=== PATIENT | female | born 1940 | race Caucasian/White ===

== ENCOUNTER 2022-07-01 10:46 | Outpatient (RCR) | payer MEDICARE, BC, SELFPAY | END 2022-12-28 23:59 | disposition home or self-care (01) | LOC: CCIC 10:46 | PROVIDERS: PCP Internal Medicine; Visit Provider Nurse Practitioner Family | DX: C50.912 Malignant neoplasm of unspecified site of left female breast (principal); Z17.0 Estrogen receptor positive status [ER+]; Z79.810 Long term (current) use of selective estrogen receptor modulators (SERMs) | CPT/HCPCS: 99212; 99213; 99214 ==

== ENCOUNTER 2022-07-02 08:40 | Outpatient (CLI) | payer MEDICARE, BC, SELFPAY ==
--- OUTSIDE RECORDS SUMMARY | 2022-07-02 08:44 | XMS_ITS | Encounter Summary ---
:1940 Author Organization [facility] Address [address] [place] [address] Care Team Providers Name Role Phone Elsewhere, Pcp Primary Care Provider Unavailable Reason for Visit Appointment Request (Routine) - Closed Specialty Diagnoses / Procedures Referred By Contact Refer red To Contact Preventive Medicine Referral ID Status Reason Start Date Expiration Date Visits Requ ested Visits Authorized [id number] Closed 07/09/2019 07/08/2020 1 Encounter Details Date Type Department Care Team Description 07/09/2019 Immunization Section of Preventive, Need Vaccine Transportation and Immunizat ion Influenza Occupational Medicine in [place], [place] [address] [place] [phone] Social History Tobacco Use Types Packs/Day Years Used Date Smoking Tobacco: Never Assessed Sex Assigned at Date Recorded Not on file documented as of this encounter Plan of Treatment Not on filedocumented as of this encounter Visit Diagnoses Diagnosis Need Vaccine Immunization Influenza documented in this encounter Care Teams Supervisor [employer] Workers Relationship Specialty Start Date End Date Elsewhere, Pcp PCP - General Family Medicine 10/09/18 documented as of this encounter
--- OUTSIDE RECORDS SUMMARY | 2022-07-02 08:44 | XMS_ITS | Encounter Summary ---
:1940 Author Organization [facility] Address [address] [place] [address] Care Team Providers Name Role Phone Elsewhere, Pcp Primary Care Provider Unavailable Reason for Visit Reason Comments Skin Check Appointment Request (Routine) - Closed Specialty Diagnoses / Procedures Referred By Contact Refer red To Contact Dermatology Referral ID Status Reason Start Date Expiration Date Visits Requ ested Visits Authorized [id number] Closed 10/09/2018 10/09/2019 1 Encounter Details Date Type Department Care Team Description 11/14/2018 Office Visit Department of Bethany Talamantes, Josee Acti heydi (Primary Dx); Dermatology in [place] C.N.[place], Sun Damaged Skin; [place], [place] M.S.N. Keratosis Seborrheic; [address] [place]ening [place] [address] [place], [place] [phone] Social History Tobacco Use Types Packs/Day Years Used Date Smoking Tobacco: Never Assessed Sex Assigned at Date Recorded Not on file documented as of this encounter H&P Notes Bethany Talamantes APRN C.N.P., M.S.N. - 11/14/2018 11:15 AM CST SUBJECTIVE CHIEF COMPLAINT / REASON FOR VISIT Skin cancer screening examination HISTORY OF PRESENT ILLNESS DISCLAIMER: Patient was made aware that I am trained as a Family Medicine Specialist and have a special interest in dermatology. However, I am not a tool mechanic. Anything beyond the scope of my abilities or comfort level will be referred to a Watch Inspector of their choosing. Lorraine is a very pleasant 78 y.o.-year-old female who presents for a full skin examination. She has ahistory of extensive sun exposure but denies any personal or family history of skin cancer. She has several spots that she would like evaluated today. Per nursing notes: Reason for visit: FSE More details of current skin concern: Nevus on abdomen Any other skin concerns: No Has the patient previously been a dermatology patient? No Is patient referred by another provider or self referred? Self Personal history of skin cancer? (include details) No Significant history of sun exposure? Yes Two or more blistering sunburns before age 17? Yes History of tanning bed use? No Personal history of other skin problems? No Family history of skin cancer? No Family history of other significant skin problems? No REVIEW OF SYSTEMS Constitutional, integumentary, and allergic/immunologic review of systems is otherwise negative except as otherwise remarked above or below. MEDICATIONS Current Outpatient Prescriptions Medication Sig Dispense Refill ??? ascorbic acid, vitamin C, (ascorbic acid with joseluis hips) 500 mg tablet Take 500 mg by mouth daily. ??? calcium carbonate-vitamin D3 1,250 mg (500 mg calcium)-200 unit per tablet Take 1 tablet by mouth daily with breakfast. ??? vitamins A,C,Y-snae-pjsoku (ICAPS AREDS) 14,320 Units-226 mg-200 Units per capsule Take 2 capsules by mouth daily. ??? exemestane (AROMASIN) 25 mg tablet TAKE ONE TABLET DAILY 90 tablet 2 ??? hydroCHLOROthiazide (HYDRODIURIL) 25 mg tablet 2 ??? levothyroxine (SYNTHROID, LEVOTHROID) 50 mcg tablet 2 No current facility-administered medications for this visit. ALLERGIES Allergies Allergen Reactions ??? Atorvastatin Hives ??? Ezetimibe Hives ??? Hydroxyzine Hallucinations ??? Sulfa (Sulfonamide Antibiotics) Hives ??? Tramadol Hives PAST MEDICAL/SURGICAL HISTORY Negative for skin cancer OBJECTIVE PHYSICAL EXAM GENERAL: Alert and orientated to person, place, and time. Well-nourished and groomed, in no acute distress. SKIN: A full skin examination was performed of the scalp, head, neck, face, hair, chest, abdomen, back, undergarments area, and 4 extremities including palms, soles, digits, and nails. Skin inspected and palpated where appropriate. Eyes and lips including vermilion lips, also examined. There are multiple seborrheic keratosis of the chest, abdomen, back, and extremities of benign appearance with moderately sun damaged skin. On the left preauricular cheek there is a 3-4 mm red scaly papule consistent with actinic keratosis. IMPRESSION/REPORT/PLAN #1 Keratosis Actinic We discussed risks, benefits, and alternatives of treatment and patient consented to destruction with cryotherapy. This premalignant lesion was destroyed with liquid nitrogen cryotherapy today. Post care instructions provided and patient advised to follow up this lesion fails to improve or worsens. #2 Sun Damaged Skin Due to chronic sun damage in order to reduce risk of skin cancer and flare of photo-sensitive dermatoses, we recommend use of broad-spectrum UVA/UVB 30 SPF or higher sunscreen 2 times daily to the skinand reapply when going outdoors for more than 30 minutes. #3 Keratosis Seborrheic The benign nature of the skin lesion(s) was discussed with the patient. No treatment is required. I recommend continued observation. Should symptoms or changes develop related to this condition, I would recommend a return visit for reassessment. #4 Screening Examination Skin Cancer A skin cancer screening was performed of the areas described above. The patient has a history of sundamaged skin. Therefore, recommended routine skin self- examinations with the aid of another trusted individual for assistance to evaluate for new, changing, symptomatic, or otherwise worrisome lesions of the skin as these can be signs of skin cancer. ABCDEs of melanoma discussed. Photoprotection was advised and strategies identified. Otherwise, return to Dermatology in 12-24 months for a full head-to-toe skin cancer screening. PATIENT EDUCATION Ready to learn, no apparent learning barriers were identified; learning preferences include listening. Explained diagnosis and treatment plan; patient expressed understanding of the content. GER FOOD SAFETY documented in this encounter Plan of Treatment Not on filedocumented as of this encounter Visit Diagnoses Diagnosis Keratosis Actinic - Primary Sun Damaged Skin Keratosis Seborrheic Screening Examination Skin Cancer documented in this encounter Care Teams Oracle R12 Developer Relationship Specialty Start Date End Date Elsewhere, Pcp PCP - General Family Medicine 10/09/18 documented as of this encounter
--- OUTSIDE RECORDS SUMMARY | 2022-07-02 08:44 | XMS_ITS | Encounter Summary ---
:1940 Author Organization [facility] Address [address] [place] [address] Care Team Providers Name Role Phone Elsewhere, Pcp Primary Care Provider Unavailable Reason for Referral Outpatient (Routine) - Closed Specialty Diagnoses / Referred By Referred To Cont act Procedures Contact Gastroenterology and Dorian Mensah [facility] Hepatology Tommy, B.Ch., Ph.D. [address] [place] [phone] Referral ID Status Reason Start Date Expiration Date Visits Requ ested Visits Authorized [id number] Closed 11/10/2020 11/10/2021 1 1 utpatient (Routine) - Closed Specialty Diagnoses / Procedures Referred By Contact Refer red To Contact Diagnoses Urgency Fecal Change In Bowel Habit Dorian Mensah M.B., [facility] Procedures Colonoscopy B.Ch., Ph.D. [address] [place] [phone] Referral ID Status Reason Start Date Expiration Date Visits Requ ested Visits Authorized [id number] Closed 11/10/2020 11/10/2021 1 1 utpatient (Routine) - Closed Specialty Diagnoses / Procedures Referred By Contact Refer red To Contact Diagnoses Urgency Fecal Change In Bowel Habit Dorian Mensah M.B., [facility] Procedures Anorectal Manometry B.Ch., Ph.D. [address] [place] [phone] Referral ID Status Reason Start Date Expiration Date Visits Requ ested Visits Authorized [id number] Closed 11/10/2020 11/10/2021 1 1 RANCE COUNSEL Reason for Visit Reason Comments Abdominal Pain [facility] Outpatient (Routine) - Closed Specialty Diagnoses / Referred By Contact Referred To Contact Procedures Gastroenterology and Diagnoses Abdominal Pain Frieda Alfaro [facility] Hepatology Abbie Plunkett [address] [place] [address] Referral ID Status Reason Start Date Expiration Date Visits Requ ested Visits Authorized [id number] Closed 09/16/2020 09/16/2021 1 1 Encounter Details Date Type Department Care Team Description 11/10/2020 Comprehensive Visit Division of Dary Alfaro M.D. [address] [place] [address] Urgency Fecal (Primary Dx); Gastroenterology in Stevie Black M.D., M.S. Abdominal Pain; [place], [place] Change In Bowel Habit [address] [place] [address] Social History Tobacco Use Types Packs/Day Years Used Date Smoking Tobacco: Never Smokeless Tobacco: Never Sex Assigned at Date Recorded Not on file documented as of this encounter Last Filed Vital Signs Vital Sign Reading Time Taken Comments Blood Pressure 154/71 11/10/2020 12:59 PM INSURANCE COUNSEL Pulse 74 11/10/2020 12:59 PM INSURANCE COUNSEL Temperature - - Respiratory Rate - - Oxygen Saturation - - Inhaled Oxygen Concentration - - Weight 74.4 kg (164 lb 0.4 oz) 11/10/2020 12:59 PM INSURANCE COUNSEL Height 165.6 cm (5' 5.2) 11/10/2020 12:59 PM INSURANCE COUNSEL Body Mass Index 27.13 11/10/2020 12:59 PM INSURANCE COUNSEL documented in this encounter Consult Notes Stveie Black M.D., M.S. - 11/10/2020 1:10 PM CST Images from the original note were not included. Referring Physician: Frieda Alfaro M.D. Primary Care Physician: ELSEWHERE, PCP Subjective: Chief Complaint/Reason for Consult: abdominal pain HPI: Mr. Caldwell is a 80-year-old female with history hypertension, hyperthyroidism, breast cancer who is being referred to GI Clinic for evaluation of 6-8 months of abdominal pain and diarrhea. Her symptoms all started sometime in Fall 2019 where she had sudden change in her stool pattern fromqd/qod (stool chart 3-4) with no associated abdominal pain. Starting in 06/2020, her BM changed up to three times daily with associated post defecation abdominal cramping (mid gastric to low abdominal R side that migrates to the deep pelvic region) with stool quality from 6-7. The caliber is approximately pencil width. She endorses urgency but denies rectal pain, tenesmus, melena, hematochezia (with exception of maybepink discolored discharge, sporadically on toilet paper), unintended weight loss, nausea, vomiting, heartburn, epigastric abdominal pain fevers, the rectal mucus discharge. There is no straining associations with achievement BM. With concerns for constipation, she has tried q.i.d. senna with no alleviation of symptoms, increasing amount of gas burden. She sought help withher PCP with imaging findings diverticulosis, significant stool burden seen with initiation of half c up full of MiraLax once daily. She reports there is no alleviation of her symptoms, but made her ???diarrhea?? worse, and more liquid in consistency. She tolerates a regular diet, has never been on any dietary restrictions in the past. No personal history of celiac disease (never been tested), IBD, liver disorders. No family history of IBD. There is no new medication that was started at the time of her onset of symptoms, with exception of starting Aleve 220 mg b.i.d. for her right shoulder pain, as she is currently waiting right shoulder replacement due to COVID 19 pandemic scheduling restrictions. Patient was seen at outside hospital for acute onset of cramping abdominal pain with associated diarrhea, anorexia in 07/2020 She has had outside workup as notable as following: Endoscopy History: Colonoscopy: 04/2012: WNL 07/2017: 2 tubular adenoma removed (path: unknown): repeat in 5 years 08/28/2020: CT abd/pelvis: Sigmoid diverticulosis, no evidence of acute diverticulitis. Excessive stool burden, negative obstruction of the small bowel. 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 Past Surgical History: Procedure Laterality Date ??? APPENDECTOMY ??? SECTION ??? MASTECTOMY Bilateral ??? THYROIDECTOMY - SUBTOTAL ??? TOTAL KNEE ARTHROPLASTY Bilateral Allergies Allergen Reactions ??? Atorvastatin Hives ??? Ezetimibe Hives ??? Hydroxyzine Hallucinations ??? Sulfa (Sulfonamide Antibiotics) Hives ??? Tramadol Hives Prior to Admission medications Medication Sig Start Date End Date Taking? Authorizing Provider ascorbic acid, vitamin C, (ascorbic acid with joseluis hips) 500 mg tablet Take 500 mg by mouth daily. Yes Provider, Historical calcium carbonate-vitamin D3 1,250 mg (500 mg calcium)-200 unit per tablet Take 1 tablet by mouth daily with breakfast. Yes Provider, Historical hydroCHLOROthiazide (HYDRODIURIL) 25 mg tablet 10/02/18 Yes Provider, Historical levothyroxine (SYNTHROID, LEVOTHROID) 50 mcg tablet 08/21/18 Yes Provider, Historical lisinopriL (PRINIVIL,ZESTRIL) 10 mg tablet Take 10 mg by mouth daily. Yes Provider, Historical naproxen sodium (ALEVE/ANAPROX) 220 mg tablet Take 220 mg by mouth 2 (two) times a day with meals. Yes Provider, Historical vitamins A,C,O-attv-ugtdey (ICAPS AREDS) 14,320 Units-226 mg-200 Units per capsule Take 2 capsules by mouth daily. Yes Provider, Historical exemestane (AROMASIN) 25 mg tablet T1T DAILY Patient not taking: Reported on 11/10/2020 12/19/19 Ariana Sanchez M.D. No family history on file. Family History of: Details Colon Cancer [x] No [] Yes Inflammatory Bowel Disease [x] No [] Yes Liver Disease [x] No [] Yes Social History Socioeconomic History ??? Marital status: Spouse name: None ??? Number of children: None ??? Years of education: None ??? Highest education level: None Occupational History ??? None Social Needs ??? Financial resource strain: None ??? Food insecurity Worry: None Inability: None ??? Transportation needs Medical: None Non-medical: None Tobacco Use ??? Smoking status: Never Smoker ??? Smokeless tobacco: Never Used Substance and Sexual Activity ??? Alcohol use: None ??? Drug use: None ??? Sexual activity: None Lifestyle ??? Physical activity Days per week: None Minutes per session: None ??? Stress: None Relationships ??? Social connections Talks on phone: None Gets together: None Attends yazidism service: None Active member of club or organization: None Attends meetings of clubs or organizations: None Relationship status: None ??? Intimate partner violence Fear of current or ex partner: None Emotionally abused: None Physically abused: None Forced sexual activity: None Other Topics Concern ??? None Social History Narrative ??? None Blood Transfusions:No NSAID use: Frequent: aleve 220 BID since 08/2020 Tattoos: No Review of Systems Pertinent items are noted in HPI. Objective: Vital Signs: Blood Pressure: (154)/(71) 154/71 Pulse Rate: [74] 74 Physical Exam Constitutional General: She is not in acute distress. Appearance: She is normal weight. She is not toxic-appearing. HENT Head: Normocephalic. Nose: Nose normal. Mouth/Throat: Mouth: Mucous membranes are dry. Pharynx: No oropharyngeal exudate or posterior oropharyngeal erythema. Eyes Extraocular Movements: Extraocular movements intact. Conjunctiva/sclera: Conjunctivae normal. Pupils: Pupils are equal, round, and reactive to light. Cardiovascular Rate and Rhythm: Normal rate and regular rhythm. Pulses: Normal pulses. Pulmonary Effort: Pulmonary effort is normal. Abdominal General: Abdomen is flat. Bowel sounds are normal. There is no distension. Palpations: There is no mass. Tenderness: There is abdominal tenderness. There is no guarding or rebound. Hernia: No hernia is present. Comments: Tenderness along LLQ and RLQ on palpation. Active bowel sounds. Palpable lumps along LLQ concerning for stool Genitourinary Neurological Mental Status: She is alert. I have obtained additional historical information from a family member or outside physician. Important points: per HPI Assessment/Plan: # Abdominal pain # Diarrhea # Change in bowel habitus Mr. Caldwell is a 80-year-old female with history hypertension, hyperthyroidism, breast cancer who is being referred to GI Clinic for evaluation of 6-8 months of abdominal pain and diarrhea. Her clinicalpresentation and exam is concerning for overflow diarrhea in the setting of evacuation disorder (I.e., pelvic floor dysfunction). There is no alarm/red flag symptoms such as personal/family hx of CRC, IBD, unintended weight loss or any surgical history concerning for any structural cause of her symptoms. However, it is notable that patient has had quite the sudden changes in bowel habitus, thus warrants a colonoscopy to interrogate for any occult mass or structural abnormality leading to her symptoms. The plan would be to obtain basic labs (CBC, celiac, etc) + anorectal manometry + colonoscopy and see Dr. Mensah back in clinic to discuss these results. Electronically signed by: Stevie Black M.D., M.S. 11/10/2020 1:52 PM INSURANCE COUNSEL Patient Education: Ready to learn, no apparent learning barriers were identified; learning preferences include listening. Explained diagnosis and treatment plan; patient expressed understanding of the content The patient's case was discussed and staffed with Dr. Mensah who agrees with the documented findings, assessment, and plan. Stevie Black M.D. PGY-2 Internal Medicine Resident Pager [phone] RANCE COUNSEL Dorian Mensah M.B., B.Ch., Ph.D. - 11/10/2020 1:10 PM CST Date of Consultation: 11/10/2020 Referring Provider: Frieda Alfaro M.D. Primary Care Physician: Primary Care Providers: Pcp, Elsewhere (General) No address on file Chief Complaint/Reason for Consult: Urgency Fecal [R15.2] SUBJECTIVE Lorraine Caldwell is a 80 y.o[address] female attending [facility] for evaluation of change in bowel habit. From passing 1 Hettinger stool scale type 3-4 bowel movement every day or every other day, with the use of Senokot regularly, she is now passing 3-4 Hettinger stool scale type 6-7 bowel movements associated with significant urgency and postprandial crampy abdominal pain. She has had no accidents but this is more because she is staying at home due to the pandemic. She has no weight loss, no nausea, no vomiting, no substantial fullness. Last colonoscopy was in 2015 demonstrated some tubular adenomas for evidence of cancer. Her personal history is pertinent for bilateral breast cancer both removed with surgery but no radiation or chemotherapy, tubal ligation. She has not had a cholecystectomy. ASSESSMENT / PLAN I have reviewed the history, examination and management plan with Dr Black the. I am in agreement with the substantive information provided in Eun Black's medical note. Any exceptions from this are documented in this note. #1 Abdominal Pain #2 Urgency Fecal #3 Change In Bowel Habit In talking to her in more detail she has a lifelong history of intermittent constipation, especiallyin times of stress. Last of her friend from pancreatic cancer. Will proceed anorectal manometry. We will perform some laboratory investigation. We will proceed to colonoscopy. I will see her back with the results of these investigations. RANCE COUNSEL documented in this encounter Plan of Treatment Scheduled Referrals Name Type Priority Associated Order Schedule Diagnoses Gastroenterology and Outpatient Routine Expecte d: Hepatology office visit Referral 10/21 (clinic) (Approximate), Expires: 11/10/2023 documented as of this encounter Results Anorectal Manometry (11/14/2020 5:25 PM INSURANCE COUNSEL) Narrative This result has an attachment that is no t available. Dorian Sanders, Kingsley., Ph.D. GI PROCEDURE ORDER BIBI Performing Organization Address City/State/[facility] Code Phon e Number MMODAL Ferritin (11/10/2020 3:14 PM INSURANCE COUNSEL) P athologist Signature Ferritin, S 91 11 - 307 11/10/2020 DTL mcg/L 4:36 PM INSURANCE COUNSEL Specimen Anatomical Collection Method Collection Time Receive d Time (Source) Location / / Volume Laterality Blood (Blood, 11/10/2020 3:14 PM 11/10/19 3:37 Venous) INSURANCE COUNSEL PM INSURANCE COUNSEL Dorian Sanders B.Ch., Ph.D. LAB BLOOD ADD-ON Performing Organization Address City/State/[facility] Phon e Number [facility] - [address] Iron and Total Iron-Binding Capacity (11/10/2020 3:14 PM INSURANCE COUNSEL) athologist [facility] Iron 85 35 - 145 11/10/2020 DTL mcg/dL 4:07 PM INSURANCE COUNSEL Total Iron 268 250 - 400 11/10/2020 DTL Binding Capacity mcg/dL 4:07 PM INSURANCE COUNSEL Percent 32 14 - 50 % 11/10/2020 DTL Saturation 4:07 PM INSURANCE COUNSEL Specimen Anatomical Collection Method Collection Time Receive d Time (Source) Location / / Volume Laterality Blood (Blood, 11/10/2020 3:14 PM 11/10/19 3:37 Venous) INSURANCE COUNSEL PM INSURANCE COUNSEL Dorian Sanders, B.Ch., Ph.D. LAB BLOOD ADD-ON Performing Organization Address [place]/[facility] Phon e Number [facility] - [address] (ABNORMAL) Comprehensive Metabolic Panel (11/10/2020 3:14 PM INSURANCE COUNSEL) athologist [facility] Potassium, S 4.3 3.6 - 5.2 11/10/2020 DTL mmol/L 4:05 PM INSURANCE COUNSEL Sodium, S 137 135 - 145 11/10/2020 DTL mmol/L 4:05 PM INSURANCE COUNSEL Chloride, S 98 98 - 107 11/10/2020 DTL mmol/L 4:05 PM INSURANCE COUNSEL Bicarbonate, S 30 (H) 22 - 29 11/10/2020 DTL mmol/L 4:05 PM INSURANCE COUNSEL Anion Gap 9 7 - 15 11/10/2020 DTL 4:05 PM INSURANCE COUNSEL BUN (Blood Urea 20 6 - 21 11/10/2020 DTL Nitrogen), S mg/dL 4:05 PM INSURANCE COUNSEL Creatinine 0.97 0.59 - 11/10/2020 DTL 1.04 mg/dL 4:05 PM INSURANCE COUNSEL eGFR-Non 56 (L) >=60 11/10/2020 DTL Black/ mL/min/BSA 4:05 PM INSURANCE COUNSEL Greek Comment: ----ADDITIONAL INFORMATION---- Estimated GFR calculated using the 2009 CKD_EPI creatinine equation. eGFR-Black/ 64 >=60 mL/min/BSA 2020 4:05 PM INSURANCE COUNSEL DTL Comment: ----ADDITIONAL INFORMATION---- Estimated GFR calculated using the 2009 CKD_EPI creatinine equation. Calcium, Total, S 9.4 8.8 - 10.2 mg/dL 11/10/2020 4:05 PM INSURANCE COUNSEL DTL Glucose, S 86 70 - 140 mg/dL 11/10/2020 4:05 PM INSURANCE COUNSEL D TL Protein, Total, S 6.4 6.3 - 7.9 g/dL 11/10/2020 4:05 P M INSURANCE COUNSEL DTL Albumin, S 4.3 3.5 - 5.0 g/dL 11/10/2020 4:05 PM INSURANCE COUNSEL D TL Aspartate Aminotransferase (AST), 21 8 - 43 U/L 11/10 4:05 PM INSURANCE COUNSEL DTL S Alkaline Phosphatase, S 78 35 - 104 U/L 11/10/2020 4: 05 PM INSURANCE COUNSEL DTL Alanine Aminotransferase (ALT), S 21 7 - 45 U/L 11/10 4:05 PM INSURANCE COUNSEL DTL Bilirubin, Total, S 0.3 <=1.2 mg/dL 11/10/2020 4:05 PM INSURANCE COUNSEL DTL Specimen Anatomical Collection Method Collection Time Receive d Time (Source) Location / / Volume Laterality Blood (Blood, 11/10/2020 3:14 PM 11/10/19 3:37 Venous) INSURANCE COUNSEL PM INSURANCE COUNSEL Dorian Sanders B.Ch., Ph.D. LAB BLOOD ADD-ON Performing Organization Address City/State/ZIP Code Phon e Number [facility] - [address] [place], [place] [address] [facility] [place] [address] [facility] [address] (ABNORMAL) CBC without Differential (11/10/2020 3:14 PM INSURANCE COUNSEL) [facility] Method Time Signature Hemoglobin 15.0 11.6 - 11/10/2020 DTL 15.0 g/dL 3:44 PM INSURANCE COUNSEL Hematocrit 45.7 (H) 35.5 - 11/10/2020 DTL 44.9 % 3:44 PM INSURANCE COUNSEL Erythrocytes 4.82 3.92 - 11/10/2020 DTL 5.13 3:44 PM INSURANCE COUNSEL x10(12)/L MCV 94.8 78.2 - 11/10/2020 DTL 97.9 fL 3:44 PM INSURANCE COUNSEL RBC Distrib Width 13.5 12.2 - 11/10/2020 DTL 16.1 % 3:44 PM INSURANCE COUNSEL Platelet Count 199 157 - 371 11/10/2020 DTL x10(9)/L 3:44 PM INSURANCE COUNSEL Leukocytes 4.9 3.4 - 9.6 11/10/2020 DTL x10(9)/L 3:44 PM INSURANCE COUNSEL Specimen Anatomical Collection Method Collection Time Receive d Time (Source) Location / / Volume Laterality Blood (Blood, 11/10/2020 3:14 PM 11/10/19 3:37 Venous) INSURANCE COUNSEL PM INSURANCE COUNSEL Dorian Sanders, B.Ch., Ph.D. LAB BLOOD ADD-ON Performing Organization Address City/State/ZIP Code Phon e Number [facility] - 200 [place], [place] [address] [facility] [place] [address] [facility] 200 [facility] Celiac Disease Serology [place] (11/10/2020 3:14 PM INSURANCE COUNSEL) Component Value Ref Test Analysis Performed Pathologis t Range Method Time At Signature Immunoglobulin A 131 61 - 356 11/11/2020 [facility] (IgA), S mg/dL 7:06 PM INSURANCE COUNSEL Celiac Disease Negative serology. Celiac di sease unlikely. However, approximately 10% of 11/12/2020 [facility] Interpretation patients with celiac disease are seronegative. Also, patients who are already 11:39 AM adhering to a gluten-free diet may be seronegative. If zelda iac disease is INSURANCE COUNSEL highly clinically suspected, consider HLA-DQ typing. Specimen Anatomical Collection Method Collection Time Receive d Time (Source) Location / / Volume Laterality Blood (Blood, 11/10/2020 3:14 PM 11/11/19 6:21 Venous) INSURANCE COUNSEL AM INSURANCE COUNSEL Narrative [facility] [address] SUPPORT REGINALDO R - 11/12/2020 11:39 AM INSURANCE COUNSEL Specimen Information: Specimen ID: [id number] Specimen Type: Blood Specimen Collection Start Date: 11/10/19 ??3:14 PM Specimen Received Date: 11/11/2020 ??6:2 1 AM Specimen ID: [id number] Specimen Type: Blood Specimen Collection Start Date: 11/10/19 ??3:14 PM Specimen Received Date: 11/11/2020 ??7:1 0 AM Dorian Sanders B.ChTong, Ph.D. LAB BLOOD ADD-ON Performing Organization Address City/State/ZIP Code Phon e Number [facility] [address] KRISHNA [place] [address] [facility] [place] [address] Laboratory Medicine and Pathology [address] KRISHNA documented in this encounter Visit Diagnoses Diagnosis Urgency Fecal - Primary Abdominal Pain Change In Bowel Habit Abdominal Pain Urgency Fecal Change In Bowel Habit documented in this encounter Care Teams Cascara Bark Cutter Relationship Specialty Start Date End Date Elsewhere, Pcp PCP - General Family Medicine 10/09/18 documented as of this encounter
--- OUTSIDE RECORDS SUMMARY | 2022-07-02 08:44 | XMS_ITS | Encounter Summary ---
:1940 Author Organization [facility] Address [address] [place] [address] Care Team Providers Name Role Phone Elsewhere, Pcp Primary Care Provider Unavailable Reason for Visit Reason Comments GI Motility Patient Education Encounter Details Date Type Department Care Team Description 11/17/2020 Clinical Division of [facility] Mot[facility]; Communication Gastroenterology in [facility] Patient Education [place], [place] Tommy, B.Ch., [address] [facility] [place] [address] Social History Tobacco Use Types Packs/Day Years Used Date Smoking Tobacco: Never Smokeless Tobacco: Never Alcohol Use Standard Drinks/Week Comments Yes 7 (1 standard drink = 0.6 oz pure alcoho l) Sex Assigned at Date Recorded Not on file documented as of this encounter Plan of Treatment Not on filedocumented as of this encounter Visit Diagnoses Not on filedocumented in this encounter Care Teams Spring Clipper Relationship Specialty Start Date End Date Elsewhere, Pcp PCP - General Family Medicine 10/09/18 documented as of this encounter
--- OUTSIDE RECORDS SUMMARY | 2022-07-02 08:44 | XMS_ITS | Encounter Summary ---
:1940 Author Organization [facility] Address [address] [place] [address] Care Team Providers Name Role Phone Unavailable Primary Care Provider Unavailable Reason for Visit Reason Comments Med Refill Encounter Details Date Type Department Care Team Description 10/02/2018 Refill Department of Oncology in [facility] Ariana swift M.D. Med Refill [place], [place] [address] [place] [address] [place], [place] [phone] Social History Tobacco Use Types Packs/Day Years Used Date Smoking Tobacco: Never Assessed Sex Assigned at Date Recorded Not on file documented as of this encounter Plan of Treatment Not on filedocumented as of this encounter Visit Diagnoses Not on filedocumented in this encounter
--- OUTSIDE RECORDS SUMMARY | 2022-07-02 08:44 | XMS_ITS | Encounter Summary ---
:1940 Author Organization [facility] Address [address] [place] [address] Care Team Providers Name Role Phone Elsewhere, Pcp Primary Care Provider Unavailable Encounter Details Date Type Department Care Team Description 01/19/2007 Historical Ophthalmology RST [place] [address] Social History Tobacco Use Types Packs/Day Years Used Date Smoking Tobacco: Never Assessed Sex Assigned at Date Recorded Not on file documented as of this encounter Progress Notes Ian Roy M.D. - 01/19/2007 8:12 AM CDT Eye General CHIEF COMPLAINT ? 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 No diplopia. She had pain in august and September but no eye pain now. Red and dry eyes. Genteal will help with the dry eyes. Thyroid: hyper in past, had surgical thyroidectomy at least 15 yrs ago in [facility]. On synthroid now Eyes: last year thought she had allergies, then in 07-25 had some discomfort OU. Was on cortisone drops during Sep which helped. Now does not have FBS, mild photophobia, no tearing, no pain/pressure, no diplopia. biggest concern is am I developing graves?. Goal today is definitive Dx. Overall courseis ??? 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 Get TSI #2 chronic blepharitis this might be responsible for her symptoms. Discussed. Warm compresses prn #3 right trochleitis reproduces her pain to press on this. this is her eye pain. Advil for now, could inject if bothers. 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
--- OUTSIDE RECORDS SUMMARY | 2022-07-02 08:44 | XMS_ITS | Encounter Summary ---
:1940 Author Organization [facility] Address [address] [place] [address] Care Team Providers Name Role Phone Elsewhere, Pcp Primary Care Provider Unavailable Encounter Details Date Type Department Care Team Description 11/10/2020 Hospital Encounter Department of Dorian Mensah Pain; Laboratory Medicine O, M.B., B.Ch., Elida cy Fecal; and Pathology, Ph.D. [facility] in [place], [place] [address] [place] [address] Social History Tobacco Use Types Packs/Day Years Used Date Smoking Tobacco: Never Smokeless Tobacco: Never Sex Assigned at Date Recorded Not on file documented as of this encounter Medications at Time of Discharge Medication Sig Dispensed Refills Start Date End Date calcium carbonate-vitamin D3 Take 1 tablet by 0 1,250 mg (500 mg mouth daily with calcium)-200 unit per tablet breakfast. exemestane (AROMASIN) 25 mg T1T DAILY 90 tablet 0 12/19/19 20 tablet hydroCHLOROthiazide 2 10/02/2018 (HYDRODIURIL) 25 mg tablet levothyroxine (SYNTHROID, 2 08/21/2018 LEVOTHROID) 50 mcg tablet lisinopriL Take 10 mg by 0 (PRINIVIL,ZESTRIL) 10 mg mouth daily. tablet vitamins A,C,K-bjfs-jnvtde Take 2 capsules 0 (ICAPS AREDS) 14,320 by mouth daily. Units-226 mg-200 Units per capsule ascorbic acid, vitamin C, Take 500 mg by 0 03/01/2022 (VITAMIN C) 500 mg tablet mouth daily. naproxen sodium Take 220 mg by 0 03/01 (ALEVE/ANAPROX) 220 mg mouth 2 (two) tablet times a day with meals. [id number] Drink 1st portion 1 box(es) 0 11/10/20201 tta-IaLp-LNp-asb-C of prep at 6 PM (MOVIPREP) 100-7.5-2.691 the evening gram per packet before. 2nd portion must be started 3 hours before and finished 2 hours prior to report time documented as of this encounter Plan of Treatment Not on filedocumented as of this encounter Procedures Procedure Name Priority Date/Time Associated Comments Diagnosis CELIAC DISEASE SEROLOGY Routine 11/10/2020 3:14 Abdomina l Pain Results for this CASCADE, S PM ADMISSIONS ASSISTANT Urgency Fecal procedure are in Change In Bowel the results Habit section. IRON AND TOT Routine 11/10/2020 3:14 Abdominal Pain Results for this IRON-BINDING CAPACITY, PM ADMISSIONS ASSISTANT Urgency F ecal procedure are in S/P Change In Bowel the results Habit section. TISSUE TRANSGLUTAMINASE Routine 11/10/2020 3:14 R esults for this (TTG) AB, IGA, S PM ADMISSIONS ASSISTANT procedure a re in the results section. CBC WITHOUT Routine 11/10/2020 3:14 Abdominal Pain Results for this DIFFERENTIAL, B PM ADMISSIONS ASSISTANT Urgency Fecal procedure are in Change In Bowel the results Habit section. FERRITIN, S Routine 11/10/2020 3:14 Abdominal Pain Results for this PM ADMISSIONS ASSISTANT Urgency Fecal procedure are in Change In Bowel the results Habit section. COMPREHENSIVE METABOLIC Routine 11/10/2020 3:14 Abdomina l Pain Results for this PANEL, S/P PM ADMISSIONS ASSISTANT Urgency Fecal procedure are in Change In Bowel the results Habit section. documented in this encounter Results tTG (Tissue Transglutaminase), Antibody, IgA (11/10/2020 3:14 PM ADMISSIONS ASSISTANT) Patholo gist Method Time Signature Tissue <1.2 <4.0 11/12/2020 [facility] Transglutaminase Ab, (Negative 10:48 AM ADMISSIONS ASSISTANT IgA, S ) U/mL Specimen Anatomical Collection Method Collection Time Receive d Time (Source) Location / / Volume Laterality Blood 11/10/2020 3:14 PM 7:55 ADMISSIONS ASSISTANT PM ADMISSIONS ASSISTANT Dorian Sanders, B.Ch., Ph.D. LAB BLOOD ADD-ON Performing Organization Address City/State/ZIP Code Phon e Number [facility] [address] [place], [place] [address] SUPPORT CENTER [facility] [place] [address] Laboratory Medicine and Pathology [address] [place] Ferritin (11/10/2020 3:14 PM ADMISSIONS ASSISTANT) athologist Signature Ferritin, S 91 11 - 307 11/10/2020 DTL mcg/L 4:36 PM ADMISSIONS ASSISTANT Specimen Anatomical Collection Method Collection Time Receive d Time (Source) Location / / Volume Laterality Blood (Blood, 11/10/2020 3:14 PM 11/10/19 3:37 Venous) ADMISSIONS ASSISTANT PM ADMISSIONS ASSISTANT Dorian Sanders, B.Ch., Ph.D. LAB BLOOD ADD-ON Performing Organization Address [facility] Phon e Number [facility] - [address] Iron and Total Iron-Binding Capacity (11/10/2020 3:14 PM ADMISSIONS ASSISTANT) athologist [facility] Iron 85 35 - 145 11/10/2020 DTL mcg/dL 4:07 PM ADMISSIONS ASSISTANT Total Iron 268 250 - 400 11/10/2020 DTL Binding Capacity mcg/dL 4:07 PM ADMISSIONS ASSISTANT Percent 32 14 - 50 % 11/10/2020 DTL Saturation 4:07 PM ADMISSIONS ASSISTANT Specimen Anatomical Collection Method Collection Time Receive d Time (Source) Location / / Volume Laterality Blood (Blood, 11/10/2020 3:14 PM 11/10/19 3:37 Venous) ADMISSIONS ASSISTANT PM ADMISSIONS ASSISTANT Dorian Sanders, B.Ch., Ph.D. LAB BLOOD ADD-ON Performing Organization Address City/[facility] Phon e Number [facility] - [address] [place], [place] [id number] [place] [address] (ABNORMAL) Comprehensive Metabolic Panel (11/10/2020 3:14 PM ADMISSIONS ASSISTANT) athologist [facility] Potassium, S 4.3 3.6 - 5.2 11/10/2020 DTL mmol/L 4:05 PM ADMISSIONS ASSISTANT Sodium, S 137 135 - 145 11/10/2020 DTL mmol/L 4:05 PM ADMISSIONS ASSISTANT Chloride, S 98 98 - 107 11/10/2020 DTL mmol/L 4:05 PM ADMISSIONS ASSISTANT Bicarbonate, S 30 (H) 22 - 29 11/10/2020 DTL mmol/L 4:05 PM ADMISSIONS ASSISTANT Anion Gap 9 7 - 15 11/10/2020 DTL 4:05 PM ADMISSIONS ASSISTANT BUN (Blood Urea 20 6 - 21 11/10/2020 DTL Nitrogen), S mg/dL 4:05 PM ADMISSIONS ASSISTANT Creatinine 0.97 0.59 - 11/10/2020 DTL 1.04 mg/dL 4:05 PM ADMISSIONS ASSISTANT eGFR-Non 56 (L) >=60 11/10/2020 DTL Black/ mL/min/BSA 4:05 PM ADMISSIONS ASSISTANT Mal[place]ian Comment: ----ADDITIONAL INFORMATION---- Estimated GFR calculated using the 2009 CKD_EPI creatinine equation. eGFR-Black/ 64 >=60 mL/min/BSA 2020 4:05 PM ADMISSIONS ASSISTANT DTL Comment: ----ADDITIONAL INFORMATION---- Estimated GFR calculated using the 2009 CKD_EPI creatinine equation. Calcium, Total, S 9.4 8.8 - 10.2 mg/dL 11/10/2020 4:05 PM ADMISSIONS ASSISTANT DTL Glucose, S 86 70 - 140 mg/dL 11/10/2020 4:05 PM ADMISSIONS ASSISTANT D TL Protein, Total, S 6.4 6.3 - 7.9 g/dL 11/10/2020 4:05 P M ADMISSIONS ASSISTANT DTL Albumin, S 4.3 3.5 - 5.0 g/dL 11/10/2020 4:05 PM ADMISSIONS ASSISTANT D TL Aspartate Aminotransferase (AST), 21 8 - 43 U/L 11/10 4:05 PM ADMISSIONS ASSISTANT DTL S Alkaline Phosphatase, S 78 35 - 104 U/L 11/10/2020 4: 05 PM ADMISSIONS ASSISTANT DTL Alanine Aminotransferase (ALT), S 21 7 - 45 U/L 11/10 4:05 PM ADMISSIONS ASSISTANT DTL Bilirubin, Total, S 0.3 <=1.2 mg/dL 11/10/2020 4:05 PM ADMISSIONS ASSISTANT DTL Specimen Anatomical Collection Method Collection Time Receive d Time (Source) Location / / Volume Laterality Blood (Blood, 11/10/2020 3:14 PM 11/10/19 3:37 Venous) ADMISSIONS ASSISTANT PM ADMISSIONS ASSISTANT Dorian O Rodrick M.B., B.Ch., Ph.D. LAB BLOOD ADD-ON Performing Organization Address [facility] Phon e Number [facility] - [address] (ABNORMAL) CBC without Differential (11/10/2020 3:14 PM ADMISSIONS ASSISTANT) Patholo gist Method Time Signature Hemoglobin 15.0 11.6 - 11/10/2020 DTL 15.0 g/dL 3:44 PM ADMISSIONS ASSISTANT Hematocrit 45.7 (H) 35.5 - 11/10/2020 DTL 44.9 % 3:44 PM ADMISSIONS ASSISTANT Erythrocytes 4.82 3.92 - 11/10/2020 DTL 5.13 3:44 PM ADMISSIONS ASSISTANT x10(12)/L MCV 94.8 78.2 - 11/10/2020 DTL 97.9 fL 3:44 PM ADMISSIONS ASSISTANT RBC Distrib Width 13.5 12.2 - 11/10/2020 DTL 16.1 % 3:44 PM ADMISSIONS ASSISTANT Platelet Count 199 157 - 371 11/10/2020 DTL x10(9)/L 3:44 PM ADMISSIONS ASSISTANT Leukocytes 4.9 3.4 - 9.6 11/10/2020 DTL x10(9)/L 3:44 PM ADMISSIONS ASSISTANT Specimen Anatomical Collection Method Collection Time Receive d Time (Source) Location / / Volume Laterality Blood (Blood, 11/10/2020 3:14 PM 11/10/19 3:37 Venous) ADMISSIONS ASSISTANT PM ADMISSIONS ASSISTANT Dorian Sanders B.Ch., Ph.D. LAB BLOOD ADD-ON Performing Organization Address City/[facility] Phon e Number [facility] - 200 [place], [place] [address] [facility] [address] Celiac Disease Serology [place] (11/10/2020 3:14 PM ADMISSIONS ASSISTANT) Component Value Ref Test Analysis Performed Pathologis t Range Method Time At Signature Immunoglobulin A 131 61 - 356 11/11/2020 [facility]SC (IgA), S mg/dL 7:06 PM ADMISSIONS ASSISTANT Celiac Disease Negative serology. Celiac di sease unlikely. However, approximately 10% of 11/12/2020 [facility] Interpretation patients with celiac disease are seronegative. Also, patients who are already 11:39 AM adhering to a gluten-free diet may be seronegative. If zelda iac disease is ADMISSIONS ASSISTANT highly clinically suspected, consider HLA-DQ typing. Specimen Anatomical Collection Method Collection Time Receive d Time (Source) Location / / Volume Laterality Blood (Blood, 11/10/2020 3:14 PM 11/11/19 6:21 Venous) ADMISSIONS ASSISTANT AM ADMISSIONS ASSISTANT Narrative [facility] SUPPORT REGINALDO R - 11/12/2020 11:39 AM ADMISSIONS ASSISTANT Specimen Information: Specimen ID: [id number] Specimen Type: Blood Specimen Collection Start Date: 11/10/19 ??3:14 PM Specimen Received Date: 11/11/2020 ??6:2 1 AM Specimen ID: [id number] Specimen Type: Blood Specimen Collection Start Date: 11/10/19 ??3:14 PM Specimen Received Date: 11/11/2020 ??7:1 0 AM Dorian Sanders, B.Ch., Ph.D. LAB BLOOD ADD-ON Performing Organization Address City/State/ZIP Code Phon e Number [facility] [address] [place] [address] SUPPORT CENTER [facility] [place] [address] Laboratory Medicine and Pathology [address] [place] documented in this encounter Visit Diagnoses Diagnosis Abdominal Pain Urgency Fecal Change In Bowel Habit documented in this encounter Care Teams Field Sales Agent Relationship Specialty Start Date End Date Elsewhere, Pcp PCP - General Family Medicine 10/09/18 documented as of this encounter
--- OUTSIDE RECORDS SUMMARY | 2022-07-02 08:44 | XMS_ITS | Encounter Summary ---
:1940 Author Organization [facility] Address [address] [place] [address] Care Team Providers Name Role Phone Elsewhere, Pcp Primary Care Provider Unavailable Reason for Visit Reason Comments GI Motility Local PT order Encounter Details Date Type Department Care Team Description 11/19/2020 Clinical Division of Rodrick GI Motility; Karla power Communication Gastroenterology in [place], [place] Tommy, B.Ch., [address] [facility] [address] Social History Tobacco Use Types Packs/Day Years [...] on filedocumented in this encounter Care Teams Facility Coordinator Relationship Specialty Start Date End Date Elsewhere, Pcp PCP - General Family Medicine 10/09/18 documented as of this encounter
--- OUTSIDE RECORDS SUMMARY | 2022-07-02 08:44 | XMS_ITS | Clinical Summary ---
:1940 Author Organization [facility] Address [address] [place] [address] Care Team Providers Name Role Phone Elsewhere, Pcp Primary Care Provider Unavailable Source Comments Patient records contain information from all sites at [facility]. For routine questions regarding patient records, call [phone] during business hours, M-F 8:00 AM - 5:00 PM Central Time. Record requests for emergency care only can be directed to [phone] at any time.[facility] Allergies Active Allergy Reactions Severity Noted Date Comments Atorvastatin Hives 01/19/2007 Ezetimibe Hives 01/19/2007 Hydroxyzine Hallucinations 03/14/2018 Sulfa (Sulfonamide Antibiotics) Hives 7 Tramadol Hives 01/19/2007 Medications Medication Sig Dispensed Refills Start Date End Date Status hydroCHLOROthiazide 2 10/02/2018 Active (HYDRODIURIL) 25 mg tablet levothyroxine (SYNTHROID, 2 08/21/2018 Active LEVOTHROID) 50 mcg tablet vitamins A,C,W-pwsj-pwvlvc Take 2 0 Active (ICAPS AREDS) 14,320 capsules by Units-226 mg-200 Units per mouth daily. capsule calcium carbonate-vitamin Take 1 tablet 0 Active D3 1,250 mg (500 mg by mouth daily calcium)-200 unit per with tablet breakfast. exemestane (AROMASIN) 25 T1T DAILY 90 tablet 0 12/19/2019 Active mg tablet lisinopriL Take 10 mg by 0 Activ e (PRINIVIL,ZESTRIL) 10 mg mouth daily. tablet Immunizations Name Administration Dates Next Due influenza high dose (65 years or older) (PF) 07/09/2019 Social History Tobacco Use Types Packs/Day Years Used Date Smoking Tobacco: Never Smokeless Tobacco: Never Alcohol Use Standard Drinks/Week Comments Yes 7 (1 standard drink = 0.6 oz pure alcoho l) Sex Assigned at Date Recorded Not on file Last Filed Vital Signs Vital Sign Reading Time Taken Comments Blood Pressure 129/55 11/13/2020 3:15 PM [employer]ITAL [employer] INTERN Pulse 60 11/13/2020 3:15 PM [employer] Temperature 36.3 ??C (97.3 ??F) 11/13/2020 3:09 PM D[employer]ITAL [employer]IA INTERN Respiratory Rate 9 11/13/2020 3:15 PM [employer] INTERN Oxygen Saturation 99% 11/13/2020 3:15 PM [employer] INTERN Inhaled Oxygen Concentration - - Weight 74.4 kg (164 lb 0.4 oz) 11/13/2020 12:22 PM D[employer] INTERN Height 165.6 cm (5' 5.2) 11/13/2020 12:22 PM DIGITAL MEDIA INTERN Body Mass Index 27.13 11/13/2020 12:22 PM DIGITAL MEDIA INTERN Plan of Treatment Health Maintenance Due Date Last Done Comments CT Colonography 1940 Cologuard 1940 Thyroid Stimulating Hormone (TSH) 1940 test for thyroid function Depression Screening (Annual 09/19/2021 PHQ-2) Fall Risk Screen (Annual) 09/19/2021 Creatinine Level 11/10/2021 11/10/2020 Potassium Level 11/10/2021 11/10/2020 Sodium Level 11/10/2021 11/10/2020 COVID-19 Vaccine (5 - Booster for 02/23/2022 12/29/2021, , Pfizer series) 11/18/2020, Additional history exists Influenza Vaccine (#1) 2022 06/16/2021, 06/13/2020, 07/09/2019, Additional history exists Colonoscopy 11/13/2025 11/13/2020, 11/13/2020, 11/13/2020 Colorectal Cancer Surveillance 11/13/2025 DTaP,Tdap,and Td Vaccines (3 - Td 12/09/2030 12/09/2020, , or Tdap) 08/07/2003 Pneumococcal vaccine (65+ years) Completed 04/24/2018, , 01/13/2007 Zoster Vaccines Completed 07/26/2018, 04/24/2018, 02/06/2010 Medical Devices Implanted Type Area Abstracter Device Shelf Model / Identifier Expiration Serial / Date Lot Knee Implant Knee Implant Bilateral : Knee Insurance Payer Benefit Plan Subscriber ID Effective Phone Address Typ e / Group Dates MEDICARE MEDICARE A [id number] 2006-Pres [address] [place] [address] [employer] [place] [id number] 2016-Pres [phone] PO PAVAN X Cost Share BLUE SHIELD BLUE COST ent [phone] [place] [address] Advance Directives For more information, please contact: [phone] Documents on File Type Date Recorded Patient Manager Nursing Home Explanati on Advance Directives 11/29/2006 12:00 AM Legacy doc ument. See document viewer. Care Teams Bricklayer'S Assistant Relationship Specialty Start Date End Date Elsewhere, Pcp PCP - General Family Medicine 10/09/18
--- OUTSIDE RECORDS SUMMARY | 2022-07-02 08:44 | XMS_ITS | Encounter Summary ---
:1940 Author Organization [facility] Address [address] [place] [address] Care Team Providers Name Role Phone Elsewhere, Pcp Primary Care Provider Unavailable Reason for Referral Outpatient (Routine) - Closed Specialty Diagnoses / Procedures Referred By Referred To Contact Contact Physical Medicine and Diagnoses Dysfunction Constipation Outlet Dorian Mensah, [facility] Rehabilitation Procedures PMR Pelvic floor & bowel/bladder programs Tommy, B.Ch., Ph.D. [address] [place] [address] Referral ID Status Reason Start Date Expiration Date Visits Requ ested Visits Authorized [id number] Closed 11/17/2020 11/17/2021 1 1 [employer]ATION LAW[employer]ER Reason for Visit Outpatient (Routine) - Closed Specialty Diagnoses / Referred By Referred To Cont act Procedures [facility] Tommy, B.Ch., Ph.D. [address] [place] [address] Referral ID Status Reason Start Date Expiration Date Visits Requ ested Visits Authorized [id number] Closed 11/10/2020 11/10/2021 1 1 Encounter Details Date Type Department Care Team Description 11/17/2020 Virtual Visit Division of Cristopher Mensah Gastroenterology in [place] Consti p[place], [place] B.Ch., Ph.D. (Primary Dx) [address] [place] [phone] Social History Tobacco Use Types Packs/Day Years Used Date Smoking Tobacco: Never Smokeless Tobacco: Never Alcohol Use Standard Drinks/Week Comments Yes 7 (1 standard drink = 0.6 oz pure alcoho l) Sex Assigned at Date Recorded Not on file documented as of this encounter Progress Notes Dorian Mensah M.B., B.Ch., Ph.D. - 11/17/2020 10:00 AM CST Date of Consultation: 11/17/2020 This was a virtual visit performed by Dr. Dorian Mensah at [facility] in [place] to Lorraine Caldwell in her home by real-time audio. Referring Provider: Tommy Esposito,* Primary Care Physician: Primary Care Providers: Pcp, Elsewhere (General) No address on file Chief Complaint/Reason for Consult: Dysfunction Constipation Outlet [K59.02] SUBJECTIVE Lorraien Caldwell is a 80 y.o. female attending [facility] for evaluation of change in bowel habit. From passing 1 [place] stool scale type 3-4 bowel movement every day or every other day, with the use of Senokot regularly, she is now passing 3-4 [place] stool scale type 6-7 bowel movements associated with significant urgency and postprandial crampy abdominal pain. She has had no accidents but this is more because she is staying at home due to the pandemic. She has no weight loss, no nausea, no vomiting, no substantial fullness. Last colonoscopy was in 2016 demonstrated some tubular adenomas for evidence of cancer. Her personal history is pertinent for bilateral breast cancer both removed with surgery but no radiation or chemotherapy, tubal ligation. She has not had a cholecystectomy. ASSESSMENT / PLAN #1 Constipation Outlet Type Anorectal manometry demonstrates manometric findings suggestive of an evacuation disorder and balloon expulsion test is prolonged. 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 Perhaps the precipitant was the recent passing of her close friend. I recommended pelvic floor physical therapy. She will attempt to source this locally and I have senther some information regarding this. I will organized for her to be sent information on pelvic floordysfunction and the 2 week pelvic floor rehabilitation program at [facility]. . #2 Colorectal Cancer Screening Colonoscopy, performed with good quality bowel preparation, demonstrated diverticular disease but noneoplastic lesions. A shared decision making model should be used to consider repeat colonoscopy forsurveillance purposes in 5 years. This should be undertaken with her primary care physician at the ap propriate time. #3 Follow Up I have not organized for return visit at the current time. If she returns for the 2 week pelvic floor rehabilitation program in consultation with me will be scheduled. This was a 10 minutes consultation of which 10 minutes was spent in counseling the patient. [employer]ATION LAWYER documented in this encounter Plan of Treatment Not on filedocumented as of this encounter Visit Diagnoses Diagnosis Dysfunction Constipation Outlet - Primar y documented in this encounter Care Teams Software Developer Manager Relationship Specialty Start Date End Date Elsewhere, Pcp PCP - General Family Medicine 10/09/18 documented as of this encounter
--- OUTSIDE RECORDS SUMMARY | 2022-07-02 08:44 | XMS_ITS | Encounter Summary ---
:1940 Author Organization [facility] Address [address] [place] [address] Care Team Providers Name Role Phone Elsewhere, Pcp Primary Care Provider Unavailable Reason for Visit Reason Comments Med Refill Encounter Details Date Type Department Care Team Description 12/19/2019 Refill Department of Oncology in [facility] [place] Ariana swift M.D. Med Refill [place], [place] [address] [place] [address] [place], [place] [phone] Social History Tobacco Use Types Packs/Day Years Used Date Smoking Tobacco: Never Assessed Sex Assigned at Date Recorded Not on file documented as of this encounter Plan of Treatment Not on filedocumented as of this encounter Visit Diagnoses Not on filedocumented in this encounter Care Teams Hold Worker Relationship Specialty Start Date End Date Elsewhere, Pcp PCP - General Family Medicine 10/09/18 documented as of this encounter
--- OUTSIDE RECORDS SUMMARY | 2022-07-02 08:44 | XMS_ITS | Encounter Summary ---
:1940 Author Organization [facility] Address [address] [place] [address] Care Team Providers Name Role Phone Elsewhere, Pcp Primary Care Provider Unavailable Reason for Visit Reason Comments Med Refill Encounter Details Date Type Department Care Team Description 02/18/2020 Refill Department of Oncology in [facility] Ariana swift M.D. Med Refill [place], [place] [address] [place] [address] [place], [place] [phone] Social History Tobacco Use Types Packs/Day Years Used Date Smoking Tobacco: Never Assessed Sex Assigned at Date Recorded Not on file documented as of this encounter Plan of Treatment Not on filedocumented as of this encounter Visit Diagnoses Not on filedocumented in this encounter Care Teams Holder Pile Driving Relationship Specialty Start Date End Date Elsewhere, Pcp PCP - General Family Medicine 10/09/18 documented as of this encounter
--- OUTSIDE RECORDS SUMMARY | 2022-07-02 08:44 | XMS_ITS | Encounter Summary ---
:1940 Author Organization [facility] Address [address] [place] [address] Care Team Providers Name Role Phone Elsewhere, Pcp Primary Care Provider Unavailable Encounter Details Date Type Department Care Team Description 05/05/2021 Orders Only [facility] Sa nathalie Alejandre M.D. [address] [place], [place] [phone] (Wo rk) Social History Tobacco Use Types Packs/Day Years [...] on filedocumented in this encounter Care Teams Fabrication And Assembly Supervisor Relationship Specialty Start Date End Date Elsewhere, Pcp PCP - General Family Medicine 10/09/18 documented as of this encounter
--- OUTSIDE RECORDS SUMMARY | 2022-07-02 08:44 | XMS_ITS | Encounter Summary ---
:1940 Author Organization [facility] Address [address] [place] [address] Care Team Providers Name Role Phone Elsewhere, Pcp Primary Care Provider Unavailable Reason for Referral Outpatient (Routine) - Closed Specialty Diagnoses / Procedures Referred By Contact Refer red To Contact Diagnoses Urgency Fecal Change In Bowel Habit Dorian Mensah M.B., [facility] Procedures Anorectal Manometry B.Ch., Ph.D. [address] [place] [address] Referral ID Status Reason Start Date Expiration Date Visits Requ ested Visits Authorized [id number] Closed 11/10/2020 11/10/2021 1 1 ATIONAL CONSULTANT Reason for Visit Outpatient (Routine) - Closed Specialty Diagnoses / Procedures Referred By Contact Refer red To Contact Diagnoses Urgency Fecal Change In Bowel Habit Dorian Mensah M.B., [facility] Procedures Anorectal Manometry B.Ch., Ph.D. [address] [place] [address] Referral ID Status Reason Start Date Expiration Date Visits Requ ested Visits Authorized [id number] Closed 11/10/2020 11/10/2021 1 1 Encounter Details Date Type Department Care Team Description 11/13/2020 Hospital Encounter Division of Rodrick, Urgency F ecal; Gastroenterology in Dorian Camargo Change I n Bowel Habit [place], [place] Tommy, B.Ch., [address] [place] [address] [place] [phone] Social History Tobacco Use Types Packs/Day [...] (PRINIVIL,ZESTRIL) 10 mg mouth daily. tablet vitamins A,C,R-wiqy-umobxn Take 2 capsules 0 (ICAPS AREDS) 14,320 by mouth daily. Units-226 mg-200 Units per capsule ascorbic acid, vitamin C, Take 500 mg by 0 03/01/2022 (VITAMIN C) 500 mg tablet mouth daily. naproxen sodium Take 220 mg by 0 03/01 (ALEVE/ANAPROX) 220 mg mouth 2 (two) tablet times a day with meals. documented as of this encounter Plan of Treatment Not on filedocumented as of this encounter Procedures Procedure Name Priority Date/Time Associated Diagnosis Comme nts ANORECTAL MANOMETRY Routine 11/14/2020 5:25 PM EDUCATIONAL CONSULTANT Urgen cy Fecal Change In Bowel Habit documented in this encounter Results Anorectal Manometry (11/14/2020 5:25 PM EDUCATIONAL CONSULTANT) Narrative This result has an attachment that is no t available. Dorian Sanders B.Ch., Ph.D. GI PROCEDURE ORDER BIBI Performing Organization Address City/State/ZIP Code Phon e Number MMODAL documented in this encounter Visit Diagnoses Diagnosis Urgency Fecal Change In Bowel Habit documented in this encounter Care Teams Senior Production Planner Relationship Specialty Start Date End Date Elsewhere, Pcp PCP - General Family Medicine 10/09/18 documented as of this encounter
--- OUTSIDE RECORDS SUMMARY | 2022-07-02 08:44 | XMS_ITS | Encounter Summary ---
:1940 Author Organization [facility] Address [address] [place] [address] Care Team Providers Name Role Phone Elsewhere, Pcp Primary Care Provider Unavailable Encounter Details Date Type Department Care Team Description 11/13/2020 Ancillary Procedure Department of Gastroenterology Social History Tobacco Use Types Packs/Day Years Used Date Smoking Tobacco: Never Smokeless Tobacco: Never Alcohol Use Standard Drinks/Week Comments Yes 7 (1 standard drink = 0.6 oz pure alcoho l) Sex Assigned at Date Recorded Not on file documented as of this encounter Plan of Treatment Not on filedocumented as of this encounter Procedures Procedure Name Priority Date/Time Associated Comments Diagnosis GASTROENTEROLOGY IMAGE Routine 11/13/2020 2:15 Re sults for this EXAM PM CHRISTMAS TREE FARM WORKER procedure are i n the results section. documented in this encounter Results Colon, Entire colon Colonoscopy-Gastroenterology Image Exam (11/13/2020 2:15 PM CHRISTMAS TREE FARM WORKER) Specimen (Source) Anatomical Collection Method Collection Time Re ceived Time Location / / Volume Laterality 11/13/2020 2:12 PM CHRISTMAS TREE FARM WORKER Narrative [facility] - 11/13/2020 3:16 PM CHRISTMAS TREE FARM WORKER This order has been created and auto-finalized to support the import of images acquired without order. The clini tono documentation to support these images can be found on the encounter jacob t produced images. Provider Not In System IMG NON RAD IMAGING PROCEDUR ES Performing Organization Address City/State/ZIP Code Phon e Number [facility] NA documented in this encounter Visit Diagnoses Not on filedocumented in this encounter Care Teams Auto Overhauler Relationship Specialty Start Date End Date Elsewhere, Pcp PCP - General Family Medicine 10/09/18 documented as of this encounter
--- OUTSIDE RECORDS SUMMARY | 2022-07-02 08:44 | XMS_ITS | Encounter Summary ---
:1940 Author Organization [facility] Address [address] [place] [address] Care Team Providers Name Role Phone Elsewhere, Pcp Primary Care Provider Unavailable Reason for Referral Outpatient (Routine) - Closed Specialty Diagnoses / Procedures Referred By Contact Refer red To Contact Diagnoses Urgency Fecal Change In Bowel Habit Dorian Mensah M.B., [facility] Procedures Colonoscopy B.Ch., Ph.D. [address] [place] [address] Referral ID Status Reason Start Date Expiration Date Visits Requ ested Visits Authorized [id number] Closed 11/10/2020 11/10/2021 1 1 RNET APPLICATION DEVELOPER Reason for Visit Outpatient (Routine) - Closed Specialty Diagnoses / Procedures Referred By Contact Refer red To Contact Diagnoses Urgency Fecal Change In Bowel Habit Dorian Mensah M.B., [facility] Procedures Colonoscopy B.Ch., Ph.D. [address] [place] [address] Referral ID Status Reason Start Date Expiration Date Visits Requ ested Visits Authorized [id number] Closed 11/10/2020 11/10/2021 1 1 Encounter Details Date Type Department Care Team Description 11/13/2020 Hospital Encounter Division of Alvarez Mensah F ecal; Gastroenterology in Dorian Camargo Change I n Bowel Habit [place], [place] Tommy, B.Ch., [address] [place] [address] [place] [phone] Social History Tobacco Use Types Packs/Day Years Used Date Smoking Tobacco: Never Smokeless Tobacco: Never Alcohol Use Standard Drinks/Week Comments Yes 7 (1 standard drink = 0.6 oz pure alcoho l) Sex Assigned at Date Recorded Not on file documented as of this encounter Last Filed Vital Signs Vital Sign Reading Time Taken Comments Blood Pressure 129/55 11/13/2020 3:15 PM INTERNET APPLICATION DEVELOPER Pulse 60 11/13/2020 3:15 PM INTERNET APPLICATION DEVELOPER Temperature 36.3 ??C (97.3 ??F) 11/13/2020 3:09 PM INTERNET APPLICATION DEVELOPER Respiratory Rate 9 11/13/2020 3:15 PM INTERNET APPLICATION DEVELOPER Oxygen Saturation 99% 11/13/2020 3:15 PM INTERNET APPLICATION DEVELOPER Inhaled Oxygen Concentration - - Weight 74.4 kg (164 lb 0.4 oz) 11/13/2020 12:22 PM INTERNET APPLICATION DEVELOPER Height 165.6 cm (5' 5.2) 11/13/2020 12:22 PM INTERNET APPLICATION DEVELOPER Body Mass Index 27.13 11/13/2020 12:22 PM INTERNET APPLICATION DEVELOPER documented in this encounter Medications at Time of Discharge [...] (PRINIVIL,ZESTRIL) 10 mg mouth daily. tablet vitamins A,C,M-caaf-vewqif Take 2 capsules 0 (ICAPS AREDS) 14,320 by mouth daily. Units-226 mg-200 Units per capsule ascorbic acid, vitamin C, Take 500 mg by 0 03/01/2022 (VITAMIN C) 500 mg tablet mouth daily. naproxen sodium Take 220 mg by 0 03/01 (ALEVE/ANAPROX) 220 mg mouth 2 (two) tablet times a day with meals. documented as of this encounter H&P Notes Neda Garcia M.D. - 11/13/2020 2:00 PM CST ASSESSMENT / PLAN Patient Name: Lorraine Caldwell Colonoscopy Procedure Department : DIVISION OF GASTROENTEROLOGY IN [place], [place] SUBJECTIVE Past Medical History: Diagnosis Date ??? Breast Cancer (Primary) NOS danie. ??? Hypertension NOS ??? Polyp Colon ??? Polyp Colon Adenomatous Family History Past Surgical History: Procedure Laterality Date ??? APPENDECTOMY ??? SECTION ??? MASTECTOMY Bilateral ??? MASTECTOMY danie. ??? THYROIDECTOMY - SUBTOTAL ??? TOTAL KNEE ARTHROPLASTY Bilateral OB History No obstetric history on file. Social History Socioeconomic History ??? Marital status: [...] Substance and Sexual Activity ??? Alcohol use: Yes Alcohol/week: 7.0 standard drinks Types: 7 Glasses of wine per week ??? Drug use: Never ??? Sexual activity: None Lifestyle ??? Physical activity Days per week: None Minutes per session: None ??? Stress: None Relationships ??? Social connections Talks on phone: None Gets together: None Attends amish service: None Active member of club or organization: None Attends meetings of clubs or organizations: None Relationship status: None ??? Intimate partner violence Fear of current or ex partner: None Emotionally abused: None Physically abused: None Forced sexual activity: None Other Topics Concern ??? None Social History Narrative ??? None Ambulatory Infusion Pump/Implanted Assembly Line Worker- Peripheral IV Catheter 11/13/20 20 G Left Arm (Active) Site Assessment Clean;Dry;Intact 11/13/20 1415 Lumen Status Fluids infusing 11/13/20 1415 Line Care Line pulled back 11/13/20 1415 Dressing Type Transparent 11/13/20 1415 Dressing Status Clean;Dry;Intact 11/13/20 1415 Peripheral IV Catheter 11/13/20 20 G Left Arm (Active) 11/13/20 1328 Arm Placed by External Staff?: IV Change Due: Size (Gauge): 20 G Length (Inches): Orientation: Left Site Prep: Alcohol Technique: Anatomical landmarks Placed by: cami manuel Insertion attempts: 1 Removal Reason (REQUIRED): Removal Status: Site Assessment Clean;Dry;Intact 11/13/20 1415 Lumen Status Fluids infusing 11/13/20 1415 Line Care Line pulled back 11/13/20 1415 Dressing Type Transparent 11/13/20 1415 Dressing Status Clean;Dry;Intact 11/13/20 1415 Nothing was implanted during the procedure OBJECTIVE Weight: 74.4 kg Pain Score: 0 - No pain Consents Obtained: written The benefits, risks and alternatives of sedation or anesthesia, as well as the names, roles, and responsibilities of the healthcare team members, were discussed with the patient and/or decision maker: yes Procedure / Reason for visit: surveillance The following portions of the patient's history were reviewed and updated as appropriate: allergies,current medications, family history, medical history, surgical history, social history and problem list. yes Review of systems: pertinent ROS negative Mallampati: II - soft palate, uvula, fauces visible Heart: normal Lung: normal General / Constitutional: normal ASA physical exam: class 2 - patient with mild systemic disease Sedation plan: moderate sedation Patient seen, evaluated and approved for sedation/procedure Baseline Behavior: Psychosocial (WDL): Within Defined Limits Abdominal Exam: Abdomen Inspection: Soft, Nondistended Dental Information: Teeth: Intact RNET APPLICATION DEVELOPER documented in this encounter Plan of Treatment Not on filedocumented as of this encounter Procedures Procedure Name Priority Date/Time Associated Diagnosis Comme nts COLONOSCOPY Routine 11/13/2020 2:12 PM Urgency Fecal Results for this INTERNET APPLICATION DEVELOPER Change In Bowel Habit proced ure are in the results section . COLONOSCOPY Routine 11/13/2020 2:12 PM Urgency Fecal INTERNET APPLICATION DEVELOPER Change In Bowel Habit documented in this encounter Results Colonoscopy (11/13/2020 2:12 PM INTERNET APPLICATION DEVELOPER) Specimen (Source) Anatomical Collection Method Collection Time Re ceived Time Location / / Volume Laterality 11/13/2020 2:12 PM INTERNET APPLICATION DEVELOPER Impressions [employer] - 11/13/2020 3:05 PM INTERNET APPLICATION DEVELOPER Post-op Diagnoses: ? - Diverticulosis in the entire ex amined colon. ? - Internal hemorrhoids. ? - No specimens collected. Narrative [employer] - 11/13/2020 3:05 PM INTERNET APPLICATION DEVELOPER Gonda 9 GI GI Patient Name: Lorraine Caldwell Date of : 1940 Age: 80 Gender: Female Procedure Date: 11/13/2020 Procedure: ? Colonosc opy Providers: ? Neda Garcia MD, Gustavo Sahu MD (Fellow) Referring Provider: ?Dorian Chaudhary rd, M.B.,B.Ch., Ph.D. Pre-op Diagnoses: ?High risk c olon cancer surveillance: Personal ? his tory of colonic polyps Recommendation: ? - Repeat colonoscopy in 5 years f or surveillance if previous polyps were ? adenomatous, otherwise shared dec ision making given her current age. Findings: ? The perianal and digital rectal e xaminations were normal. ? Multiple small and large-mouthed diverticula were found in the entire ? colon. ? Internal hemorrhoids were found d uring retroflexion. Procedural Details: ? The patient was seen, evaluated, history reviewed, airway and heart-lung ? exams were performed by licensed provider and were satisfactory for ? planned level of sedation care. ? The risks, benefits and alternati ves for the procedure and sedation were ? discussed and informed consent wa s obtained. A procedural pause was ? conducted in the presence of assi sting personnel to verify the correct ? patient identity and procedure to be performed. Throughout the ? procedure, the patient's blood pr essure, pulse, and oxygen saturations ? were monitored continuously. The Pediatric Colonoscope was introduced ? under direct vision through the a nus and advanced to the cecum, ? identified by appendiceal orifice and ileocecal valve. The colonoscopy ? was performed without difficulty. The patient tolerated the procedure ? well. The quality of the bowel pr eparation was evaluated using the BBPS ? ([place] Bowel Preparation Scale) with scores of: Right Colon = 3, ? Transverse Colon = 3 and Left Col on = 3 (entire mucosa seen well with no ? residual staining, small fragment s of stool or opaque liquid). The total ? BBPS score equals 9. Estimated Blood Loss: ?Estimated blo od loss: none. Complications: ? No immedia te complications. Sedation: ? Moderate (conscious) sedation was administered by the endoscopy nurse ? and supervised by the endoscopist . The patient's oxygen saturation, ? heart rate, blood pressure and re sponse to care were monitored. Total ? physician intraservice time was 3 3 minutes. Attending Participation: I was present a nd participated during the entire ? pro cedure, including non-tinoco portions. Neda Garcia MD 11/13/2020 3:05:18 PM This report has been signed electronical ly. Number of Addenda: 0 Dorian Sanders B.ChTong, Ph.D. GI PROCEDURE ORDER BIBI Performing Organization Address City/State/ZIP Code [facility] e Number [employer] NA documented in this encounter Visit Diagnoses Diagnosis Urgency Fecal Change In Bowel Habit documented in this encounter Administered Medications Inactive Administered Medications - up to 3 most recent administrations Medication Order MAR Action Action Date Dose Rate Site fentaNYL injection (SUBLIMAZE) Given 11/13/2020 2:30 PM INTERNET APPLICATION DEVELOPER 50 mcg intravenous, Code/trauma/sedation medication, Starting on Mary Ann 11/13/20 at 1430 fentaNYL injection (SUBLIMAZE) Given 11/13/2020 2:32 PM INTERNET APPLICATION DEVELOPER 25 mcg intravenous, Code/trauma/sedation medication, Starting on Mary Ann 11/13/20 at 1432 fentaNYL injection (SUBLIMAZE) Given 11/13/2020 2:49 PM INTERNET APPLICATION DEVELOPER 25 mcg intravenous, Code/trauma/sedation medication, Starting on Mary Ann 11/13/20 at 1449 lactated ringers New Bag 11/13/2020 2:30 PM INTERNET APPLICATION DEVELOPER 100 mL/hr 100 mL/hr intravenous, Code/trauma/sedation continuous med, Starting on Mary Ann 11/13/20 at 1430 midazolam (PF) injection (VERSED) Given 11/13/2020 2:30 PM INTERNET APPLICATION DEVELOPER 2 mg Code/trauma/sedation medication, Starting on Mary Ann 11/13/20 at 1430 midazolam (PF) injection (VERSED) Given 11/13/2020 2:32 PM INTERNET APPLICATION DEVELOPER 1 mg Code/trauma/sedation medication, Starting on Mary Ann 11/13/20 at 1432 midazolam (PF) injection (VERSED) Given 11/13/2020 2:49 PM INTERNET APPLICATION DEVELOPER 1 mg Code/trauma/sedation medication, Starting on Mary Ann 11/13/20 at 1449 documented in this encounter Care Teams Account Leader Relationship Specialty Start Date End Date Elsewhere, Pcp PCP - General Family Medicine 10/09/18 documented as of this encounter
--- OUTSIDE RECORDS SUMMARY | 2022-07-02 08:44 | XMS_ITS | Encounter Summary ---
:1940 Author Organization [facility] Address [address] [place] [address] Care Team Providers Name Role Phone Elsewhere, Pcp Primary Care Provider Unavailable Reason for Visit Reason Comments Lesion On face Appointment Request (Routine) - Closed Specialty Diagnoses / Procedures Referred By Contact Refer red To Contact Dermatology Referral ID Status Reason Start Date Expiration Date Visits Requ ested Visits Authorized [id number] Closed 01/20/2022 01/20/2023 1 1 Encounter Details Date Type Department Care Team Description 03/01/2022 Office Visit Department of [facility] Bethany Talamantes Keratos is Actinic (Primary Dx); Medicine, [place] APRN, C.N.PTong, [facility], [facility] [place] [address] [place] [phone] Social History Tobacco Use Types Packs/Day Years Used Date Smoking Tobacco: Never Smokeless Tobacco: Never Alcohol Use Standard Drinks/Week Comments Yes 7 (1 standard drink = 0.6 oz pure alcoho l) Sex Assigned at Date Recorded Not on file documented as of this encounter Progress Notes Bethany Talamantes APRN, C.N.P., M.S.N. - 03/01/2022 11:30 AM CDT SUBJECTIVE CHIEF COMPLAINT / REASON FOR VISIT Lesion (On face). HISTORY OF PRESENT ILLNESS Lorraine Caldwell is a 81 y.o. female who presents for evaluation of scaly lesions on her face. She reports that 1 of the lesions on her left cheek has been growing and becomes itchy and irritated. Per nursing notes: Chief Complaint (Reason for visit): lesions on face How long has lesion(s) been present, any symptoms (pain, bleeding, or itching)? : saw Bethany in 2019 she postponed on getting some AKs treated now back for follow up. Was patient referred, self referred, or a returning derm patient? : Self Any other skin concerns today? : No REVIEW OF SYSTEMS Constitutional, integumentary, and allergic/immunologic review of systems is negative except as otherwise remarked above or below. OBJECTIVE PHYSICAL EXAM General: Well-appearing female in no acute distress. Well groomed and dressed and answers appropriately to questions. Skin: I have examined the face, on the left lateral cheek there are 2 hyperkeratotic, stuck on appearing, light brown papules with mild inflammation consistent with seborrheic keratosis. On the left cheek, nose, and right cheek there are a total of 4 red scaly 3-4 mm papules consistent with actinic ker atoses. ASSESSMENT / PLAN #1 Keratosis Actinic x4 We discussed the pre malignant nature of lesions and after discussing risks, benefits, and alternatives of treatment patient consented to destruction with cryotherapy. These pre-malignant lesions were destroyed with liquid nitrogen cryotherapy today. Post care instructions provided to patient, and patient advised to follow-up if these areas fail to improve or worsen. #2 Keratosis Seborrheic Inflamed The benign nature of this lesion(s) was discussed with the patient. Given the inflamed nature of this lesion(s), its treatment is medically indicated. We treated a total of 2 lesion(s) with one 20-second freeze-thaw cycle of liquid nitrogen cryotherapy. The patient tolerated the procedure well. Aftercare instructions were provided in written and verbal form to the patient. Should any of these lesionsrecur, the patient should return for further evaluation. PATIENT EDUCATION Ready to learn, no apparent learning barriers were identified; learning preferences include listening. Explained diagnosis and treatment plan; patient expressed understanding of the content. This note represents shared documentation between the assisting nurse and the encounter provider. The content has been reviewed and edited as needed by the provider. documented in this encounter Plan of Treatment Not on filedocumented as of this encounter Visit Diagnoses Diagnosis Keratosis Actinic - Primary Keratosis Seborrheic Inflamed documented in this encounter Care Teams Doctor Of Audiology Relationship Specialty Start Date End Date Elsewhere, Pcp PCP - General Family Medicine 10/09/18 documented as of this encounter
--- OUTSIDE RECORDS SUMMARY | 2022-07-02 08:44 | XMS_ITS | Encounter Summary ---
:1940 Author Organization [facility] Address [address] [place] [address] Care Team Providers Name Role Phone Elsewhere, Pcp Primary Care Provider Unavailable Reason for Referral Outpatient (Routine) - Closed Specialty Diagnoses / Referred By Contact Referred To Contact Procedures Gastroenterology and Diagnoses Abdominal Pain Frieda Alfaro [facility] Hepatology Abbie Plunkett [address] [place] [address] Referral ID Status Reason Start Date Expiration Date Visits Requ ested Visits Authorized [id number] Closed 09/16/2020 09/16/2021 1 1 E MARK ATTORNEY Encounter Details Date Type Department Care Team Description 09/16/2020 [facility] Frieda Alfaro Abdominal Pain [facility] CLINICS Abbie Plunkett (Primary Dx) [address] [facility] [address] [place] [address] Social History Tobacco Use Types Packs/Day Years Used Date Smoking Tobacco: Never Assessed Sex Assigned at Date Recorded Not on file documented as of this encounter Plan of Treatment Scheduled Referrals Name Type Priority Associated Order Schedule Diagnoses Gastroenterology & Outpatient Routine Abdominal Pain Expecte d: Hepatology Referral Referral 09/16/20 20 (Approximate), Expires: 09/16/2023 documented as of this encounter Visit Diagnoses Diagnosis Abdominal Pain - Primary documented in this encounter Care Teams Architectural Associate Relationship Specialty Start Date End Date Elsewhere, Pcp PCP - General Family Medicine 10/09/18 documented as of this encounter
--- OUTSIDE RECORDS SUMMARY | 2022-07-02 08:45 | XMS_ITS | Encounter Summary ---
:1940 Author Organization [facility] Address [address] [place] [address] Care Team Providers Name Role Phone Frieda Alfaro Primary Care Provider Encounter Details Date Type Department Care Team Description 12/03/2021 Travel Social History Tobacco Use Types Packs/Day Years Used Date Smoking Tobacco: Never Assessed Sex Assigned at Date Recorded Not on file COVID-19 Exposure Response Date Recorded In the last month, have you been in contact with No / Unsure 12/03/2021 9:56 AM CDT someone who was confirmed or suspected to have Coronavirus / COVID-19? documented as of this encounter Plan of Treatment Not on filedocumented as of this encounter Visit Diagnoses Not on filedocumented in this encounter Care Teams Hat Body Sorter Relationship Specialty Start Date End Date Frieda Alfaro PCP - General Internal Medicine 11/19/20 [facility] [address] [place] [address] documented as of this encounter
--- OUTSIDE RECORDS SUMMARY | 2022-07-02 08:45 | XMS_ITS | Encounter Summary ---
:1940 Author Organization [facility] Address [address] [place] [address] Care Team Providers Name Role Phone Frieda Alfaro Primary Care Provider Encounter Details Date Type Department Care Team Description 11/25/2021 Travel Social History Tobacco Use Types Packs/Day Years Used Date Smoking Tobacco: Never Assessed Sex Assigned at Date Recorded Not on file COVID-19 Exposure Response Date Recorded In the last month, have you been in contact with No / Unsure 11/25/2021 10:23 AM MUSIC DEPARTMENT CHAIR someone who was confirmed or suspected to have Coronavirus / COVID-19? documented as of this encounter Plan of Treatment Not on filedocumented as of this encounter Visit Diagnoses Not on filedocumented in this encounter Care Teams Porcelain Enameling Supervisor Relationship Specialty Start Date End Date Frieda Alfaro PCP - General Internal Medicine 11/19/20 [facility] [address] [place] [address] documented as of this encounter
--- OUTSIDE RECORDS SUMMARY | 2022-07-02 08:45 | XMS_ITS | Clinical Summary ---
:1940 Author Organization [employer] [facility] [employer] [facility] [place] [address] Care Team Providers Name Role Phone Frieda Alfaro MD Primary Care Provider Allergies Active Allergy Reactions Severity Noted Date Comments Atorvastatin Rash 05/09/2007 Sulfa (Sulfonamide Antibiotics) 7 Tramadol 12/22/2007 Ezetimibe Rash 05/09/2007 Medications Medication Sig Dispensed Refills Start Date End Date Status POLICOSANOL 10 MG TAB 20mg daily 0 12/22/2007 Active FISH OIL 1,200 MG-144 0 12/22/2007 Active MG-216 MG CAP GREEN TEA CAP 600mg 0 12/22/2007 Activ e IBUPROFEN 600 MG TAB prn 0 12/22/2007 Active HYDROCHLOROTHIAZIDE 25 MG take one 90 0 11/14/2008 Active TAB tablet daily LEVOTHYROXINE 75 MCG TAB take one 90 0 11/14/2008 Active tablet by mouth daily Active Problems Problem Noted Date 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 2007 Pure hypercholesterolemia 12/22/2007 Atherosclerosis of renal artery 12/22/2007 Osteoarthrosis, unspecified whether generalized or loc alized, unspecified 12/22/2007 site Diverticulosis of colon (without mention of hemorrhage ) 12/22/2007 Herpes zoster without mention of complication 12/22/19 08 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 Malignant neoplasm of breast (female), unspecified sit e 04/12/2007 Immunizations Name Administration Dates Next Due AMB Influenza, IIV3 (Age >=3 years)(Flu Clinic Only) 008 Td (Age >=7 Years) 08/07/2003 Social History Tobacco Use Types Packs/Day Years Used Date Never Smoker Alcohol Use Standard Drinks/Week Comments Yes 4.2 (1 standard drink = 0.6 oz pure alco hol) Sex Assigned at Date Recorded Not on file Obstetrics History Last Filed Vital Signs Vital Sign Reading Time Taken Comments Blood Pressure 146/82 04/05/2013 11:26 AM CDT Pulse 68 04/05/2013 11:26 AM CDT Temperature - - Respiratory Rate 16 04/12/2007 10:05 AM CDT Oxygen Saturation - - Inhaled Oxygen Concentration - - Weight 87.5 kg (193 lb) 12/22/2007 8:11 AM CDT Height 165.1 cm (5' 5) 12/22/2007 8:11 AM CDT Body Mass Index 32.12 12/22/2007 8:11 AM CDT Plan of Treatment Health Maintenance Due Date Last Done Comments COVID-19 vaccine series (#1) 1940 Tdap 1952 Depression screening for age 12+ 1953 BMI (ht and wt on same day) for age 18+ 1959 Zoster (shingles) series for age 50+ (1 of 2) 1991 DEXA/DXA scan for age 65+ 2006 Pneumococcal series for age 65+ (1 - PCV) 2006 Tetanus booster 08/07/2013 08/07/2003 Influenza for age 65+ 05/20/2022 07/25/2008 Results Not on filefrom Last 3 Months Insurance Payer Benefit Plan / Subscriber ID Effective Dates Phone Addre ss Type Group MEDICARE PART B MEDICARE PART B [id number] 2006-Present ATTN: CLAIMS - HB USE ONLY HB ONLY [address] [place] [address] [place] [place] [id number] 2012-Present [address] [address] [place] [id number] Care Teams Pool Manager Relationship Specialty Start Date End Date Frieda Alfaro MD PCP - General Internal Medicine 04/03/13[address] [place] [address]
--- OUTSIDE RECORDS SUMMARY | 2022-07-02 08:45 | XMS_ITS | Clinical Summary ---
:1940 Author Organization [facility] Address [address] [place] [address] Care Team Providers Name Role Phone Frieda Alfaro Primary Care Provider Resolved Problems Problem Noted Date Resolved Date Dyssynergic defecation 11/25/2021 01/26/2022 Muscle weakness (generalized) 11/25/2021 01/26/2022 Slow transit constipation 11/25/2021 01/26/2022 Myalgia of pelvic floor 11/25/2021 01/26/2022 Social History Tobacco Use Types Packs/Day Years Used Date Smoking Tobacco: Never Assessed Sex Assigned at Date Recorded Not on file Plan of Treatment Health Maintenance Due Date Last Done Comments ADVANCE CARE PLANNING 1940 ANNUAL REVIEW OF HM ORDERS 1940 DEXA 1940 HEPATITIS B IMMUNIZATION (1 1940 of 3 - 3-dose series) FALL RISK ASSESSMENT 2006 MEDICARE ANNUAL WELLNESS 2006 VISIT COVID-19 Vaccine (4 - 08/01/2021 06/06/2021, 11/18/2020, Booster for Pfizer series) 10/28/2020 PHQ-2 (once per calendar 09/19/2021 year) INFLUENZA VACCINE (#1) 2022 06/16/2021, 06/13/2020, 07/09/2019, Additional history exists DTAP/TDAP/TD IMMUNIZATION 12/09/2030 12/09/2020, 12/16/2010 , (3 - Td or Tdap) 08/07/2003 Pneumococcal Vaccine: 65+ Completed 04/24/2018, 03/31/2015 , Years 01/13/2007 ZOSTER IMMUNIZATION Completed 07/26/2018, 04/24/2018, 02/06/2010 IPV IMMUNIZATION Aged Out No longer eligi ble based on patient 's age to complete this topic MENINGITIS IMMUNIZATION Aged Out No longe r eligible based on patient 's age to complete this topic Insurance Payer Benefit Plan / Subscriber ID Effective Dates Phone Addre ss Type Group MEDICARE MEDICARE [id number] 2021-Presen [phone] ATTN CLA IMS Medicare t 40 [address] [place] [address] BCBS BCBS [place] [id number] 2021-Presen [phone] [address] [address] PPO [address]UE [address] [place] [address] Care Teams Occupational Health And Safety Manager Relationship Specialty Start Date End Date Frieda Alfaro PCP - General Internal Medicine 11/19/20 [facility] [address] [place] [address]
--- OUTSIDE RECORDS SUMMARY | 2022-07-02 08:45 | XMS_ITS | Encounter Summary ---
:1940 Author Organization [facility] Address [facility] [place] [address] Care Team Providers Name Role Phone Frieda Alfaro Primary Care Provider Encounter Details Date Type Department Care Team Description 12/03[facility] Rehabilitation Services PT Muscle weakness (generalized); [place] [address] [address] Slow transit constipation; [address] [facility]. [place] [address] [phone] Social History Tobacco Use Types Packs/Day Years Used Date Smoking Tobacco: Never Assessed Sex Assigned at Date Recorded Not on file COVID-19 Exposure Response Date Recorded In the last month, have you been in contact with No / Unsure 12/03/2021 9:56 AM CDT someone who was confirmed or suspected to have Coronavirus / COVID-19? documented as of this encounter Progress Notes Ivette John, PT - 12/03/2021 10:00 AM CDT Subjective: HPI Physical Exam Objective: System Physical Exam General ROS Assessment/Plan: DISCHARGE REPORT Progress reporting period is from 11/25/2021 to 12/03/2021. SUBJECTIVE Subjective: Patient reports improved shape of stool and has not needed to strain to defecate in the past several days. She has been eating more fiber and drinking fluids. Some days with a lot of gas and has difficulty holding it back. Current Pain level: 0/10 Initial Pain level: 0/10 Changes in function: Yes, see goal flow sheet for change in function Adverse reactions: None; , Patient has failed to return to therapy so current objective findings are unknown. OBJECTIVE Objective: Significant improvement in tightness and tenderness in bilateral levator ani muscles. Added internal rectal release of puborectalis, with minial tightness noted ASSESSMENT/PLAN STG/LTGs have been met or progress has been made towards goals: Yes (See Goal flow sheet completed today.) Assessment of Progress: The patient's condition is improving. The patient's condition has potential to improve. Self Management Plans: Patient is independent in a home treatment program. Patient is independent in self management of symptoms. Lorraine continues to require the following intervention to meet STG and LTG's: PT intervention is no longer required to meet STG/LTG. Recommendations: This patient is ready to be discharged from therapy and continue their home treatment program. Please refer to the daily flowsheet for treatment today, total treatment time and time spent performing 1:1 timed codes. documented in this encounter Miscellaneous Notes Addendum Note - Ivette John PT - 12/03/2021 10:00 AM CDT Addended by: IVETTE JOHN on: 01/26/2022 12:11 PM Modules accepted: Orders documented in this encounter Plan of Treatment Not on filedocumented as of this encounter Procedures Procedure Name Priority Date/Time Associated Diagnosis Comme nts [place] THERAPEUTIC Routine 12/04/2021 9:54 AM Dyssynergic d efecation ACTIVITIES, EA 15 MIN CDT Muscle weakness (generalized) Slow transit constipation Myalgia of pelvic floor NH MANUAL THERAPY, EA Routine 12/04/2021 9:54 AM Dyssyne rgic defecation 15 MIN CDT Muscle weakness (generalized) Slow transit constipation Myalgia of pelvic floor documented in this encounter Visit Diagnoses Diagnosis Dyssynergic defecation Muscle weakness (generalized) Slow transit constipation Myalgia of pelvic floor documented in this encounter Care Teams Shelter Advocate Relationship Specialty Start Date End Date Frieda Alfaro PCP - General Internal Medicine 11/19/[address] [address] (work) documented as of this encounter
--- OUTSIDE RECORDS SUMMARY | 2022-07-02 08:45 | XMS_ITS | Encounter Summary ---
:1940 Author Organization [facility] Address [address] [place] [address] Care Team Providers Name Role Phone Frieda Alfaro Primary Care Provider Encounter Details Date Type Department Care Team Description 11/17/2021 Transcribe Orders GENERIC EXTERNAL DATA Frieda Alfaro DEPARTMENT [facility] [address] [place] [address] (Wo rk) Social History Tobacco Use Types Packs/Day Years Used Date Smoking Tobacco: Never Assessed Sex Assigned at Date Recorded Not on file documented as of this encounter Plan of Treatment Not on filedocumented as of this encounter Visit Diagnoses Not on filedocumented in this encounter Care Teams Public Address Systems Mechanic Relationship Specialty Start Date End Date Frieda Alfaro PCP - General Internal Medicine 11/19/20 [facility] [address] [place] [address] documented as of this encounter
--- OUTSIDE RECORDS SUMMARY | 2022-07-02 08:45 | XMS_ITS | Encounter Summary ---
:1940 Author Organization [place] Address [facility] [place] [address] Care Team Providers Name Role Phone Frieda Alfaro Primary Care Provider Encounter Details Date Type Department Care Team Description 11/25/2021 Therapy Visit M [facility] Ivette John Dyss ynergic defecation; Rehabilitation Services PT Muscle weakness (generalized); [place] [address] [address] Slow transit constipation; [address] [facility]. [place] [address] [phone] Social History Tobacco Use Types Packs/Day Years Used Date Smoking Tobacco: Never Assessed Sex Assigned at Date Recorded Not on file COVID-19 Exposure Response Date Recorded In the last month, have you been in contact with No / Unsure 11/25/2021 10:23 AM JUNIOR SYSTEMS ANALYST someone who was confirmed or suspected to have Coronavirus / COVID-19? documented as of this encounter Progress Notes Ivette John, PT - 11/25/2021 10:40 AM CST Physical Therapy Initial Evaluation Subjective: Patient Health History Lorraine Caldwell being seen for Pelvic floor dysfunction. Date of Onset: 2 years ago. Problem occurred: unknown Pain is reported as 0/10 on pain scale. Pertinent medical history includes: cancer, high blood pressure and implanted device. Red flags: Changes in bowel and bladder habits. Other medical allergies details: Lipitor, Zetia, Sulfa. Surgeries include: Cancer surgery and orthopedic surgery. Other surgery history details: 2 mastectomies, one shoulder and 2 knee replacements. Current medications: High blood pressure medication and thyroid medication. Other medications details: hydrochlorothizine, lexinopril, calcium with D, synthroid, aromicin. 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 Therapist Generated HPI Evaluation Problem details: Patient has chief complaint of dyssynergic defecation which started insidiously about 2 years ago. She has long history of constipation, but started to have soft, narrow bowel movements 4x/day and increased rectal pressure at that time. She had a significant amount of stress, with 's illness and subsequent last fall. She also complains of bloating and abdominal pressure in right lower quadrant.She tries to eat a diet high in fiber which has helped firm and shape stools.No bladder issues. Recent colonoscopy at [facility] was normal. Defography showed dyssynergic defecation. Medical history: appendectomy, 4 pregnancies (2 living children:one , one vaginal), mastectomy at age 48; second mastectomy at age 77; bilateral TKA's; right TSA. Type of problem: Pelvic dysfunction (dyssynergic defecation). This is a chronic condition. Condition occurred with: Insidious onset. Symptoms are exacerbated by stress Barriers include: None as reported by patient. Objective: System Pelvic Dysfunction Evaluation: Bladder/Pelvic Problems: Strain to defecate, constipation Diagnostic Tests: Colonoscopy: Normal Defacography: Dyssynergic defecation Abdominal Wall: Trigger Points: Transverse abdominals, internal obliques and external obliques Scar Mobility: Moderate restrictions lower abdomen, R>L Pelvic Clock Exam: Ischiocavernosis pain: - Bulbocavernosis pain: - Transverse Perineal: - Levator ANI: - Perineal Body: - Reflex Testing: normal External Assessment: Skin Condition: Atrophic Bearing Down/Coughing: Normal Tissue Symmetry: Normal Muscle Contraction/Perineal Mobility: Elevation and urogential triangle descent Internal Assessment: Internal assessment pelvic: 4/5 pelvic floor strength; moderate tightness in puborectalis muscle; Moderate tightness bilateral levator ani mm,L>R but nontender. Sensory Exam: Normal Contraction/Grade: Good squeeze, good hold with lift, repeatable (4) SEMG Biofeedback: NA General ROS Assessment/Plan: Patient is a 81 year old female with pelvic complaints. Patient has the following significant findings with corresponding treatment plan. Diagnosis 1: Pelvic floor dysfunction Decreased ROM/flexibility - manual therapy, therapeutic exercise and home program Decreased strength - therapeutic exercise, therapeutic activities and home program Impaired muscle performance - biofeedback and neuro re-education Decreased function - therapeutic activities and home program Therapy Evaluation Codes: 1) History comprised of: Personal factors that impact the plan of care: None. Comorbidity factors that impact the plan of care are: None. Medications impacting care: None. 2) Examination of Body Systems comprised of: Body structures and functions that impact the plan of care: Pelvis. Activity limitations that impact the plan of care are: dyssynergic defecation. 3) Clinical presentation characteristics are: Stable/Uncomplicated. 4) Decision-Making Low complexity using standardized patient assessment instrument and/or measureable assessment of functional outcome. Cumulative Therapy Evaluation is: Low complexity. Previous and current functional limitations: (See Goal Flow Sheet for this information) Short term and ripshear operator goals: (See Goal Flow Sheet for this information) Communication ability: Patient appears to be able to clearly communicate and understand verbal and written communication and follow directions correctly. Treatment Explanation - The following has been discussed with the patient: RX ordered/plan of care Anticipated outcomes Possible risks and side effects This patient would benefit from PT intervention to resume normal activities. Rehab potential is excellent. Frequency: 1 X week, once daily Duration: for 12 weeks Discharge Plan: Achieve all LTG. Independent in home treatment program. Reach maximal therapeutic benefit. Please refer to the daily flowsheet for treatment today, total treatment time and time spent performing 1:1 timed codes. OR SYSTEMS ANALYST Ivette John PT - 11/25/2021 10:40 AM CST Images from the original note were not included. [facility] OUTPATIENT Physical Therapy ORTHOPEDIC EVALUATION PLAN OF TREATMENT FOR OUTPATIENT REHABILITATION (COMPLETE FOR INITIAL CLAIMS ONLY) Patient's Last Name, First Name, M.I. Date of : 1940 Lorraine Caldwell Provider???s Name: [facility] Start of Care Date: 11/25/21 Onset Date: 11/25/21 ( orders) Type: _X__PT ___OT Medical Diagnosis: Encounter Diagnoses Name Primary? Dyssynergic defecation ??? Muscle weakness (generalized) ??? Slow transit constipation ??? Myalgia of pelvic floor Treatment Diagnosis: dyssynergic defecation Goals: 11/25/21 0700 Muscle Awareness or Isolation Previous Functional Level Normal bowel movement with complete evacuation Current Functional Level Is unable to isolate pelvic muscles STG Target Performance Improved isolation of muscles Rationale work toward normal voiding or evacuation patterns to focus on ADLS, work, or school Due Date 12/16/21 LTG Target Performance Able to isolate muscles Rationale work toward normal voiding or evacuation patterns to focus on ADLS, work, or school Due Date 02/22/22 Constipation/Obstructive Defecation Previous Functional Level Normal voiding habits at home, work, or school Current Functional Level (difficulty initiating BMs) STG Target Performance (Improved initiation of bowel movements) Rationale Work toward normal voiding or evacuation patterns to focus on ADLS, work, or school Due Date 12/23/21 LTG Target Performance (Good initiation of bowel movements) Rationale Work toward normal voiding or evacuation patterns to focus on ADLS, work, or school Due Date 02/22/22 Therapy Frequency: 1x/week Predicted Duration of Therapy Intervention: 12 weeks Ivette John, PT I CERTIFY THE NEED FOR THESE SERVICES FURNISHED UNDER THIS PLAN OF TREATMENT AND WHILE UNDER MY CARE . Physician Signature Date X Certification Date From: 11/25/21 Certification Date To: 02/22/22 Referring Provider: Frieda Alfaro Initial Assessment See Epic Evaluation SOC Date: 11/25/21 OR SYSTEMS ANALYST documented in this encounter Plan of Treatment Not on filedocumented as of this encounter Procedures Procedure Name Priority Date/Time Associated Diagnosis Comme nts [place] SELF CARE MANAGEMENT Routine 11/25/2021 1:16 PM Dyssy nergic defecation TRAINING, EA 15 MIN JUNIOR SYSTEMS ANALYST Muscle weakness (generalized) Slow transit constipation Myalgia of pelvic floor [place] MANUAL THERAPY, EA Routine 11/25/2021 1:16 PM Dyssyne rgic defecation 15 MIN JUNIOR SYSTEMS ANALYST Muscle weakness (generalized) Slow transit constipation Myalgia of pelvic floor [place] THERAPEUTIC Routine 11/25/2021 1:16 PM Dyssynergic d efecation EXERCISES. EA 15 MIN JUNIOR SYSTEMS ANALYST Muscle weakness (generalized) Slow transit constipation Myalgia of pelvic floor documented in this encounter Visit Diagnoses Diagnosis Dyssynergic defecation Muscle weakness (generalized) Slow transit constipation Myalgia of pelvic floor documented in this encounter Care Teams Bicycle Subassembler Relationship Specialty Start Date End Date Frieda Alfaro PCP - General Internal Medicine 11/19/20 [facility] [address] [place] [address] documented as of this encounter
== END 2022-07-02 08:41 | disposition home or self-care (01) ==
LOC: NFLDREF 08:42
PROVIDERS: PCP Internal Medicine; Visit Provider Family Medicine
DX: R30.0 Dysuria (principal); N39.0 Urinary tract infection, site not specified
CPT/HCPCS: 87086; 87186

== ENCOUNTER 2022-09-28 12:52 | Outpatient (CLI) | payer MEDICARE, BC, SELFPAY ==
[2022-09-28 11:00] LABS: Chloride* 97 mmol/L (96-114)
[2022-09-28 11:01] LABS: Potassium* 4.6 mmol/L (3.6-5.1); Sodium* 131 mmol/L (135-149)
[2022-09-28 11:03] LABS: Cholesterol* 232 mg/dL (90-199); Creatinine* 0.7 mg/dL (0.5-1.5); Estimated Glomerular Filt Rate 87 ml/min
[2022-09-28 11:04] LABS: Blood Urea Nitrogen* 17 mg/dL (7-30); Calcium* 9.6 mg/dL (8.4-10.6); Carbon Dioxide* 28 mmol/L (20-32); Glucose* 84 mg/dL (60-115); HDL Cholesterol* 104 mg/dL (>=50); LDL Cholesterol Calculated 115 mg/dL (<100); Triglycerides* 66 mg/dL (40-149)
== END 2022-09-28 12:53 | disposition home or self-care (01) ==
PROVIDERS: PCP Internal Medicine; Visit Provider Internal Medicine
DX: I10 Essential (primary) hypertension (principal); E03.9 Hypothyroidism, unspecified; Z13.6 Encounter for screening for cardiovascular disorders
CPT/HCPCS: 80048; 80061; 84443

== ENCOUNTER 2022-12-29 14:01 | Outpatient (CLI) | payer MEDICARE, BC, SELFPAY | END 2022-12-29 14:02 | disposition home or self-care (01) | LOC: AMB 12-30 11:44 | PROVIDERS: PCP Internal Medicine; Visit Provider Family Medicine | DX: R55 Syncope and collapse (principal); R42 Dizziness and giddiness | CPT/HCPCS: A0425; A0427 ==

== ENCOUNTER 2022-12-29 14:34 | Emergency (ER) | payer MEDICARE, BC, SELFPAY ==
[2022-12-29 14:52] VITALS: BP 121/53; PULSE 72; RESP 16; TEMP 37.2; O2SAT 95; BMI 25.4
--- NOTE | 2022-12-29 15:09 | ED_ITS ---
HPI - General Adult General Time Seen by Provider: 15:09 Date Seen: 12/29/22 Chief complaint: Hypotension Stated complaint: Syncopal Time Seen by Provider: 12/29/22 15:00 Source: patient, EMS and RN notes reviewed Mode of arrival: EMS Limitations: no limitations History of Present Illness HPI narrative: Patient was brought in by EMS after syncopal episode at the [place] where she was visiting her 's grave. Patient states she woke up this morning, ate breakfast, had a V8 and half cup of coffee. Went to the [employer] and was sorting books. She did drink some water out of her yeti. She had half a sandwich and some milk at lunch. She proceeded to walk 1.2 miles up to the cemetery where her is buried. She states it was quite warm out for her. She had to stop and rest a couple times she was getting tired. When she got up to the top of the hill to get to the cemetery, started feeling woozy. The director instructional material happened to be up there and came to her. He assisted her down and she reportedly did black out. She knew that she was feeling faint and woozy. At no time did she have any chest pain or shortness of breath. She had no sense of any arrhythmia. She feels she was dehydrated and it was warm out. Today is 1 of the warmer days so far this season, she states that about 80? outside. She attempted to sit up after this episode and felt really woozy, he called 911. Her blood pressure was systolic in the 70s. She did get 250 mL normal saline and blood pressure improved. Her glucose was fine, please see nurse's note. She is feeling fine now. Episode happened about 2:00 p.m. today. Related Data Home Medications Medication Instructions Recorded Confirmed calcium carbonate 600 mg-vitamin 1 tab PO DAILY 06/29/22 12/29/22 D3 1,000 unit-vitamin K2 90 mcg tab lysine 1,000 mg tablet 1,000 mg PO .As Needed PRN 10/05/22 12/29/22 vit C 250 mg-E 90 mg-zinc 40 1 tab PO QAM AND QPM 10/05/22 12/29/22 mg-copper 1 by-lvumhk-fepboi chew tablet (PreserVision AREDS-2) diphenhydramine-acetaminophen 1 tab PO HS 12/29/22 12/29/22 Previous Rx's Medication Instructions Recorded hydrochlorothiazide 25 mg tablet 25 mg PO QDAY #90 tabs 10/05/22 levothyroxine 50 mcg tablet 50 mcg PO QDAY #90 tabs 10/05/22 lisinopril 5 mg tablet 5 mg PO QDAY #90 tabs 10/05/22 Allergies Allergy/AdvReac Type Severity Reaction Status Date / Time ezetimibe Allergy Severe Hives Verified 12/29/22 18:21 celecoxib Allergy Unknown Rash Verified 12/29/22 18:21 hydroxyzine Allergy Unknown Confusion Verified 12/29/22 18:21 tramadol [From Ultram] Allergy Unknown Verified 12/29/22 18:21 atorvastatin [From Lipitor] AdvReac Intermediate Verified 12/29/22 18:21 Sulfa (Sulfonamide AdvReac Intermediate Rash Verified 12/29/22 18:21 Antibiotics) Review of Systems Status of ROS: Reports: 10 or more systems reviewed and unremarkable except as noted in History and below PFSH PFS Medical History History of atrial fibrillation ?Z86.79 - Personal history of other diseases of the circulatory system (ICD- 10) Surgical History History of appendectomy ?Z90.49 - Acquired absence of other specified parts of digestive tract (ICD- 10) History of arthroscopy of right knee ?Z98.890 - Other specified postprocedural states (ICD-10) History of bilateral mastectomy ?Z90.13 - Acquired absence of bilateral breasts and nipples (ICD-10) History of cataract surgery ?Z98.49 - Cataract extraction status, unspecified eye (ICD-10) History of section ?Z98.891 - History of uterine scar from previous surgery (ICD-10) History of hysteroscopy ?Z98.890 - Other specified postprocedural states (ICD-10) History of partial thyroidectomy ?E89.0 - Postprocedural hypothyroidism (ICD-10) History of suburethral sling procedure ?Z98.890 - Other specified postprocedural states (ICD-10) History of thyroidectomy ?E89.0 - Postprocedural hypothyroidism (ICD-10) History of total knee replacement ?Z96.659 - Presence of unspecified artificial knee joint (ICD-10) History of total shoulder replacement ?Z96.619 - Presence of unspecified artificial shoulder joint (ICD-10) History of tubal ligation ?Z98.51 - Tubal ligation status (ICD-10) Family History Brother Colonic polyp Social History Smoking Status: Never smoker Do you use any of these nicotine containing products: None Second hand tobacco smoke exposure: No How often do you have a drink containing alcohol: never How often do you have six or more drinks on one occasion: Never AUDIT-C Alcohol total score: 0 Non-prescribed substance use: denies use Little interest or pleasure in doing things: several days Feeling down, depressed, or hopeless: not at all service: No Exam Const: Vital Signs, click to edit/add: Vital Signs - 24 hr 12/29/22 14:52 12/29/22 15:27 12/29/22 15:58 Temperature 98.9 F Pulse Rate [Pulse Oximeter] 72 Pulse Rate [orthos tatic lying] 65 Pulse Rate [orthos tatic sitting] 67 Pulse Rate [orthos tatic standing] 71 Respiratory Rate 16 Blood Pressure [Le ft Upper Arm] 121/53 L Blood Pressure [or thostatic lying] 120/51 L Blood Pressure [or thostatic sitting] 123/56 L Blood Pressure [or thostatic standing ] 118/60 Pulse Oximetry 95 98 Oxygen Delivery Me thod Room Air 12/29/22 16:23 12/29/22 18:24 Temperature 98.0 F Pulse Rate [Pulse Oximeter] 64 71 Pulse Rate [orthos tatic lying] Pulse Rate [orthos tatic sitting] Pulse Rate [orthos tatic standing] Respiratory Rate 16 14 Blood Pressure [Le ft Upper Arm] 120/58 L 134/66 Blood Pressure [or thostatic lying] Blood Pressure [or thostatic sitting] Blood Pressure [or thostatic standing ] Pulse Oximetry 98 98 Oxygen Delivery Me thod Room Air Room Air Documenting provider has reviewed patient's vital signs: yes Common normals: no apparent distress, oriented x3, no limitations, healthy appearing, alert and well nourished General appearance: cooperative, comfortable, well kempt and well developed Nutritional appearance: thin HENMT: Common normals: normocephalic, head/scalp atraumatic, hearing grossly normal bilaterally, external ears normal, external nose normal, nasal mucous membranes and turbinates normal, moist oral mucous membranes, oropharynx normal, dentition normal and gingiva normal Head and scalp: normocephalic and a traumatic Nose: external nose normal and nasal mucous membranes and turbinates normal External ear: external ears normal Eye: Common normals: PERRL, EOMs intact bilaterally, conjunctivae normal and no scleral icterus Conjunctiva: conjunctiva(e) normal Pupil: PERRL Neck & C-Spine: Common normals: full ROM, no lymphadenopathy, supple, no meningeal signs and no JVD Other: Scar along the anterior neck presumably from thyroidectomy. Chest: Common normals: inspection of chest normal and palpation of chest normal Resp: Common normals: normal respiratory effort, no retractions, no use of accessory muscles and clear to auscultation bilaterally Auscultation: clear to auscultation bilaterally Other: Sits up easily, mild kyphosis noted Cardio: Common normals: no JVD, regular rate, regular rhythm, S1 normal heart sound, S2 normal heart sound, no gallops, no clicks, no murmurs and no rub Rate: regular rate Rhythm: regular rhythm Heart sounds: S1 normal and S2 normal GI: Common normals: Normal to inspection, nondistended, normoactive bowel sounds present, soft to palpation, non-tender, no hepatosplenomegaly and no masses Palpation: soft and no hepatosplenomegaly Extremity: Common normals: normal to inspection, no calf tenderness and no pedal edema Neuro: Common normals: oriented x3, CN's II-XII intact bilaterally, moves all extremities, no focal motor deficits and no sensory deficits noted Se nsorium/orientation: alert Meningeal signs: no meningeal signs Speech: speech normal Psych: Appearance: well kempt Course Course Hospital Course: Patient will be on cardiac monitoring and pulse oximetry. She does have a history of remote episode of atrial fibrillation. From the time EMS was monitoring her to now, no evidence of any arrhythmia but potential does exist. Did discuss need to consider ischemic disease. Will also be doing a D-dimer. I do not see a head CT is necessary here, she has no neurologic deficits. Presumably this may be vasovagal syncope. Will get appropriate labs, portable chest x-ray. Reevaluation(s) Reevaluation #1: Reviewed with patient that her D-dimer is just ever so slightly elevated at 0.83. We discussed the indication for this elevated test, she does agree to proceed with chest CT PE protocol. If she had enough thromboembolic burden to cause syncope for a PE, we definitely think we would see significant evidence on the chest CT. We are still awaiting her chemistries, I did call and ask lab about this. Patient is feeling fine. She was not orthostatic. Time: 17:31 Vital Signs Vital signs: Initial Vital Signs Temperature 98.9 F 12/29/22 14:52 Temperature Source Temporal Artery Scan 12/29/22 14:52 Pulse Rate 72 12/29/22 14:52 Respiratory Rate 16 12/29/22 14:52 Blood Pressure 121/53 L 12/29/22 14:52 Blood Pressure Mean 75 12/29/22 14:52 Blood Pressure Position Sitting 12/29/22 14:52 Pulse Oximetry 95 12/29/22 14:52 Oxygen Delivery Method Room Air 12/29/22 14:52 Vital Signs Temperature 98.9 F 12/29/22 14:52 Pulse Rate 72 12/29/22 14:52 Respiratory Rate 16 12/29/22 14:52 Blood Pressure 121/53 L 12/29/22 14:52 Pulse Oximetry 95 12/29/22 14:52 Oxygen Delivery Method Room Air 12/29/22 14:52 Temperature 98.0 F 12/29/22 16:23 Pulse Rate 71 12/29/22 18:24 Respiratory Rate 14 12/29/22 18:24 Blood Pressure 134/66 12/29/22 18:24 Pulse Oximetry 98 12/29/22 18:24 Oxygen Delivery Method Room Air 12/29/22 18:24 Medical Decision Making Lab Data Lab results reviewed: Yes I reviewed the patient's lab results Labs: Lab Results 12/29/22 12/29/22 Range/Units 15:27 17:04 WBC 4.28 L (4.50-11.00) K/uL RBC 4.23 (4.00-5.20) m/uL Hgb 13.5 (12.0-16.0) gm/dL Hct 39.7 (33.0-51.0) % MCV 94 (80-100) fL MCH 32 (26-34) pg MCHC 34 (32-36) gm/dL RDW Coeff of Dominga 12.3 (11.5-15.5) % Plt Count 157 (140-440) K/uL Neut % (Auto) 71.2 (42.0-72.0) % Lymph % (Auto) 19.6 L (20-44) % Kenton % (Auto) 8.2 (0.0-11.0) % Eos % (Auto) 0.5 (0.0-7.0) % Baso % (Auto) 0.5 (0.0-3.0) % Neut # (Auto) 3.00 (1.7-7.0) K/uL Lymph # (Auto) 0.80 L (0.90-2.90) K/uL Kenton # (Auto) 0.40 (0.00-0.90) K/UL Eos # (Auto) 0.00 (0.00-0.50) K/uL Baso # (Auto) 0.00 (0.00-0.30) K/uL D-Dimer Quant (PE/DVT) 0.83 H (0.00-0.50) ug/ml Sodium 131 L (135-149) mmol/L Potassium 3.9 (3.6-5.1) mmol/L Chloride 99 (96-114) mmol/L Carbon Dioxide 26 (20-32) mmol/L BUN 19 (7-30) mg/dL Creatinine 0.8 (0.5-1.5) mg/dL Estimated Creat Clear 34.90 Estimated GFR 74 ml/min Glucose 133 H (60-115) mg/dL Lactate 1.7 (0.5-1.9) mmol/L Calcium 8.6 (8.4-10.6) mg/dL Magnesium 1.9 (1.5-2.6) mg/dL Total Bilirubin 0.5 (0.1-1.5) mg/dL AST 27 (12-35) U/L ALT 21 (4-35) U/L Alkaline Phosphatase 65 (40-150) U/L NT-Pro-B Natriuret Pep 338 pg/mL Total Protein 5.9 L (6.0-8.3) g/dL Albumin 3.6 (3.3-5.0) g/dL POC Troponin I 0.00 L 0.00 L (0.01-0.04) ng/ml Imaging Data Chest x-ray: Attestation: I have reviewed the pertinent imaging results. My impression: I see no acute pathology on my preliminary review. Radiologist's impression: Patient: LINA QUIGLEY Facility:?[facility] Patient ID:?[id number] Site Patient ID:?[id number]. Site :?1940 Study:?XRay Chest PORTABLE-12/29/2022 3:50:24 PM Ordering Physician:?Mi Link Final Report: INDICATION: Syncope. TECHNIQUE: Chest 1 view. COMPARISON: Chest radiograph 03/02/2019. FINDINGS: No focal consolidation, pleural effusion, or pneumothorax. Normal heart size and pulmonary vascularity. Partially visualized right shoulder arthroplasty. Degenerative changes of the left glenohumeral joint. IMPRESSION: No acute cardiopulmonary findings. Dictated by Tiffanie Miller MD @ 12/29/2022 4:09:33 PM (Electronic Signature) CT scan - chest: Attestation: I have reviewed the pertinent imaging results. Radiologist's impression: Patient: LINA QUIGLEY Facility:?[facility] Patient ID:?[id number] Site Patient ID:?[id number]. Site :?1940 Study:?CT Chest Angio w/ 95cc Isovue-370 PE Protocol-12/29/2022 6:21:08 PM Ordering Physician:?Mi Link Final Report: HISTORY: Syncope and elevated D-dimer. Comparison : Chest x-ray 12/29/2022. TECHNIQUE: Axial images were obtained through the chest following 95 cc of Isovue-370 intravenous contrast. FINDINGS: Adequate bolus of contrast. No evidence for pulmonary embolism. The lungs are clear. No pleural or pericardial effusion. No thoracic lymphadenopathy. Hepatic and renal cysts. The adrenal glands are normal. Right shoulder arthroplasty. Thyroid goiter. IMPRESSION: No evidence for pulmonary embolism. Please note that all CT scans at this facility use dose modulation, iterative reconstruction, and/or weight-based dosing when appropriate to reduce radiation dose to as low as reasonably achievable. Dictated by Roxanne Moscoso MD @ 12/29/2022 7:17:49 PM (Electronic Signature) ECG Data Attestation: I personally reviewed and interpreted this ECG as follows: (Sinus rhythm, 69 beats per minute. Flipped T-wave without any ST segment changes aVL otherwise no acute abnormality noted. QT corrected 409 milliseconds. She does have biphasic P-wave in lead V1.) Prior ECG tracings: not available for review Interpretation: EKG timed 449 is showing normal sinus rhythm, 71 beats per minute. No significant change from prior. QT corrected 419 milliseconds. Biphasic P wave in V1. Discharge Plan Discharge Clinical Impression: Syncope Patient Disposition: Home, Self-Care Condition: Stable Instructions: Syncope (ED) Additional Instructions: Recommend hydrating more through these hot days and slowing or decreasing your physical activity. Schedule a follow-up in clinic with your primary care provider within the next week for re-evaluation. If you have any further episodes of syncope, do need to return for further evaluation. Activity Level: Activity as Tolerated Prescriptions: No Action PreserVision AREDS-2 250-90-40-1 mg tablet,chewable 1 tab PO QAM AND QPM lysine 1,000 mg tablet 1,000 mg PO .As Needed PRN Rx Instructions: PRN cold sore lisinopril 5 mg tablet 5 mg PO QDAY Qty: 90 3RF levothyroxine 50 mcg tablet 50 mcg PO QDAY Qty: 90 3RF hydrochlorothiazide 25 mg tablet 25 mg PO QDAY Qty: 90 3RF calcium carb-vitamin D3-vit K2 600 mg-1,000 unit-90 mcg tablet 1 tab PO DAILY diphenhydramine-acetaminophen [Tylenol PM Extra Strength] 1 tab PO HS Follow Up/Referrals: Frieda Alfaro MD [Primary Care Provider] - Stand Alone Forms: [facility] Info Instructions
--- NOTE | 2022-12-29 15:24 | CRLHL7_ITS ---
For Patients: As a result of the Cures Act, medical imaging exams and procedure reports are released immediately into your electronic medical record. You may view this report before your referring provider. If you have questions, please contact your health care provider. INDICATION: Syncope. TECHNIQUE: Chest 1 view. COMPARISON: Chest radiograph 03/02/2019. FINDINGS: No focal consolidation, pleural effusion, or pneumothorax. Normal heart size and pulmonary vascularity. Partially visualized right shoulder arthroplasty. Degenerative changes of the left glenohumeral joint. IMPRESSION: No acute cardiopulmonary findings. Dictated by Tiffanie Miller MD @ 12/29/2022 4:09:33 PM (Electronically Signed)
[2022-12-29 15:27] VITALS: O2SAT 98
[2022-12-29 15:51] LABS: Basophils Percent Auto 0.5 % (0.0-3.0); Eosinophils Percent Auto 0.5 % (0.0-7.0); Hematocrit 39.7 % (33.0-51.0); Hemoglobin* 13.5 gm/dL (12.0-16.0); Lymphocytes Percent Auto 19.6 % (20-44); Mean Corpuscular HGB Conc 34 gm/dL (32-36); Mean Corpuscular Hemoglobin 32 pg (26-34); Mean Corpuscular Volume 94 fL (80-100); Monocytes Percent Auto 8.2 % (0.0-11.0); Neutrophils Percent Auto 71.2 % (42.0-72.0); Platelet Count* 157 K/uL (140-440); RDW Coefficient of Variation % 12.3 % (11.5-15.5); Red Blood Count 4.23 m/uL (4.00-5.20); White Blood Count* 4.28 K/uL (4.50-11.00)
[2022-12-29 15:54] LABS: Slide Review Reflex No
[2022-12-29 15:58] VITALS: BP 118/60; BP 120/51; BP 123/56; PULSE 65; PULSE 67; PULSE 71
[2022-12-29 16:14] LABS: D Dimer Quantitative* 0.83 ug/ml (0.00-0.50)
[2022-12-29 16:23] VITALS: BP 120/58; PULSE 64; RESP 16; TEMP 36.7; O2SAT 98
--- NOTE | 2022-12-29 16:40 | PC.NURSE ---
lab called to verify labs still pending.
[2022-12-29 16:55] LABS: Lactate* 1.7 mmol/L (0.5-1.9)
[2022-12-29 17:24] LABS: Albumin* 3.6 g/dL (3.3-5.0); Chloride* 99 mmol/L (96-114); Potassium* 3.9 mmol/L (3.6-5.1); Sodium* 131 mmol/L (135-149)
[2022-12-29 17:26] LABS: Creatinine* 0.8 mg/dL (0.5-1.5); Estimated Glomerular Filt Rate 74 ml/min
[2022-12-29 17:27] LABS: Alanine Aminotransferase* 21 U/L (4-35); Alkaline Phosphatase* 65 U/L (40-150); Aspartate Amino Transferase* 27 U/L (12-35); Bilirubin Total* 0.5 mg/dL (0.1-1.5); Blood Urea Nitrogen* 19 mg/dL (7-30); Carbon Dioxide* 26 mmol/L (20-32); Glucose* 133 mg/dL (60-115); Total Protein* 5.9 g/dL (6.0-8.3)
[2022-12-29 17:28] LABS: Calcium* 8.6 mg/dL (8.4-10.6); Magnesium* 1.9 mg/dL (1.5-2.6)
--- NOTE | 2022-12-29 17:32 | CRLHL7_ITS ---
For Patients: As a result of the Century Cures Act, medical imaging exams and procedure reports are released immediately into your electronic medical record. You may view this report before your referring provider. If you have questions, please contact your health care provider. HISTORY: Syncope and elevated D-dimer. Comparison : Chest x-ray 12/29/2022. TECHNIQUE: Axial images were obtained through the chest following 95 cc of Isovue-370 intravenous contrast. FINDINGS: Adequate bolus of contrast. No evidence for pulmonary embolism. The lungs are clear. No pleural or pericardial effusion. No thoracic lymphadenopathy. Hepatic and renal cysts. The adrenal glands are normal. Right shoulder arthroplasty. Thyroid goiter. IMPRESSION: No evidence for pulmonary embolism. Please note that all CT scans at this facility use dose modulation, iterative reconstruction, and/or weight-based dosing when appropriate to reduce radiation dose to as low as reasonably achievable. Dictated by Roxanne Moscoso MD @ 12/29/2022 7:17:49 PM (Electronically Signed)
[2022-12-29 17:37] LABS: NT Pro B Type NatriureticPept* 338 pg/mL
--- NOTE | 2022-12-29 17:57 | PC.NURSE ---
to ct via wheelchair. daughter in law in room
[2022-12-29 18:24] VITALS: BP 134/66; PULSE 71; RESP 14; O2SAT 98
== END 2022-12-29 19:41 | disposition home or self-care (01) ==
PROVIDERS: Emergency Provider Family Medicine; PCP Internal Medicine
DX: R55 Syncope and collapse (principal)
CPT/HCPCS: 36415; 71045; 71260; 80053; 83605; 83735; 83880; 84484; 85025; 85379; 93005; 94761; 99284; 99285; Q9967

== ENCOUNTER 2023-04-27 13:27 | Outpatient (CLI) | payer MEDICARE, BC, SELFPAY | END 2023-04-27 13:28 | disposition home or self-care (01) | LOC: AMB 04-28 09:26 | PROVIDERS: PCP Internal Medicine; Visit Provider Family Medicine | DX: T14.90XA Injury, unspecified, initial encounter (principal); V43.52XA Car driver injured in collision with other type car in traffic accident, initial encounter; Y92.410 Unspecified street and highway as the place of occurrence of the external cause | CPT/HCPCS: A0998 ==

== ENCOUNTER 2023-11-04 08:22 | Outpatient (CLI) | payer MEDICARE, BC, SELFPAY ==
--- OUTSIDE RECORDS SUMMARY | 2023-11-04 20:37 | XMS_ITS | Referral Summary ---
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 Muscle weakness (generalized) 11/25/2021 01/26/2022 Slow transit constipation 11/25/2021 Myalgia of pelvic floor 11/25/202101/17 Social History Tobacco Use Types Packs/Day Years Used Date Smoking Tobacco: Never Assessed Adolescent Education Answer Date Record ed Getting School Help Needed Not on file 06/11 Sex and Gender Information Value Date Recorded Sex Assigned at Not on file Gender Identity Not on file Sexual Orientation Not on file Plan of Treatment Not on file Care Teams Rubber Washer Relationship Specialty Start Date End Date Frieda Alfaro MD [facility] [address] [place] [address] PCP - General Internal Medicine 11/19/20
--- OUTSIDE RECORDS SUMMARY | 2023-11-04 20:37 | XMS_ITS | Encounter Summary ---
Author Name Unknown Organization [facility] Address [address] [place] [address] Care Team Providers Care Network Support Manager Name Role Phone Frieda Alfaro MD Primary Care Provider + [phone] Encounter Details Date Type Department Care Team ([facility] st Contact Info) Description 06/09/2023 9:40 AM CDT Therapy Visit [facility] [address] [address] Frieda Alfaro MD [facility] [address] [place] [address] Rosibel Brown, PT [facility] [address] [place] [address] [address] [place], [place] [id number] Pelvic floor dysfunction (Primary Dx) Social History Tobacco Use Types Packs/Day Years Used Date Smoking Tobacco: Never Assessed Sex and Gender Information Value Date Recorded Sex Assigned at Not on file Gender Identity Not on file Sexual Orientation Not on file COVID-19 Exposure Response Date Recorded In the last 10 days, have yo u been in contact with someone who was confirmed or suspected to have Coronavirus/COVID-19? No / Unsure 06/02/2023 9:36 AM CDT documented as of this encounter Plan of Treatment Not on file documented as of this encounter Visit Diagnoses Diagnosis Pelvic floor dysfunction- Primary Pelvic muscle wasting documented in this encounter Care Teams Network Support Manager Relationship Specialty Start Date End Date Frieda Alfaro MD [facility] [address] [place] [address] PCP - General Internal Medicine 11/19/20 documented as of this encounter
--- OUTSIDE RECORDS SUMMARY | 2023-11-04 20:37 | XMS_ITS | Encounter Summary ---
Author Name Unknown Organization [facility] Address [address] [place] [address] Care Team Providers Care Dairy Technician Name Role Phone Frieda Alfaro MD Primary Care Provider [phone] Encounter Details Date Type Department Care Team (Latest Contact Info) Description 06/02/2023 Travel Social History Tobacco Use Types Packs/Day [...] documented as of this encounter Visit Diagnoses Not on filedocumented in this encounter Care Teams Dairy Technician Relationship Specialty Start Date End Date Frieda Alfaro MD [facility] - [address] [address] PCP - General Internal Medicine 11/19/20 documented as of this encounter
--- OUTSIDE RECORDS SUMMARY | 2023-11-04 20:37 | XMS_ITS | Encounter Summary ---
Author Name Unknown Organization [facility] Address [address] [place] [address] Care Team Providers Care Farmworker Cranberry Name Role Phone Frieda Alfaro MD Primary Care Provider + [phone] Reason for Referral * Rehab Therapy Physical Therapy (Routine) - Pending Review Specialty Diagnoses / Procedures Referred By Contthao t Referred To Contact Diagnoses Other specified disorders of muscle Pelvic floor dysfunction Frieda Alfaro MD [facility] - [address] [address] Referral ID Status Reason Start Date Expiration Date V isits Requested Visits Authorized Pending Review 03/16/2023 03/15/2024 1 1 Question Answer Preferred Location: [facility] Scheduling Instructions: If you have not heard from the scheduling office within 2 business days, please call [phone] for [employer], for Range and [phone] for [place]. Course of Action Evaluation and Treatment Adult or Pediatrics Adult Specialty Services: Pelvic Health Pelvic Health: Other My Clinical Question Is: pelvic floor dysfunction Comments Please be aware that coverage of these services is subject to the terms and limitations of your health insurance plan. Call member services at your health plan with any benefit or coverage questions. If you have not heard from the scheduling office within 2 business days, please call [phone] for [employer], for Range and [phone] for [place]. Encounter Details Date Type Department Care Team (Late st Contact Info) Description 03/16/2023 Transcribe Orders GENERIC EXTERNAL DATA DEPARTMENT Frieda Alfaro MD [facility] [address] [place] [address] Other specified disorders of muscle (Primary Dx); Pelvic floor dysfunction Social History Tobacco Use Types Packs/Day Years Used Date Smoking Tobacco: Never Assessed Sex and Gender Information Value Date Recorded Sex Assigned at Not on file Gender Identity Not on file Sexual Orientation Not on file documented as of this encounter Plan of Treatment Scheduled Referrals Name Type Priority Associated Diagnoses Orde r Schedule Physical Therapy Referral Referral Routine Other specified disorders of muscle Pelvic floor dysfunction Ordered: 03/16/2023 documented as of this encounter Visit Diagnoses Diagnosis Other specified disorders of muscle- Primary Pelvic floor dysfunction Pelvic muscle wasting documented in this encounter Care Teams Farmworker Cranberry Relationship Specialty Start Date End Date Frieda Alfaro MD [facility] [address] [place] [address] PCP - General Internal Medicine 11/19/20 documented as of this encounter
--- OUTSIDE RECORDS SUMMARY | 2023-11-04 20:37 | XMS_ITS | Encounter Summary ---
Author Name Unknown Organization [facility] Address [address] [place] [address] Care Team Providers Care Manager Perioperative Name Role Phone Frieda Alfaro MD Primary Care Provider [phone] Encounter Details Date Type Department Care Team (Latest Contact Info) Description 06/29/2023 11:00 AM CDT Therapy Visit [facility] [address] [place] [address] Rosibel Brown, PT [facility] [address] [place] [id number] Pelvic floor dysfunction (Primary Dx) Social History [...] suspected to have Coronavirus/COVID-19? No / Unsure 06/22/2023 10:29 AM CDT documented as of this encounter Plan of Treatment Not on file documented as of this encounter Visit Diagnoses Diagnosis Pelvic floor dysfunction- Primary Pelvic muscle wasting documented in this encounter Care Teams Manager Perioperative Relationship Specialty Start Date End Date Frieda Alfaro MD [facility] [address] [place] [address] PCP - General Internal Medicine 11/19/20 documented as of this encounter
--- OUTSIDE RECORDS SUMMARY | 2023-11-04 20:37 | XMS_ITS | Encounter Summary ---
Author Name Unknown Organization [place] Address [address] [place] [address] Care Team Providers Care Plater Apprentice Name Role Phone Frieda Alfaro MD Primary Care Provider [phone] Encounter Details Date Type Department Care Team (Latest Contact Info) Description 07/14/2023 Travel Social History Tobacco Use Types Packs/Day [...] on filedocumented in this encounter Care Teams Plater Apprentice Relationship Specialty Start Date End Date Frieda Alfaro MD [address] [address] PCP - General Internal Medicine 11/19/20 documented as of this encounter
--- OUTSIDE RECORDS SUMMARY | 2023-11-04 20:37 | XMS_ITS | Encounter Summary ---
Author Name Unknown Organization [facility] Address [address] [place] [address] Care Team Providers Care Radiation Oncologist Name Role Phone Frieda Alfaro MD Primary Care Provider + [phone] Encounter Details Date Type Department Care Team (Latest Contact Info) Description 07/14/2023 12:30 PM CDT Therapy Visit [facility] [address] [place] [address] Rosibel Brown, PT [facility] [address] [place] [phone] Pelvic floor dysfunction (Primary Dx) Social History [...] AM CDT documented as of this encounter Progress Notes * Rosibel Brown, PT - 08/26/2023 10:39 AM CST DISCHARGE Reason for Discharge: Patient has failed to schedule further appointments. Equipment Issued: none Discharge Plan: Patient to continue home program. Referring Provider: Frieda Alfaro 07/14/23 0500 Appointment Info Signing clinician's name / credentials Rosibel Brown PT Total/Authorized Visits PT E&T 8 Visits Used 6 Medical Diagnosis pelvic floor dysfunction PT Tx Diagnosis increased pelvic floor tone Quick Adds Pelvic Consent;Certification Progress Note/Certification Start of Care Date 05/26/23 Onset of illness/injury or Date of Surgery 03/16/23 (MD visit) Therapy Frequency once per week Predicted Duration 8 weeks Certification date from 05/26/23 Certification date to 08/04/23 Progress Note Completed Date 05/26/23 PT Goal 1 Goal Identifier bowel movements Goal Description improve bowel movement diameter and regularity to at least once per day, normal diameter stools Rationale to maximize safety and independence with performance of ADLs and functional tasks Goal Progress normal size stools but every other day Target Date 07/21/23 Subjective Report Subjective Report pt reports things are going well for her, thinks this may be her last visit. Having less stress at home, taking daily benefiber. Not having daily bowel movements but goes every other day and feels like shes emptying, feeling good. Objective Measures Objective Measures Objective Measure 1 Objective Measure 1 Objective Measure pelvic floor tension Details tension in L>R LA and OI, resolved with MFR . Reviewed mechanics of defecation Treatment Interventions (PT) Interventions Therapeutic Procedure/Exercise;Manual Therapy;Self Care/Home Management Therapeutic Procedure/Exercise PTRx Ther Proc 1 90/90 Position PTRx Ther Proc 1 - Details HEP PTRx Ther Proc 2 Double Knee to Chest PTRx Ther Proc 2 - Details HEP PTRx Ther Proc 3 Seated Piriformis Stretch PTRx Ther Proc 3 - Details HEP PTRx Ther Proc 4 Bridging #1 PTRx Ther Proc 4 - Details HEP Therapeutic Activity PTRx Ther Act 1 Diaphragmatic Breathing PTRx Ther Act 1 - Details educated on sending air down into pelvic floor to reduce tension reviwed today Manual Therapy Manual Therapy: Mobilization, MFR, MLD, friction massage minutes (97472) 15 Manual Therapy 1 MFR Manual Therapy 1 - Details to internal pelvic floor at LA and OI L>R Skilled Intervention cues for breathing to reduce tension Patient Response/Progress improved tension and discomfort after treatment Self Care/home Management ADL/Home Mgmt Training (15707) 25 Self Care Self Care 5 Self Care 1 defecation mechanics Self Care 1 - Details educated on belly big belly hard and bearing down with exhale, pt reports improved sensation in rectal area with this, reviewed today Self Care 5 - Details educated on returning to exercises if and when issues with bowels return, discussed fiber usage and ocassional laxatives if needed. Education Learner/Method Patient Plan Home program printed HEP Plan for next session progress internal MFR vaginally > rectally (L>R), assess pelvic strength, clamshell ex? Comments Pelvic Health Informed Consent Statement Discussed with patient/guardian reason for referral regarding pelvic health needs and external/internal pelvic floor muscle examination. Opportunity provided to ask questions and verbal consent for assessment and intervention was given. Total Session Time Timed Code Treatment Minutes 40 Total Treatment Time (sum of timed and untimed services) 40 SIVE SAWYER documented in this encounter Plan of Treatment Not on file documented as of this encounter Visit Diagnoses Diagnosis Pelvic floor dysfunction- Primary Pelvic muscle wasting documented in this encounter Care Teams Radiation Oncologist Relationship Specialty Start Date End Date Frieda Alfaro MD [facility] [address] [address] PCP - General Internal Medicine 11/19/20 documented as of this encounter
--- OUTSIDE RECORDS SUMMARY | 2023-11-04 20:37 | XMS_ITS | Encounter Summary ---
Author Name Unknown Organization [facility] Address [address] [place] [address] Care Team Providers Care Residential Substance Abuse Counselor Name Role Phone Frieda Alfaro MD Primary Care Provider + [phone] Reason for Visit * Rehab Therapy Physical Therapy (Routine) - Pending Review Specialty Diagnoses / Procedures Referred By Contthao t Referred To Contact Diagnoses Other specified disorders of muscle Pelvic floor dysfunction Frieda Alfaro MD [facility] [address] [place] [address] Referral ID Status Reason Start Date Expiration Date V isits Requested Visits Authorized Pending Review 03/16/2023 03/15/2024 1 1 Encounter Details Date Type Department Care Team (Late st Contact Info) Description 05/26/2023 9:40 AM CDT Therapy Visit [facility] [address] [phone] Frieda Alfaro MD [facility] [address] [place] [address] Rosibel Brown, PT [facility] [address] [place] [address] [address] [place], [place] [address] Pelvic floor dysfunction (Primary Dx) Social History Tobacco Use Types Packs/Day Years Used Date Smoking Tobacco: Never Assessed Sex and Gender Information Value Date Recorded Sex Assigned at Not on file Gender Identity Not on file Sexual Orientation Not on file documented as of this encounter Progress Notes * Rosibel Brown, PT - 05/26/2023 9:40 AM CDT PHYSICAL THERAPY EVALUATION Type of Visit: Evaluation See electronic medical record for Abuse and Falls Screening details. Subjective Pt reports history of bowel problems and irregularity. Pt came to Pelvic PT in 2021 for a few visits and it was helpful for her, improved her diet and down trained her pelvic floor. Pt currently having some stool that is normal diameter and some that are too narrow. Generally having bowel movements every other day. Only feeling sensation to have BM in lower rectum. Occasionally straining for bowel movement. Sometimes has some fecal incontinence, smearing after bowel movements. Uses ducolax sometimes when traveling Presenting condition or subjective complaint: pelvic floor dysfunction Date of onset: 03/16/23 (MD visit) Relevant medical history: Arthritis; Cancer; Implanted device Dates & types of surgery: appencectomy, D&C, thyroid surgery, , tubal ligation, 2 mastectomies Prior diagnostic imaging/testing results: Other conlonoscopy Prior therapy history for the same diagnosis, illness or injury: Yes Pelvic PT in 2021 Living Environment Social support: Alone Type of home: 1 level Stairs to enter the home: No Ramp: No Stairs inside the home: No Help at home: None Equipment owned: 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 Hobbies/Interests: golf, walking, gardening, reading, volunteering Patient goals for therapy: have normal bowel movements Pain assessment: Pain denied Objective PELVIC EVALUATION ADDITIONAL HISTORY: Sex assigned at : Female Gender identity: Female Pronouns: Bladder History: Feels bladder filling: No Triggers for feeling of inability to wait to go to the bathroom: No How long can you wait to urinate: 2-3 hours Gets up at night to urinate: No Can stop the flow of urine when urinating: No Volume of urine usually released: Average Other issues: Number of bladder infections in last 12 months: Fluid intake per day: 30 16 Medications taken for bladder: No Activities causing urine leak: Amount of urine typically leaked: Pads used to help with leaking: Bowel History: Frequency of bowel movement: daily Consistency of stool: Soft-formed Ignores the urge to defecate: No Other bowel issues: Loss of gas; Straining to have bowel movement Length of time spent trying to have a bowel movement: Sexual Function History: Sexual orientation: Straight Sexually active: No Lubrication used: Pelvic pain: Rectal exams Pain or difficulty with orgasms/erection/ejaculation: No State of menopause: Post-menopause (I am done with menopause) Hormone medications: No Are you currently : No, Number of previous pregnancies: 4, Number of deliveries: 3, Do you get regular exercise: Yes, I do this type of exercise: walking daily 1-3 miles, Have you tried pelvic floor strengthening exercises for 4 weeks: Yes (2 years ago) Discussed reason for referral regarding pelvic health needs and external/internal pelvic floor muscle examination with patient/guardian. Opportunity provided to ask questions and verbal consent for assessment and intervention was given. LUMBAR SCREEN: AROM WNL HIP SCREEN: Strength: WNL PELVIC/SI SCREEN: BREATHING SYMMETRY: needs cues for diaphragmatic breathing PELVIC EXAM External Visual Inspection: At rest: Normal With voluntary pelvic floor contraction: Present Relaxation of PFM: Yes Integumentary: Introitus: Unremarkable Anal: Hemorrhoids External Digital Palpation per Perineum: Ischiocavernosis: Unremarkable Bulbo cavernosis: Unremarkable Transverse perineal: Unremarkable Internal Digital Palpation: Per Vagina: Tenderness Tone: high Per Rectum: Tenderness Tone: high ABDOMINAL ASSESSMENT Diastasis Rectus Abdominis (JEFFREY): JEFFREY presence: No Assessment & Plan CLINICAL IMPRESSIONS Medical Diagnosis: pelvic floor dysfunction Treatment Diagnosis: increased pelvic floor tone Impression/Assessment: Patient is a 83 year old female with bowel complaints. The following significant findings have been identified: Decreased ROM/flexibility and Impaired muscle performance. Theseimpairments interfere with their ability to perform self care tasks as compared to previous level of function. Clinical Decision Making (Complexity): Clinical Presentation: Stable/Uncomplicated Clinical Presentation Rationale: based on medical and personal factors listed in PT evaluation Clinical Decision Making (Complexity): Low complexity PLAN OF CARE Treatment Interventions: Modalities: Biofeedback Interventions: Manual Therapy, Neuromuscular Re-education, Therapeutic Activity, Therapeutic Exercise Risk Management Consultant Goals PT Goal 1 Goal Identifier: bowel movements Goal Description: improve bowel movement diameter and regularity to at least once per day, normal diamter stools Rationale: to maximize safety and independence with performance of ADLs and functional tasks Target Date: 07/21/23 Frequency of Treatment: once per week Duration of Treatment: 8 weeks Recommended Referrals to Other Professionals: N/A Education Assessment: Learner/Method: Patient Risks and benefits of evaluation/treatment have been explained. Patient/Family/caregiver agrees with Plan of Care. Evaluation Time: PT Darrion Pena Minutes (99137): 15 Signing Clinician: MOHIT Dhillon [facility] OUTPATIENT PHYSICAL THERAPY PLAN OF TREATMENT FOR OUTPATIENT REHABILITATION Patient's Last Name, First Name, Lorraine Baig Date of : 1940 Provider's Name [facility] Onset Date: 03/16/23 (MD visit) Start of Care Date: 05/26/23 Medical Diagnosis: pelvic floor dysfunction PT Treatment Diagnosis: increased pelvic floor tone Plan of Treatment Frequency/Duration: once per week/ 8 weeks Certification date from 05/26/23 to 08/04/23 See note for plan of treatment details and functional goals Rosibel Brown, MOHIT I CERTIFY THE NEED FOR THESE SERVICES FURNISHED UNDER THIS PLAN OF TREATMENT AND WHILE UNDER MY CARE . Physician Signature Date X Referring Provider: Frieda Alfaro Initial Assessment See Epic Evaluation- Start of Care Date: 05/26/23 documented in this encounter Plan of Treatment Scheduled Referrals Name Type Priority Associated Diagnoses Orde r Schedule Physical Therapy Referral Referral Routine Other specified disorders of muscle Pelvic floor dysfunction Ordered: 03/16/2023 documented as of this encounter Visit Diagnoses Diagnosis Pelvic floor dysfunction- Primary Pelvic muscle wasting documented in this encounter Care Teams Residential Substance Abuse Counselor Relationship Specialty Start Date End Date Frieda Alfaro MD [facility] - [address] [address] PCP - General Internal Medicine 11/19/20 documented as of this encounter
--- OUTSIDE RECORDS SUMMARY | 2023-11-04 20:37 | XMS_ITS | Encounter Summary ---
Author Name Unknown Organization [facility] Address [address] [place] [address] Care Team Providers Care Vehicle Window Tinter Name Role Phone Frieda Alfaro MD Primary Care Provider [phone] Encounter Details Date Type Department Care Team (Latest Contact Info) Description 06/22/2023 Travel Social History Tobacco Use Types Packs/Day [...] on filedocumented in this encounter Care Teams Vehicle Window Tinter Relationship Specialty Start Date End Date Frieda Alfaro MD [address] [address] PCP - General Internal Medicine 11/19/20 documented as of this encounter
--- OUTSIDE RECORDS SUMMARY | 2023-11-04 20:37 | XMS_ITS | Encounter Summary ---
Author Name Unknown Organization [facility] Address [address] [place] [address] Care Team Providers Care Floor Sanding Machine Operator Name Role Phone Frieda Alfaro MD Primary Care Provider [phone] Encounter Details Date Type Department Care Team (Latest Contact Info) Description 06/22/2023 10:20 AM CDT Therapy Visit [facility] [address] [place] [address] Rosibel Brown, PT [facility] [address] [place] [phone] Pelvic floor dysfunction (Primary Dx) Social History [...] wasting documented in this encounter Care Teams Floor Sanding Machine Operator Relationship Specialty Start Date End Date Frieda Alfaro MD [facility] [address] [place] [address] PCP - General Internal Medicine 11/19/20 documented as of this encounter
--- OUTSIDE RECORDS SUMMARY | 2023-11-04 20:37 | XMS_ITS | Encounter Summary ---
Author Name Unknown Organization [facility] Address [address] [place] [address] Care Team Providers Care Collection Teller Name Role Phone Frieda Alfaro MD Primary Care Provider + [phone] Encounter Details Date Type Department Care Team ([facility] st Contact Info) Description 06/02/2023 9:40 AM CDT Therapy Visit [facility] [address] [phone] Frieda Alfaro MD [facility] [address] [place] [address] Rosibel Brown, PT [facility] [address] [place] [address] [address] [place], [place] [address] Pelvic floor dysfunction (Primary Dx) Social History [...] wasting documented in this encounter Care Teams Collection Teller Relationship Specialty Start Date End Date Frieda Alfaro MD [facility] [address] [place] [address] PCP - General Internal Medicine 11/19/20 documented as of this encounter
--- OUTSIDE RECORDS SUMMARY | 2023-11-04 20:37 | XMS_ITS | Clinical Summary ---
Author Name Unknown Organization [facility] Address [address] [place] [address] Care Team Providers Care Events Intern Name Role Phone Frieda Alfaro MD Primary Care Provider Resolved Problems Problem Noted Date Diagnosed Date [...] Orientation Not on file Plan of Treatment Health Maintenance Due Date Last Done Comments ADVANCE CARE PLANNING 1940 ANNUAL REVIEW OF HM ORDERS 1940 DEXA 1940 RSV VACCINE ( & 60+) (1 - 1-dose 60+ series) 2001 FALL RISK ASSESSMENT 2006 MEDICARE ANNUAL WELLNESS VISIT 2006 PHQ-2 (once per calendar year) 2023 DTAP/TDAP/TD IMMUNIZATION (3 - Td or Tdap) 12/09/2030 12/09/2020, 12/16/2010, 08/07/2003 Pneumococcal Vaccine: 65+ Years Completed 04/24/2018, 03/31/2015, 01/13/2007 ZOSTER IMMUNIZATION Completed 07/26/2018, 04/24/2018, 02/06/2010 COVID-19 Vaccine Completed 06/10/2023, , 06/12/2022, Additional history exists INFLUENZA VACCINE Completed 06/10/2023, , 06/16/2021, Additional history exists HPV IMMUNIZATION Aged Out No longer e ligible based on patient's age to complete this topic IPV IMMUNIZATION Aged Out No longer e ligible based on patient's age to complete this topic MENINGITIS IMMUNIZATION Aged Out No l onger eligible based on patient's age to complete this topic RSV MONOCLONAL ANTIBODY Aged Out No l onger eligible based on patient's age to complete this topic Care Teams Events Intern Relationship Specialty Start Date End Date Frieda Alfaro MD [facility] [address] [place], [place] [id number] PCP - General Internal Medicine 11/19/20
--- OUTSIDE RECORDS SUMMARY | 2023-11-04 20:37 | XMS_ITS | Encounter Summary ---
Author Name Unknown Organization [facility] Address [address] [place] [address]. [place] [address] Care Team Providers Care Central Supply Worker Name Role Phone Frieda Alfaro MD Primary Care Provider [phone] Encounter Details Date Type Department Care Team (Late st Contact Info) Description 03/07/2023 Medical Correspondence [facility] [address] [place] [phone] Outside, Provider Social History Tobacco Use Types Packs/Day Years Used Date Smoking Tobacco: Never Assessed Sex and Gender Information Value Date Recorded Sex Assigned at Not on file Gender Identity Not on file Sexual Orientation Not on file documented as of this encounter Plan of Treatment Not on file documented as of this encounter Visit Diagnoses Not on filedocumented in this encounter Care Teams Central Supply Worker Relationship Specialty Start Date End Date Frieda Alfaro MD [facility] [address] [address] PCP - General Internal Medicine 11/19/20 documented as of this encounter
--- OUTSIDE RECORDS SUMMARY | 2023-11-04 20:38 | XMS_ITS | Encounter Summary ---
Author Name Unknown Organization [facility] Address [address] [place] [address] Care Team Providers Care Letterer Name Role Phone Elsewhere, Pcp Primary Care Provider Unavailabl e Encounter Details Date Type Department Care Team (Late st Contact Info) Description 01/19/2007 Historical Ophthalmology [facility] [place] [address] Social History Tobacco Use Types Packs/Day Years Used Date Smoking Tobacco: Never Assessed Sex and Gender Information Value Date Recorded Sex Assigned at Not on file Gender Identity Not on file Sexual Orientation Not on file documented as of this encounter Progress Notes * Ian Roy M.D. - 01/19/2007 8:12 AM CDT Eye General CHIEF COMPLAINT ? 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 No diplopia. She had pain in august and Septemberbut no eye pain now. Red and dry eyes. Genteal will help with the dry eyes. 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 On synthroid now Eyes: last year thought she had allergies, then in 07-25 had some discomfort OU. Was on cortisone drops during Sep which helped. Now does not have FBS, mild photophobia, no tearing, no pain/pressure,no diplopia. biggest concern is am I developing graves?. Goal today is definitive Dx. Overall course is ??? IMPRESSION / REPORT / PLAN #1 [...] ophthalmopathy #2 chronic blepharitis #3 right trochleitis CDM Reports - EYEGEN Id: [id number] Status: Fnl documented in this encounter Plan of Treatment Not on file documented as of this encounter Visit Diagnoses Not on filedocumented in this encounter Care Teams Letterer Relationship Specialty Start Date End Date Elsewhere, Pcp PCP - General Family Medicine 10/09/18 documented as of this encounter
--- OUTSIDE RECORDS SUMMARY | 2023-11-04 20:38 | XMS_ITS | Clinical Summary ---
Author Name Unknown Organization [facility] Address [address] [place] [address] Care Team Providers Care Cost Accounting Clerk Name Role Phone Elsewhere, Pcp Primary Care Provider Unavailabl e Source Comments Patient records contain information from all sites at [facility]. For routine questions regarding patient records, call [phone] during business hours, M-F 8:00 AM - 5:00 PM Central Time. Record requests for emergency care only can be directed to [phone] at any time.[facility] Allergies Active Allergy Reactions Criticality Noted Date Comments Atorvastatin Hives (Reselect Reaction) 01/20/20 07 Ezetimibe Hives (Reselect Reaction) 01/19/2007 Hydroxyzine Hallucinations 03/14/2018 Sulfa (Sulfonamide Antibiotics) Hives (Reselect Reaction) 01/19/2007 Tramadol Hives (Reselect Reaction) 01/19/2007 Medications Medication Sig Dispensed Refills Start Date End Date Status hydroCHLOROthiazide (HYDRODIURIL) 25 mg tablet 2 10/02/2018 Active levothyroxine (SYNTHROID, LEVOTHROID) 50 mcg tablet 2 08/21/2018 Active vitamins A,C,Z-xydl-sczxrr (ICAPS AREDS) 14,320 Units-226 mg-200 Units per capsule Take 2 capsules by mouth daily. 0 Active calcium carbonate-vitamin D3 1,250 mg (500 mg calcium)-200 unit per tablet Take 1 tablet by mouth daily with breakfast. 0 Active exemestane (AROMASIN) 25 mg tablet T1T DAILY 90 tablet 0 12/19/2019 Active lisinopriL (PRINIVIL,ZESTRIL) 10 mg tablet Take 10 mg by mouth daily. 0 Active terbinafine (LamISIL) 250 mg tablet Take 1 tablet (250 mg total) by mouth daily. 84 tablet 0 06/10/2023 Active Immunizations Name Administration Dates Next Due influenza high dose (65 years or older) (PF) Social History Tobacco Use Types Packs/Day Years Used Date Smoking Tobacco: Never Smokeless Tobacco: Never Alcohol Use Standard Drinks/Week Comments Yes 7 (1 standard drink = 0.6 oz pur e alcohol) Nutrition Answer Date Recorded Nutrition: EVOO Fat Source Unknown 11/07 Nutrition: Servings of Fruits/Vegetables per Day Not on file 11/07/2020 Dental Answer Date Recorded Dental: Regular Dentist Unknown 11/07/19 21 Sex and Gender Information Value Date Recorded Sex Assigned at Not on file Gender Identity Not on file Sexual Orientation Not on file Last Filed Vital Signs Vital Sign Reading Time Taken Comments Blood Pressure 129/55 11/13/2020 3:15 PM ACCOUNTING MANAGER CONTROLLER Pulse 60 11/13/2020 3:15 PM ACCOUNTING MANAGER CONTROLLER Temperature 36.3 ??C (97.3 ??F) 11/13/2020 3:09 PM CS T Respiratory Rate 9 11/13/2020 3:15 PM ACCOUNTING MANAGER CONTROLLER Oxygen Saturation 99% 11/13/2020 3:15 PM ACCOUNTING MANAGER CONTROLLER Inhaled Oxygen Concentration - - Weight 74.4 kg (164 lb 0.4 oz) 11/13/2020 12:22 PM ACCOUNTING MANAGER CONTROLLER Height 165.6 cm (5' 5.2) 11/13/2020 12:22 PM CS T Body Mass Index 27.13 11/13/2020 12:22 PM ACCOUNTING MANAGER CONTROLLER Plan of Treatment Health Maintenance Due Date Last Done Comments Thyroid Stimulating Hormone (TSH) test for thyroid function 1941 Creatinine Level (Kidney Fun ction Test) 11/10/2021 11/10/2020 Potassium Level 11/10/2021 11/10/2020 Sodium Level 11/10/2021 11/10/2020 Depression Screening (Annual PHQ-2) 09/19/2023 Fall Risk Screen (Annual) 09/19/2023 DTaP,Tdap,and Td Vaccines (3 - Td or Tdap) 12/09/2030 12/09/2020, 12/16/2010, 08/07/2003 Pneumococcal vaccine (65+ years) Completed 04/24/2018, 03/31/2015, 01/13/2007 Zoster Vaccines Completed 07/26/2018, 02/2018, 02/06/2010 Colonoscopy Discontinued 11/13/2020, 11/13/2020 Colorectal Cancer Surveillance Discontinued COVID-19 Vaccine Completed 06/10/2023, , 06/12/2022, Additional history exists Influenza Vaccine Completed 06/10/2023, , 06/16/2021, Additional history exists CT Colonography Discontinued Cologuard Discontinued Medical Devices Implanted Type Area [employer] Professor Device Identifier Shelf Expiration Date Model / Serial / Lot Knee Implant Knee Implant Bilateral : Knee Advance Directives For more information, please contact: [phone] Documents on File Type Date Recorded Patient Tunnel Elastic Operator Lockstitch Expl anation Advance Directives 11/29/2006 12:00 AM Leg acy document. See document viewer. Care Teams Cost Accounting Clerk Relationship Specialty Start Date End Date Elsewhere, Pcp PCP - General Family Medicine 10/09/18
--- OUTSIDE RECORDS SUMMARY | 2023-11-04 20:38 | XMS_ITS | Encounter Summary ---
Author Name Unknown Organization [facility] Address [address] [place] [address] Care Team Providers Care It Programmer Analyst Name Role Phone Elsewhere, Pcp Primary Care Provider Unavailabl e Encounter Details Date Type Department Care Team (Latest Contact Info) Description 06/07/2023 3:56 PM CDT - 06/07/2023 11:59 PM CDT Hospital Encounter Department of Laboratory Medicine in [place], [place] [address] [address] Bethany Talamantes APRN, C.N.P. [address] [address] High Risk Medication Discharge Disposition: Home or Self Care Social History Tobacco Use Types Packs/Day Years [...] Start Date End Date calcium carbonate-vitamin D3 1,250 mg (500 mg calcium)-200 unit per tablet Take 1 tablet by mouth daily with breakfast. 0 exemestane (AROMASIN) 25 mg tablet T1T DAILY 90 tablet 0 12/19/2019 hydroCHLOROthiazide (HYDRODIURIL) 25 mg tablet 2 10/02/2018 levothyroxine (SYNTHROID, LEVOTHROID) 50 mcg tablet 2 08/21/2018 lisinopriL (PRINIVIL,ZESTRIL) 10 mg tablet Take 10 mg by mouth daily. 0 vitamins A,C,J-cybv-qdedgb (ICAPS AREDS) 14,320 Units-226 mg-200 Units per capsule Take 2 capsules by mouth daily. 0 documented as of this encounter Plan of Treatment Not on file documented as of this encounter Procedures Procedure Name Priority Date/Time Associated Diagnosis Comments ALANINE AMINOTRANSFERASE (ALT), S/P Routine 06/07/2023 4:47 PM CDT High Risk Medication ASPARTATE AMINOTRANSFERASE (AST), S/P Routine 06/07/2023 4:47 PM CDT High Risk Medication documented in this encounter Results * AST (Aspartate Aminotransferase) (06/07/2023 4:47 PM CDT) Aspartate Aminotransferase (AST), P 21 8 - 43 U/L 06/07/2023 5:12 PM CDT OWAT Blood (Blood, Venous) 06/07/2023 4:47 PM CDT 06/07/2023 4:49 PM CDT Bethany Talamantes APRN, C.N.P. LAB BLOOD ADD-ON Performing Organization Address City/[facility]/ZIP Co de Phone Number [facility] [address] [place] [address], [facility] OWAT [facility] [place] [address] [place] [address] * ALT (Alanine Aminotransferase) (06/07/2023 4:47 PM CDT) Alanine Aminotransferase (ALT), P 16 7 - 45 U/L 06/07/2023 5:12 PM CDT OWAT Blood (Blood, Venous) 06/07/2023 4:47 PM CDT 06/07/2023 4:49 PM CDT Bethany Talamantes APRN, C.N.P. LAB BLOOD ADD-ON [facility] [address] [place] [address], [place] OW[place] [facility] in [place] [address] [place] [address] documented in this encounter Visit Diagnoses Diagnosis High Risk Medication documented in this encounter Care Teams It Programmer Analyst Relationship Specialty Start Date End Date Elsewhere, Pcp PCP - General Family Medicine 10/09/18 documented as of this encounter
--- OUTSIDE RECORDS SUMMARY | 2023-11-04 20:38 | XMS_ITS | Clinical Summary ---
Author Name Unknown Organization [facility] Address [place], [place] [address] Care Team Providers Care Steno Typist Name Role Phone Freida Alfaro MD Primary Care Provider [phone] Allergies Active Allergy Reactions Criticality Noted Date Comments Atorvastatin Rash 05/09/2007 Sulfa (Sulfonamide Antibiotics) 03/20 Tramadol 12/22/2007 Ezetimibe Rash 05/09/2007 Medications Medication Sig Dispensed Refills Start Date End Date Status POLICOSANOL 10 MG TAB 20mg daily 0 12/22/2007 Act cecilia FISH OIL 1,200 MG-144 MG-216 MG CAP 0 12/22/2007 Active GREEN TEA CAP 600mg 0 12/22/2007 Active IBUPROFEN 600 MG TAB prn 0 12/22/2007 Acti ve HYDROCHLOROTHIAZIDE 25 MG TAB take one tablet daily 90 0 11/14/2008 Active LEVOTHYROXINE 75 MCG TAB take one tablet by mouth daily 90 0 11/14/2008 Active Active Problems Problem Noted Date Diagnosed Date 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 12/22/2007 Pure hypercholesterolemia 12/22/2007 Atherosclerosis of renal artery 12/22/2007 Osteoarthrosis, unspecified whether generalized or localized, unspecified site 12/22/2007 Diverticulosis of colon (without mention of hemo rrhage) 12/22/2007 Herpes zoster without mention of complication 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 Malignant neoplasm of breast (female), unspecifi ed site 04/12/2007 Immunizations Name Administration Dates Next Due AMB Influenza, IIV3 (Age >=3 years)(Flu Clinic O [facility]) 07/25/2008 Td (Age >=7 Years) 08/07/2003 Social History Tobacco Use Types Packs/Day Years Used Date Smoking Tobacco: Never Alcohol Use Standard Drinks/Week Comments Yes 4.2 (1 standard drink = 0.6 oz p ure alcohol) Sex and Gender Information Value Date Recorded Sex Assigned at Not on file Gender Identity Not on file Sexual Orientation Not on file Obstetrics History Last Filed [...] series for age 50+ (1 of 2) 04/21/19 91 DEXA/DXA scan for age 65+ 2006 Pneumococcal series for age 65+ (1 of 1 - PCV) 006 Tetanus booster 08/07/2013 08/07/2003 Influenza for age 65+ 05/20/2023 07/25/2008 Care Teams Steno Typist Relationship Specialty Start Date End Date Frieda Alfaro MD [address] [place] [address] PCP - General Internal Medicine 04/03/13
--- OUTSIDE RECORDS SUMMARY | 2023-11-04 20:38 | XMS_ITS | Encounter Summary ---
Author Name Unknown Organization [facility] Address [address] [place] [address] Care Team Providers Care Community Recreation Programmer Name Role Phone Elsewhere, Pcp Primary Care Provider Unavailabl e Reason for Referral * Outpatient (Routine) - Authorized Specialty Diagnoses / Procedures Referred By Contthao t Referred To Contact Diagnoses High Risk Medication Bethany Talamantes APRN, C.N.P. [address] [address] [facility] [address] [place] [address] Phone: [phone] Referral ID Status Reason Start Date Expiration Date Visits Requested Visits Authorized [id number] Authorized Patient Preference 06/10/2023 06/09/2024 1 1 Encounter Details Date Type Department Care Team (Late st Contact Info) Description 06/10/2023 Orders Only Department of Dermatology in [place], [place] [address] [address] Bethany Talamantes APRN, C.N.P. [address] [address] High Risk Medication (Primary Dx) Social History Tobacco Use Types [...] as of this encounter Visit Diagnoses Diagnosis High Risk Medication- Primary documented in this encounter Care Teams Community Recreation Programmer Relationship Specialty Start Date End Date Elsewhere, Pcp PCP - General Family Medicine 10/09/18 documented as of this encounter
--- OUTSIDE RECORDS SUMMARY | 2023-11-04 20:38 | XMS_ITS | Encounter Summary ---
Author Name Unknown Organization [facility] Address [address] [place] [address] Care Team Providers Care Company Driver Name Role Phone Elsewhere, Pcp Primary Care Provider Unavailabl e Reason for Visit * Reason Comments Nail Problem * Appointment Request (Routine) - Closed Specialty Diagnoses / Procedures Referred By Deni wood Referred To Contact Dermatology Referral ID Status Reason Start Date Expiration Date Visits Re quested Visits Authorized [id number] Closed 06/06/2023 06/05/2024 1 1 Encounter Details Date Type Department Care Team (Latest Contact Info) Description 06/07/2023 3:30 PM CDT Office Visit Department of Family Medicine, [facility], in [place], [place] [address] [address] Bethany Talamantes APRN, C.N.P. [address] [address] Onychomycosis (Primary Dx); High Risk Medication Social History Tobacco Use Types Packs/Day Years [...] as of this encounter Progress Notes * Bethany Talamantes APRN, C.N.P., M.S.N. - 06/07/2023 3:30 PM CDT SUBJECTIVE CHIEF COMPLAINT / REASON FOR VISIT Nail Problem. HISTORY OF PRESENT ILLNESS Lorraine Caldwell is a 83 y.o. female who presents for evaluation of toenail fungus. She reports thather toenails have been progressively worsening over the past 2 years. He feels that she acquired toenail fungus from a nail salon that started on her left toenails and has spread to her right toenails. She is interested in treating these as they are difficult to cut and become painful at times. Per nursing notes: How long has rash been present, any symptoms (pain, bleeding, or itching)? : x2 years, no pain, itching, or bleeding General location of rash: mainly big toes Any known contacts/exposure: from pedicures What treatments/medication has patient tried: red wine vinegar Was patient referred, self referred, or a returning derm patient? : returning Personal or family history of eczema/psoriasis, or other skin condition? : Yes - Sks and AKs Any other skin concerns today? : No REVIEW OF SYSTEMS Constitutional, integumentary, and allergic/immunologic review of systems is negative except as otherwise remarked above or below. OBJECTIVE PHYSICAL EXAM General: Well-appearing female in no acute distress. Well groomed and dressed and answers appropriately to questions. Skin: I have examined the there is thickening, yellowing, and onycholysis involving all of the toenails. ASSESSMENT / PLAN #1 Onychomycosis #2 High Risk Medication The nature of condition was discussed with patient and after discussing treatment options she wouldlike to proceed with oral Lamisil 250 mg daily for 12 weeks. We will obtain baseline liver enzymes and repeat in 6 weeks. Additionally, toenail clippings were sent for RADHA for confirmation. PATIENT EDUCATION Ready to learn, no apparent [...] Procedure Name Priority Date/Time Associated Diagnosis Comments FUNGAL SMEAR Routine 06/07/2023 3:53 PM CDT Onychomycosis documented in this encounter Results * AST (Aspartate Aminotransferase) (06/07/2023 4:47 PM CDT) Aspartate Aminotransferase (AST), P 21 8 - 43 U/L 06/07/2023 5:12 PM CDT OWAT Blood (Blood, Venous) 06/07/2023 4:47 PM CDT 06/07/2023 4:49 PM CDT Bethany Talamantes APRN, C.N.P. LAB BLOOD ADD-ON Performing Organization Address City/[facility]/ZIP Co de Phone Number [facility] [address] [place] [address], [facility] [place] [address] [place] [address] * ALT (Alanine Aminotransferase) (06/07/2023 4:47 PM CDT) Alanine Aminotransferase (ALT), P 16 7 - 45 U/L 06/07/2023 5:12 PM CDT OWAT Blood (Blood, Venous) 06/07/2023 4:47 PM CDT 06/07/2023 4:49 PM CDT Bethany Talamantes APRN, C.N.P. LAB BLOOD ADD-ON Performing Organization Address City/[facility]/ZIP Co de Phone Number [facility] [address] [place] [address], [facility] [place] [address] [place] [address] * Fungal Smear (06/07/2023 3:53 PM CDT) Fungal Smear Negative. 06/07/2023 11:24 PM CDT MKTO Nail (Nail Clippings) 06/07/2023 3:53 PM CDT 06/07/2023 7:23 PM CDT Comment:Specimen Source Site : Nail Natanael Blas APRNNJessica LAB MICROBIOLOGY - GENERAL ORDERABLES [facility] [address] [place] [address], [facility] MKTO [facility] in [place] [address] [place] [address] documented in this encounter Visit Diagnoses Diagnosis Onychomycosis- Primary High Risk Medication documented in this encounter Care Teams Company Driver Relationship Specialty Start Date End Date Elsewhere, Pcp PCP - General Family Medicine 10/09/18 documented as of this encounter
--- OUTSIDE RECORDS SUMMARY | 2023-11-04 20:38 | XMS_ITS | Referral Summary ---
Author Name Unknown Organization [facility] Address [address] [place] [address] Care Team Providers Care Glaze Mixer Name Role Phone Elsewhere, Pcp Primary Care Provider Unavailabl e Source Comments Patient records contain information from all sites at [facility]. For routine questions regarding patient records, call [phone] during business hours, M-F 8:00 AM - 5:00 PM Central Time. Record requests for emergency care only can be directed to [phone] at any time.[facility] Allergies Active Allergy Reactions Criticality Noted Date Comments Atorvastatin Hives (Reselect Reaction) 01/20/20 07 Ezetimibe Hives (Reselect Reaction) 01/19/2007 Hydroxyzine Hallucinations 03/14/2018 Sulfa (Sulfonamide Antibiotics) Hives (Reselect Reaction) 01/19/2007 Tramadol Hives (Reselect Reaction) 01/19/2007 Medications Medication Sig Dispensed Refills Start Date End Date Status hydroCHLOROthiazide (HYDRODIURIL) 25 mg tablet 2 10/02/2018 Active levothyroxine (SYNTHROID, LEVOTHROID) 50 mcg tablet 2 08/21/2018 Active vitamins A,C,G-lfpd-ydzgea (ICAPS AREDS) 14,320 Units-226 mg-200 Units per [...] Comments Blood Pressure 129/55 11/13/2020 3:15 PM INSPECTION MACHINE TENDER Pulse 60 11/13/2020 3:15 PM INSPECTION MACHINE TENDER Temperature 36.3 ??C (97.3 ??F) 11/13/2020 3:09 PM CS T Respiratory Rate 9 11/13/2020 3:15 PM INSPECTION MACHINE TENDER Oxygen Saturation 99% 11/13/2020 3:15 PM INSPECTION MACHINE TENDER Inhaled Oxygen Concentration - - Weight 74.4 kg (164 lb 0.4 oz) 11/13/2020 12:22 PM INSPECTION MACHINE TENDER Height 165.6 cm (5' 5.2) 11/13/2020 12:22 PM CS T Body Mass Index 27.13 11/13/2020 12:22 PM INSPECTION MACHINE TENDER Plan of Treatment Not on file Medical Devices Implanted Type Area Site Acquisition Manager Device Identifier Shelf Expiration Date Model / Serial / Lot Knee Implant Knee Implant Bilateral : Knee Advance Directives For more information, please contact: [phone] Documents on File Type Date Recorded Patient Planning Engineer Expl anation Advance Directives 11/29/2006 12:00 AM Leg acy document. See document viewer. Care Teams Glaze Mixer Relationship Specialty Start Date End Date Elsewhere, Pcp PCP - General Family Medicine 10/09/18
--- OUTSIDE RECORDS SUMMARY | 2023-11-04 20:38 | XMS_ITS ---
Author Name Unknown Organization [facility] Address [address] [place] [address] Care Team Providers Care Loan Servicing Representative Name Role Phone Unavailable Unavailable Unavailable Surgery Details Not on file Complications Check Surgery Details section. Procedure Estimated Blood Loss Check Surgery Details section. Procedure Findings Check Surgery Details section. Procedure Specimens Taken Check Surgery Details section.
== END 2023-11-04 08:23 | disposition home or self-care (01) ==
LOC: NFLDREF 20:35
PROVIDERS: PCP Internal Medicine; Referring Provider Internal Medicine; Visit Provider Internal Medicine
DX: E03.9 Hypothyroidism, unspecified (principal); I10 Essential (primary) hypertension
CPT/HCPCS: 80048; 84443

== ENCOUNTER 2024-02-07 10:43 | Outpatient (CLI) | payer MEDICARE, BC, SELFPAY ==
--- OUTSIDE RECORDS SUMMARY | 2024-02-26 21:55 | XMS_ITS | Encounter Summary ---
Author Organization [facility] Address [address] [place] [address] Care Team Providers Care Foreign Language Interpreter Name Role Phone Elsewhere, Pcp Primary Care Provider Unavailabl e Encounter Details Date Type Department Care Team (Late st Contact Info) Description 01/19/2007 Historical Ophthalmology [facility] [place] [address] Social History Tobacco Use Types Packs/Day Years [...] thyroidectomy at least 15 yrs ago in [facility] On synthroid now Eyes: last year thought [...] right trochleitis CDM Reports - EYEGEN Id: [id number] Status: Fnl documented in this encounter Plan of Treatment Not on file documented as of this encounter Visit Diagnoses Not on filedocumented in this encounter Care Teams Foreign Language Interpreter Relationship Specialty Start Date End Date Elsewhere, Pcp PCP - General Family Medicine 10/09/18 documented as of this encounter
--- OUTSIDE RECORDS SUMMARY | 2024-02-26 21:55 | XMS_ITS | Clinical Summary ---
Author Organization [facility] Address [address] [place] [id number] Care Team Providers Care Footwear Sales Representative Name Role Phone Frieda Alfaro MD Primary [...] 2006 PHQ-2 (once per calendar year) 2023 COVID-19 Vaccine (2022- season) 2023 06/10/2023, 01/12/2023, 06/12/2022, Additional history exists DTAP/TDAP/TD IMMUNIZATION (3 - Td or Tdap) 12/09/2030 12/09/2020, 12/16/2010, 08/07/2003 Pneumococcal Vaccine: 65+ Years Completed 04/24/2018, 03/31/2015, 01/13/2007 ZOSTER IMMUNIZATION Completed 07/26/2018, 04/24/2018, 02/06/2010 INFLUENZA VACCINE Completed 06/10/2023, , 06/16/2021, Additional [...] age to complete this topic Care Teams Footwear Sales Representative Relationship Specialty Start Date End Date Frieda Alfaro MD [facility] [address] [place], [place] [id number] PCP - General Internal Medicine 11/19/20
--- OUTSIDE RECORDS SUMMARY | 2024-02-26 21:55 | XMS_ITS | Clinical Summary ---
Author Organization [facility] Address [address] [place] [address] Care Team Providers Care Glaze Handler Name Role Phone Elsewhere, Pcp Primary Care Provider Unavailabl e Source Comments Patient records contain information from all sites at [facility]. For routine questions regarding patient records, call [phone] during business hours, M-F 8:00 AM - 5:00 PM Central Time. Record requests for emergency care only can be directed to [phone] at any time.[facility] Allergies Active Allergy Reactions Criticality Noted Date Comments Atorvastatin Hives (Reselect Reaction) 01/20/20 07 Ezetimibe Hives (Reselect Reaction) 01/19/2007 Hydroxyzine Hallucinations 03/14/2018 Sulfa (Sulfonamide Antibiotics) Hives (Reselect Reaction) 01/19/2007 Tramadol Hives (Reselect Reaction) 01/19/2007 Medications Medication Sig Dispensed Refills Start Date End Date Status hydroCHLOROthiazide (HYDRODIURIL) 25 mg tablet 2 10/02/2018 Active levothyroxine (SYNTHROID, LEVOTHROID) 50 mcg tablet 2 08/21/2018 Active vitamins A,C,S-lxhe-rkcspz (ICAPS AREDS) 14,320 Units-226 mg-200 Units per capsule Take 2 capsules by mouth daily. Active calcium carbonate-vitamin D3 1,250 mg (500 mg calcium)-200 unit per tablet Take 1 tablet by mouth daily with breakfast. Active exemestane (AROMASIN) 25 mg tablet T1T DAILY 90 tablet 12/19/2019 Active lisinopriL (PRINIVIL,ZESTRIL) 10 mg tablet Take 10 mg by mouth daily. Active terbinafine (LamISIL) 250 mg tablet Take 1 tablet (250 mg total) by mouth daily. 84 tablet 06/10/2023 Active Immunizations Name Administration Dates Next [...] Date Recorded Dental: Regular Dentist Unknown 11/07/19 Sex and Gender Information Value Date Recorded Sex Assigned at Not on file Gender Identity Not on file Sexual Orientation Not on file Last Filed Vital Signs Vital Sign Reading Time Taken Comments Blood Pressure 129/55 11/13/2020 3:15 PM PROPERTY ASSESSMENT MONITOR Pulse 60 11/13/2020 3:15 PM PROPERTY ASSESSMENT MONITOR Temperature 36.3 ??C (97.3 ??F) 11/13/2020 3:09 PM CS T Respiratory Rate 9 11/13/2020 3:15 PM PROPERTY ASSESSMENT MONITOR Oxygen Saturation 99% 11/13/2020 3:15 PM PROPERTY ASSESSMENT MONITOR Inhaled Oxygen Concentration - - Weight 74.4 kg (164 lb 0.4 oz) 11/13/2020 12:22 PM PROPERTY ASSESSMENT MONITOR Height 165.6 cm (5' 5.2) 11/13/2020 12:22 PM CS T Body Mass Index 27.13 11/13/2020 12:22 PM PROPERTY ASSESSMENT MONITOR Plan of Treatment Health Maintenance Due Date Last Done Comments Thyroid Stimulating Hormone (TSH) test for thyroid function 1940 Creatinine Level (Kidney Fun ction Test) 11/10/2021 11/10/2020 Potassium Level 11/10/2021 11/10/2020 Sodium Level 11/10/2021 11/10/2020 COVID-19 Vaccine (2022-2 4 season) 2023 06/10/2023, 01/12/2023, 06/12/2022, Additional history exists Depression Screening (Annual PHQ-2) 09/19/2023 Fall Risk Screen (Annual) 09/19/2023 DTaP,Tdap,and Td Vaccines (3 - Td or Tdap) 12/09/2030 12/09/2020, 12/16/2010, 08/07/2003 Pneumococcal vaccine (65+ years) Completed 04/24/2018, 03/31/2015, 01/13/2007 Zoster Vaccines Completed 07/26/2018, 08/0 02/2018, 02/06/2010 Colonoscopy Discontinued 11/13/2020, 11/13/2020 Colorectal Cancer Surveillance Discontinued Influenza Vaccine Completed 06/10/2023, , 06/16/2021, Additional history exists CT Colonography Discontinued Cologuard Discontinued Medical Devices Implanted Type Area Advertising Assistant Manager Device Identifier Shelf Expiration Date Model / Serial / Lot Knee Implant Knee Implant Bilateral : Knee Procedures Procedure Name Priority Date/Time Associated Diagnosis Comments COLONOSCOPY Routine 11/13/2020 2:12 PM PROPERTY ASSESSMENT MONITOR Urgency Fecal Change In Bowel Habit COMPREHENSIVE METABOLIC PANEL, S/P Routine 11/10/2020 3:14 PM PROPERTY ASSESSMENT MONITOR Abdominal Pain Urgency Fecal Change In Bowel Habit from Last 3 Months or Most Recently Relevant to Health Maintenance Results * (ABNORMAL) Comprehensive Metabolic Panel (11/10/2020 3:14 PM PROPERTY ASSESSMENT MONITOR) Potassium, S 4.3 3.6 - 5.2 mmol/L 11/10/2020 4:05 PM PROPERTY ASSESSMENT MONITOR DTL Sodium, S 137 135 - 145 mmol/L 11/10/2020 4:05 PM PROPERTY ASSESSMENT MONITOR DTL Chloride, S 98 98 - 107 mmol/L 11/10/2020 4:05 PM PROPERTY ASSESSMENT MONITOR DTL Bicarbonate, S 30(H) 22 - 29 mmol/L 11/10/2020 4:05 PM PROPERTY ASSESSMENT MONITOR DTL Anion Gap 9 7 - 15 11/10/2020 4:05 PM PROPERTY ASSESSMENT MONITOR DTL BUN (Blood Urea Nitrogen), S 20 6 - 21 mg/dL 11/10/2020 4:05 PM PROPERTY ASSESSMENT MONITOR DTL Creatinine 0.97 0.59 - 1.04 mg/dL 11/10/2020 4:05 PM PROPERTY ASSESSMENT MONITOR DTL eGFR-Non Black/ 56(L) >=60 mL/min/BS A 11/10/2020 4:05 PM PROPERTY ASSESSMENT MONITOR DTL Comment: ----ADDITIONAL INFORMATION---- Estimated GFR calculated using the 2009 CKD_EPI creatinine equation. eGFR-Black/ 64 >=60 mL/min/BS A 11/10/2020 4:05 PM PROPERTY ASSESSMENT MONITOR DTL Comment: ----ADDITIONAL INFORMATION---- Estimated GFR calculated using the 2009 CKD_EPI creatinine equation. Calcium, Total, S 9.4 8.8 - 10.2 mg/dL 11/10/2020 4:05 PM PROPERTY ASSESSMENT MONITOR DTL Glucose, S 86 70 - 140 mg/dL 11/10/2020 4:05 PM PROPERTY ASSESSMENT MONITOR DTL Protein, Total, S 6.4 6.3 - 7.9 g/dL 11/10/2020 4:05 PM PROPERTY ASSESSMENT MONITOR DTL Albumin, S 4.3 3.5 - 5.0 g/dL 11/10/2020 4:05 PM PROPERTY ASSESSMENT MONITOR DTL Aspartate Aminotransferase (AST), S 21 8 - 43 U/L 11/10/2020 4:05 PM PROPERTY ASSESSMENT MONITOR DTL Alkaline Phosphatase, S 78 35 - 104 U/L 11/10/2020 4:05 PM PROPERTY ASSESSMENT MONITOR DTL Alanine Aminotransferase (ALT), S 21 7 - 45 U/L 11/10/2020 4:05 PM PROPERTY ASSESSMENT MONITOR DTL Bilirubin, Total, S 0.3 <=1.2 mg/dL 11/10/2020 4:05 PM PROPERTY ASSESSMENT MONITOR DTL Blood (Blood, Venous) 11/10/2020 3:14 PM PROPERTY ASSESSMENT MONITOR 11/10/2020 3:37 PM PROPERTY ASSESSMENT MONITOR Dorian Mensah Ph.D. LAB BLOOD ADD-ON [facility] [address] [place] [address], [facility] [address] [place] [address] from Last 3 Months or Most Recently Relevant to Health Maintenance Advance Directives For more information, please contact: [phone] Documents on File Type Date Recorded Patient Residential Sales Expl anation Advance Directives 11/29/2006 12:00 AM Leg acy document. See document viewer. Care Teams Glaze Handler Relationship Specialty Start Date End Date Elsewhere, Pcp PCP - General Family Medicine 10/09/18
--- OUTSIDE RECORDS SUMMARY | 2024-02-26 21:55 | XMS_ITS | Referral Summary ---
Author Organization [facility] Address [address] [place] [address] Care Team Providers Care Rubble Placer Name Role Phone Elsewhere, Pcp Primary Care Provider Unavailabl e Source Comments Patient records contain information from all sites at [facility]. For routine questions regarding patient records, call [phone] during business hours, M-F 8:00 AM - 5:00 PM Central Time. Record requests for emergency care only can be directed to [phone] at any time.[facility] Allergies Active Allergy Reactions Criticality Noted Date Comments Atorvastatin Hives (Reselect Reaction) 01/20/20 07 Ezetimibe Hives (Reselect Reaction) 01/19/2007 Hydroxyzine Hallucinations 03/14/2018 Sulfa (Sulfonamide Antibiotics) Hives (Reselect Reaction) 01/19/2007 Tramadol Hives (Reselect Reaction) 01/19/2007 Medications Medication Sig Dispensed Refills Start Date End Date Status hydroCHLOROthiazide (HYDRODIURIL) 25 mg tablet 2 10/02/2018 Active levothyroxine (SYNTHROID, LEVOTHROID) 50 mcg tablet 2 08/21/2018 Active vitamins A,C,C-jsmm-lzricv (ICAPS AREDS) 14,320 Units-226 mg-200 Units per [...] Comments Blood Pressure 129/55 11/13/2020 3:15 PM OPEN END SPINNING OPERATOR Pulse 60 11/13/2020 3:15 PM OPEN END SPINNING OPERATOR Temperature 36.3 ??C (97.3 ??F) 11/13/2020 3:09 PM CS T Respiratory Rate 9 11/13/2020 3:15 PM OPEN END SPINNING OPERATOR Oxygen Saturation 99% 11/13/2020 3:15 PM OPEN END SPINNING OPERATOR Inhaled Oxygen Concentration - - Weight 74.4 kg (164 lb 0.4 oz) 11/13/2020 12:22 PM OPEN END SPINNING OPERATOR Height 165.6 cm (5' 5.2) 11/13/2020 12:22 PM CS T Body Mass Index 27.13 11/13/2020 12:22 PM OPEN END SPINNING OPERATOR Plan of Treatment Not on file Medical Devices Implanted Type Area Pit Manager Device Identifier Shelf Expiration Date Model / Serial / Lot Knee Implant Knee Implant Bilateral : Knee Procedures Procedure Name Priority Date/Time Associated Diagnosis Comments COLONOSCOPY Routine 11/13/2020 2:12 PM OPEN END SPINNING OPERATOR Urgency Fecal Change In Bowel Habit COMPREHENSIVE METABOLIC PANEL, S/P Routine 11/10/2020 3:14 PM OPEN END SPINNING OPERATOR Abdominal Pain Urgency Fecal Change In Bowel Habit from Last 3 Months or Most Recently Relevant to Health Maintenance Results * (ABNORMAL) Comprehensive Metabolic Panel (11/10/2020 3:14 PM OPEN END SPINNING OPERATOR) Potassium, S 4.3 3.6 - 5.2 mmol/L 11/10/2020 4:05 PM OPEN END SPINNING OPERATOR DTL Sodium, S 137 135 - 145 mmol/L 11/10/2020 4:05 PM OPEN END SPINNING OPERATOR DTL Chloride, S 98 98 - 107 mmol/L 11/10/2020 4:05 PM OPEN END SPINNING OPERATOR DTL Bicarbonate, S 30(H) 22 - 29 mmol/L 11/10/2020 4:05 PM OPEN END SPINNING OPERATOR DTL Anion Gap 9 7 - 15 11/10/2020 4:05 PM OPEN END SPINNING OPERATOR DTL BUN (Blood Urea Nitrogen), S 20 6 - 21 mg/dL 11/10/2020 4:05 PM OPEN END SPINNING OPERATOR DTL Creatinine 0.97 0.59 - 1.04 mg/dL 11/10/2020 4:05 PM OPEN END SPINNING OPERATOR DTL eGFR-Non Black/ 56(L) >=60 mL/min/BS A 11/10/2020 4:05 PM OPEN END SPINNING OPERATOR DTL Comment: ----ADDITIONAL INFORMATION---- Estimated GFR calculated using the 2009 CKD_EPI creatinine equation. eGFR-Black/ 64 >=60 mL/min/BS A 11/10/2020 4:05 PM OPEN END SPINNING OPERATOR DTL Comment: ----ADDITIONAL INFORMATION---- Estimated GFR calculated using the 2009 CKD_EPI creatinine equation. Calcium, Total, S 9.4 8.8 - 10.2 mg/dL 11/10/2020 4:05 PM OPEN END SPINNING OPERATOR DTL Glucose, S 86 70 - 140 mg/dL 11/10/2020 4:05 PM OPEN END SPINNING OPERATOR DTL Protein, Total, S 6.4 6.3 - 7.9 g/dL 11/10/2020 4:05 PM OPEN END SPINNING OPERATOR DTL Albumin, S 4.3 3.5 - 5.0 g/dL 11/10/2020 4:05 PM OPEN END SPINNING OPERATOR DTL Aspartate Aminotransferase (AST), S 21 8 - 43 U/L 11/10/2020 4:05 PM OPEN END SPINNING OPERATOR DTL Alkaline Phosphatase, S 78 35 - 104 U/L 11/10/2020 4:05 PM OPEN END SPINNING OPERATOR DTL Alanine Aminotransferase (ALT), S 21 7 - 45 U/L 11/10/2020 4:05 PM OPEN END SPINNING OPERATOR DTL Bilirubin, Total, S 0.3 <=1.2 mg/dL 11/10/2020 4:05 PM OPEN END SPINNING OPERATOR DTL Blood (Blood, Venous) 11/10/2020 3:14 PM OPEN END SPINNING OPERATOR 11/10/2020 3:37 PM OPEN END SPINNING OPERATOR Dorian Mensah Ph.D. LAB BLOOD ADD-ON [facility] [address] [place] [address], [place] DTL [facility] [address] [place] [address] from Last 3 Months or Most Recently Relevant to Health Maintenance Advance Directives For more information, please contact: [phone] Documents on File Type Date Recorded Patient Fiberglass Laminator Expl anation Advance Directives 11/29/2006 12:00 AM Leg acy document. See document viewer. Care Teams Rubble Placer Relationship Specialty Start Date End Date Elsewhere, Pcp PCP - General Family Medicine 10/09/18
--- OUTSIDE RECORDS SUMMARY | 2024-02-26 21:55 | XMS_ITS | Referral Summary ---
Author Organization [facility] Address [address] [place] [address] Care Team Providers Care Supplies Packer Name Role Phone Frieda Alfaro MD Primary Care Provider [phone] Resolved Problems Problem Noted Date Diagnosed Date [...] of Treatment Not on file Care Teams Supplies Packer Relationship Specialty Start Date End Date Frieda Alfaro MD [facility] [address] [place] [address] PCP - General Internal Medicine 11/19/20
--- OUTSIDE RECORDS SUMMARY | 2024-02-26 21:55 | XMS_ITS | Clinical Summary ---
Author Organization [facility] Address [place], [place] [address] Care Team Providers Care Stitchdown Toe Former Name Role Phone Frieda Alfaro MD Primary Care Provider [phone] Allergies Active Allergy Reactions Criticality Noted Date [...] Health Maintenance Due Date Last Done Comments Tdap 1951 Depression screening for age 12+ 1953 BMI (ht and wt on same day) for age 18+ 1959 Zoster (shingles) series for age 50+ (1 of 2) 04/21/19 91 DEXA/DXA scan for age 65+ 2006 Pneumococcal series for age 65+ (1 of 1 - PCV) 006 Tetanus booster 08/07/2013 08/07/2003 COVID-19 vaccine series (1 - 2022-24 season) 3 Influenza for age 65+ 05/20/2024 07/25/2008 Care Teams Stitchdown Toe Former Relationship Specialty Start Date End Date Frieda Alfaro MD [address] [place] [address] PCP - General Internal Medicine 04/03/13
--- OUTSIDE RECORDS SUMMARY | 2024-02-26 21:55 | XMS_ITS ---
Author Organization [facility] Address [address] [place] [address] Care Team Providers Care Oracle Brm Developer Name Role Phone Unavailable Unavailable Unavailable Surgery Details Not on file Complications Check Surgery Details section. Procedure Estimated Blood Loss Check Surgery Details section. Procedure Findings Check Surgery Details section. Procedure Specimens Taken Check Surgery Details section.
== END 2024-02-07 10:44 | disposition home or self-care (01) ==
LOC: NFLDREF 02-26 21:53
PROVIDERS: PCP Internal Medicine; Referring Provider Internal Medicine; Visit Provider Registered Nurse
DX: N39.0 Urinary tract infection, site not specified (principal); N30.00 Acute cystitis without hematuria
CPT/HCPCS: 87086

== ENCOUNTER 2024-07-11 15:48 | Outpatient (CLI) | payer MEDICARE, BC, SELFPAY ==
--- OUTSIDE RECORDS SUMMARY | 2024-07-12 11:33 | XMS_ITS | Referral Summary ---
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 Muscle weakness (generalized) 11/25/2021 01/26/2022 Slow transit constipation 11/25/2021 Myalgia of pelvic floor 11/25/202101/17 Social History Tobacco Use Types Packs/Day Years Used Date Smoking Tobacco: Never Assessed Adolescent Education Answer Date Record ed Getting School Help Needed Not on file 06/11 Comments Unknown Sex and Gender Information Value Date Recorded Sex Assigned at Not on file Legal Sex Female 7:15 AM ROLL GRINDER Gender Identity Not on file Sexual Orientation Not on file Plan of Treatment Upcoming Encounters Date Type Department Care Team (Late st Contact Info) Description 07/26/2024 8:40 AM ROLL GRINDER Therapy Visit [address] [place] [address] Rosibel Brown, PT [facility] [address] [place] [address] 08/09/2024 10:00 AM ROLL GRINDER Therapy Visit [place] [address] [place] [phone] Rosibel Brown, PT [facility] [address] [facility] [address] [place] [address] Insurance [facility] [place] [facility] [place] MEDICARE [place] MEDICARE Care Teams Administrative Asst Relationship Specialty Start Date End Date Frieda Alfaro MD [facility] [facility] [address] [place] [address] PCP - General Internal Medicine 11/19/20
--- OUTSIDE RECORDS SUMMARY | 2024-07-12 11:33 | XMS_ITS | Clinical Summary ---
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 Muscle weakness (generalized) 11/25/2021 01/26/2022 Slow transit constipation 11/25/2021 Myalgia of pelvic floor 11/25/202101/17 Encounters Date Type Department Care Team Description 07/06/2024 Transcribe Orders GENERIC EXTERNAL DATA DEPARTMENT Frieda Alfaro MD Pelvic floor dysfunction (Primary Dx) from Last 3 Months Social History Tobacco Use Types Packs/Day Years Used Date Smoking Tobacco: Never Assessed Adolescent Education Answer Date Record ed Getting School Help Needed Not on file 06/11 Comments Unknown Sex and Gender Information Value Date Recorded Sex Assigned at Not on file Legal Sex Female 7:15 AM NUTRITIONIST Gender Identity Not on file Sexual Orientation Not on file Plan of Treatment Upcoming Encounters Date Type Department Care Team (Late st Contact Info) Description 07/26/2024 8:40 AM NUTRITIONIST Therapy Visit [address] [place] [address] Rosibel Brown, PT [facility] [address] [place] [address] 08/09/2024 10:00 AM NUTRITIONIST Therapy Visit [place] [address] [place] [phone] Rosibel Brown, PT [facility] [address] [place] [address] [address] [place], [place] [phone] Health Maintenance Due Date Last Done Comments ADVANCE CARE PLANNING 1940 ANNUAL REVIEW OF HM ORDERS 1940 DEXA 1940 FALL RISK ASSESSMENT 2006 MEDICARE ANNUAL WELLNESS VISIT 2006 RSV VACCINE (1 - 1-dose 75+ series) 2016 PHQ-2 (once per calendar year) 2023 DTAP/TDAP/TD IMMUNIZATION (3 - Td or Tdap) 12/09/2030 12/09/2020, 12/16/2010, 08/07/2003 Pneumococcal Vaccine: 65+ Years Completed 04/24/2018, 03/31/2015, 01/13/2007 ZOSTER IMMUNIZATION Completed 07/26/2018, 04/24/2018, 02/06/2010 COVID-19 Vaccine Completed 06/15/2024, , 01/12/2023, Additional history exists INFLUENZA VACCINE Completed 06/15/2024, , 06/28/2022, Additional history exists HPV IMMUNIZATION Aged Out No longer e ligible based on patient's age to complete this topic MENINGITIS IMMUNIZATION Aged Out No l onger eligible based on patient's age to complete this topic RSV MONOCLONAL ANTIBODY Aged Out No l onger eligible based on patient's age to complete this topic Insurance [facility] [place] [employer] [facility] [place] BL[place] MEDICARE [facility] [place] [employer] MEDICARE Care Teams Acid Retort Operator Relationship Specialty Start Date End Date Frieda Alfaro MD [address] [address] PCP - General Internal Medicine 11/19/20
--- OUTSIDE RECORDS SUMMARY | 2024-07-12 11:33 | XMS_ITS ---
Author Organization [facility] Address [address] [place] [address] Care Team Providers Care Commercial Credit Portfolio Manager Name Role Phone Unavailable Unavailable Unavailable Surgery Details Not on file Complications Check Surgery Details section. Procedure Estimated Blood Loss Check Surgery Details section. Procedure Findings Check Surgery Details section. Procedure Specimens Taken Check Surgery Details section.
--- OUTSIDE RECORDS SUMMARY | 2024-07-12 11:33 | XMS_ITS | Clinical Summary ---
Author Organization [facility] Address [place], [place] [address] Care Team Providers Care It Trainee Name Role Phone Frieda Alfaro MD Primary Care Provider [phone] Jorge Garcia MD Unavailable Allergies Active Allergy Reactions Criticality Noted Date Comments Hydroxyzine Hallucinations 03/14/2018 Atorvastatin Rash 05/09/2007 Sulfa (Sulfonamide Antibiotics) 03/20 [...] by mouth daily 90 0 11/14/2008 Active calcium with vitamin D3 (OS-OLGA 500 + D) tablet Take 1 Tablet by mouth. 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 12/22/2007 Pure hypercholesterolemia 12/22/2007 Atherosclerosis of renal artery 12/22/2007 Osteoarthrosis, unspecified whether generalized or localized, unspecified site 12/22/2007 Diverticulosis of colon (without mention of hemo rrhage) 12/22/2007 Herpes zoster without mention of complication 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 Malignant neoplasm of breast (female), unspecifi ed site 04/12/2007 Encounters Date Type Department Care Team Description 07/11/[address] [address] Jorge Garcia MD 07/02/2024 8:20 AM CDT Office Visit [address] [phone] Jorge Garcia MD Consult (OAB, Several UTIs in the past) 07/02/2024 Travel 04/28/2024 Transcribe Orders [facility] [address] [place] [address] Frieda Alfaro MD from Last 3 Months Immunizations Name Administration Dates Next Due AMB Influenza, IIV3 (Age >=3 years)(Flu Clinic O [facility]) 07/25/2008 Td (Age >=7 Years) 08/07/2003 Social History Tobacco Use Types Packs/Day Years Used Date Smoking Tobacco: Never Passive Smoke Exposure: Never Tobacco Cessation:Counseling Given: Not Answered Alcohol Use Standard Drinks/Week Comments Yes 1 (1 standard drink = 0.6 oz pur e alcohol) Sex and Gender Information Value Date Recorded Sex Assigned at Not on file Gender Identity Not on file Sexual Orientation Not on file Obstetrics History Last Filed Vital Signs Vital Sign Reading Time Taken Comments Blood Pressure 142/62 07/02/2024 8:25 AM CDT Pulse 68 07/02/2024 8:25 AM CDT Temperature - - Respiratory Rate 16 04/12/2007 10:05 AM CDT Oxygen Saturation - - Inhaled Oxygen Concentration - - Weight 68.3 kg (150 lb 9.6 oz) 07/02/2024 8:25 A M CDT Height 165.1 cm (5' 5) 12/22/2007 8:11 AM CDT Body Mass Index - - Plan of Treatment Health Maintenance Due Date Last Done Comments Tdap 1951 Depression screening for age 12+ 1953 BMI (ht and wt on same day) for age 18+ 1959 Zoster (shingles) series for age 50+ (1 of 2) 1991 DEXA/DXA scan for age 65+ 2006 Medicare Wellness for age 65+ 2006 Pneumococcal series for age 65+ (1 of 1 - PCV) 2006 Tetanus booster 08/07/2013 08/07/2003 RSV vaccine for adults or (1 - 1-dose 75+ series) 2016 Influenza for age 65+ 05/20/2024 07/25/2008 COVID-19 vaccine series Completed 06/15/20, 06/10/2023, 01/12/2023, Additional history exists Procedures Procedure Name Priority Date/Time Associated Diagnosis Comments [place] MARTY POST-VOIDING RESIDUAL URINE&/BLADDER CAP Routine 07/02/2024 12:00 AM CDT Urinary tract infection without hematuria, site unspecified Atrophic vaginitis Incomplete bladder emptying from Last 3 Months Results * [place] MARTY POST-VOIDING RESIDUAL URINE&/BLADDER CAP (07/02/2024 12:00 AM CDT) Jorge Garcia MD PB - URINARY S YSTEM SERVICES from Last 3 Months Care Teams It Trainee Relationship Specialty Start Date End Date Frieda Alfaro MD [address] [place] [address] PCP - General Internal Medicine 04/03/13 Jorge Garcia MD [address] [place] [address] Surgery - Urology 07/02/24
--- OUTSIDE RECORDS SUMMARY | 2024-07-12 11:33 | XMS_ITS | Clinical Summary ---
Author Organization [facility] Address [address] [place] [address] Care Team Providers Care Shop Supervisor Name Role Phone Elsewhere, Pcp Primary Care Provider Unavailabl e Source Comments Patient records contain information from all sites at [facility]. For routine questions regarding patient records, call [phone] during business hours, M-F 8:00 AM - 5:00 PM Central Time. Record requests for emergency care only can be directed to [phone] at any time.[facility] Allergies Active Allergy Reactions Criticality Noted Date Comments Atorvastatin Hives (Reselect Reaction) 01/20/20 07 Ezetimibe Hives (Reselect Reaction) 01/19/2007 Hydroxyzine Hallucinations 03/14/2018 Sulfa (Sulfonamide Antibiotics) Hives (Reselect Reaction) 01/19/2007 Tramadol Hives (Reselect Reaction) 01/19/2007 Medications hydroCHLOROthia zide (HYDRODIURIL) 25 mg tablet 2 10/02/2018 Active levothyroxine (SYNTHROID, LEVOTHROID) 50 mcg tablet 2 08/21/2018 Active vitamins A,C,E-zinc-katarzyna er (ICAPS AREDS) 14,320 Units-226 mg-200 Units per capsule Take 2 capsules by mouth daily. Active calcium carbonate-vitam in D3 1,250 mg (500 mg calcium)-200 unit per tablet Take 1 tablet by mouth daily with breakfast. Active exemestane (AROMASIN) 25 mg tablet T1T DAILY 90 tablet 12/19/2019 Active lisinopriL (PRINIVIL,ZESTR IL) 10 mg tablet Take 10 mg by mouth daily. Active terbinafine (LamISIL) 250 mg tablet Take 1 tablet (250 mg total) by mouth daily. 84 tablet 06/10/2023 Active Immunizations Name Administration Dates Next Due influenza trivalent high dose (HD)(PF) 9 Social History Tobacco Use Types Packs/Day Years Used Date Smoking Tobacco: Never Smokeless Tobacco: Never Alcohol Use Standard Drinks/Week Comments Yes 7 (1 standard drink = 0.6 oz pur e alcohol) Nutrition Answer Date Recorded Nutrition: EVOO Fat Source 13 04/15 Nutrition: Servings of Fruits/Vegetables per Day Not on file 04/15/2020 Dental Answer Date Recorded Dental: Regular Dentist Unknown 11/07/19 21 Comments No Sex and Gender Information Value Date Recorded Sex Assigned at Not on file Legal Sex Female 9:44 AM SENIOR CLERK Gender Identity Not on file Sexual Orientation Not on file Last Filed Vital Signs Vital Sign Reading Time Taken Comments Blood Pressure 129/55 11/13/2020 3:15 PM SENIOR CLERK Pulse 60 11/13/2020 3:15 PM SENIOR CLERK Temperature 36.3 ??C (97.3 ??F) 11/13/2020 3:09 PM CS T Respiratory Rate 9 11/13/2020 3:15 PM SENIOR CLERK Oxygen Saturation 99% 11/13/2020 3:15 PM SENIOR CLERK Inhaled Oxygen Concentration - - Weight 74.4 kg (164 lb 0.4 oz) 11/13/2020 12:22 PM SENIOR CLERK Height 165.6 cm (5' 5.2) 11/13/2020 12:22 PM CS T Body Mass Index 27.13 11/13/2020 12:22 PM SENIOR CLERK Plan of Treatment Upcoming Encounters Date Type Department Care Team (Late st Contact Info) Description 07/16/2024 11:30 AM CDT Office Visit Department of Family Medicine, [facility], in [place], [place] [address] [place] [phone] Bethany Talamantes APRN, C.N.P. [address], [place] [address] Health Maintenance Due Date Last Done Comments Thyroid Stimulating Hormone (TSH) test for thyroid function 1941 RSV vaccine - (32-3 6 weeks) or 60+ years (1 - 1-dose 75+ series) 2016 Creatinine Level (Kidney Fun ction Test) 11/10/2021 11/10/2020 Potassium Level 11/10/2021 11/10/2020 Sodium Level 11/10/2021 11/10/2020 Depression Screening (Annual PHQ-2) 09/19/2023 Fall Risk Screen (Annual) 09/19/2023 COVID-19 Vaccine (8 - 2023-2 5 season) 2024 06/10/2023, 01/12/2023, 06/12/2022, Additional history exists Influenza Vaccine (#1) 2024 , 06/28/2022, 06/16/2021, Additional history exists DTaP,Tdap,and Td Vaccines (3 - Td or Tdap) 12/09/2030 12/09/2020, 12/16/2010, 08/07/2003 Pneumococcal vaccine (65+ years) Completed 04/24/2018, 03/31/2015, 01/13/2007 Zoster Vaccines Completed 07/26/2018, 02/2018, 02/06/2010 Colonoscopy Discontinued 11/13/2020, 11/13/2020 Colorectal Cancer Surveillance Discontinued CT Colonography Discontinued Cologuard Discontinued Medical Devices Implanted Type Area Anodize Machine Operator Device Identifier Shelf Expiration Date Model / Serial / Lot Knee Implant Knee Implant Bilateral : Knee Procedures Procedure Name Priority Date/Time Associated Diagnosis Comments COLONOSCOPY Routine 11/13/2020 2:12 PM SENIOR CLERK Urgency Fecal Change In Bowel Habit COMPREHENSIVE METABOLIC PANEL, S/P Routine 11/10/2020 3:14 PM SENIOR CLERK Abdominal Pain Urgency Fecal Change In Bowel Habit from Last 3 Months or Most Recently Relevant to Health Maintenance Results * (ABNORMAL) Comprehensive Metabolic Panel (11/10/2020 3:14 PM SENIOR CLERK) Potassium, S 4.3 3.6 - 5.2 mmol/L 11/10/2020 4:05 PM SENIOR CLERK DTL Sodium, S 137 135 - 145 mmol/L 11/10/2020 4:05 PM SENIOR CLERK DTL Chloride, S 98 98 - 107 mmol/L 11/10/2020 4:05 PM SENIOR CLERK DTL Bicarbonate, S 30(H) 22 - 29 mmol/L 11/10/2020 4:05 PM SENIOR CLERK DTL Anion Gap 9 7 - 15 11/10/2020 4:05 PM SENIOR CLERK DTL BUN (Blood Urea Nitrogen), S 20 6 - 21 mg/dL 11/10/2020 4:05 PM SENIOR CLERK DTL Creatinine 0.97 0.59 - 1.04 mg/dL 11/10/2020 4:05 PM SENIOR CLERK DTL eGFR-Non Black/ 56(L) >=60 mL/min/BS A 11/10/2020 4:05 PM SENIOR CLERK DTL Comment: ----ADDITIONAL INFORMATION---- Estimated GFR calculated using the 2009 CKD_EPI creatinine equation. eGFR-Black/ 64 >=60 mL/min/BS A 11/10/2020 4:05 PM SENIOR CLERK DTL Comment: ----ADDITIONAL INFORMATION---- Estimated GFR calculated using the 2009 CKD_EPI creatinine equation. Calcium, Total, S 9.4 8.8 - 10.2 mg/dL 11/10/2020 4:05 PM SENIOR CLERK DTL Glucose, S 86 70 - 140 mg/dL 11/10/2020 4:05 PM SENIOR CLERK DTL Protein, Total, S 6.4 6.3 - 7.9 g/dL 11/10/2020 4:05 PM SENIOR CLERK DTL Albumin, S 4.3 3.5 - 5.0 g/dL 11/10/2020 4:05 PM SENIOR CLERK DTL Aspartate Aminotransferase (AST), S 21 8 - 43 U/L 11/10/2020 4:05 PM SENIOR CLERK DTL Alkaline Phosphatase, S 78 35 - 104 U/L 11/10/2020 4:05 PM SENIOR CLERK DTL Alanine Aminotransferase (ALT), S 21 7 - 45 U/L 11/10/2020 4:05 PM SENIOR CLERK DTL Bilirubin, Total, S 0.3 <=1.2 mg/dL 11/10/2020 4:05 PM SENIOR CLERK DTL Blood (Blood, Venous) 11/10/2020 3:14 PM SENIOR CLERK 11/10/2020 3:37 PM SENIOR CLERK Dorian Mensah Ph.D. LAB BLOOD ADD-ON Final Re sult [facility] [address] [place] [address], [place] DTL [facility] [address] [place] [address] from Last 3 Months or Most Recently Relevant to Health Maintenance Insurance [facility] MEDICARE Advance Directives For more information, please contact: [phone] Documents on File Type Date Recorded Patient Irrigationist Designer Expl anation Advance Directives 11/29/2006 12:00 AM Leg acy document. See document viewer. Care Teams Shop Supervisor Relationship Specialty Start Date End Date Elsewhere, Pcp PCP - General Family Medicine 10/09/18
--- OUTSIDE RECORDS SUMMARY | 2024-07-12 11:33 | XMS_ITS | Encounter Summary ---
Author Organization [facility] Address [address] [place] [address] Care Team Providers Care Computer Project Manager Name Role Phone Frieda Alfaro MD Primary Care Provider + [phone] Reason for Referral * Rehab Therapy Physical Therapy (Routine) - Pending Review Specialty Diagnoses / Procedures Referred By Deni t Referred To Contact Diagnoses Pelvic floor dysfunction Frieda Alfaro MD [address] [address] Phone: tel: fax: Referral ID Status Reason Start Date Expiration Date V isits Requested Visits Authorized [id number] Pending Review 07/06/2024 07/06/2025 1 1 Question Answer Course of Action: Evaluation and Treatment Specialty Services: Pelvic Health Pelvic Health: Other My Clinical Question Is: pelvic floor dysfunction Scheduling Instructions: [facility] will call you to coordinate your care as prescribed by your provider. If you don't hear from a sales representative aircraft within 2 business days, please call . Comments Please be aware that coverage of these services is subject to the terms and limitations of your health insurance plan. Call member services at your health plan with any benefit or coverage questions. [facility] will call you to coordinate your care as prescribed by your provider. If you don't hear from a sales representative aircraft within 2 business days, please call . Encounter Details Date Type Department Care Team (Late st Contact Info) Description 07/06/2024 Transcribe Orders GENERIC EXTERNAL DATA DEPARTMENT Frieda Alfaro MD [facility] [address] [place] [address] Pelvic floor dysfunction (Primary Dx) Social History Tobacco Use Types Packs/Day Years Used Date Smoking Tobacco: Never Assessed Adolescent Education Answer Date Record ed Getting School Help Needed Not on file 06/11 Comments Unknown Sex and Gender Information Value Date Recorded Sex Assigned at Not on file Legal Sex Female 7:15 AM GRAPHICS EDIT TECHNICIAN Gender Identity Not on file Sexual Orientation Not on file documented as of this encounter Plan of Treatment Upcoming Encounters Date Type Department Care Team (Late st Contact Info) Description 07/26/2024 8:40 AM GRAPHICS EDIT TECHNICIAN Therapy Visit [address] [phone] [facility] PT [facility] [address] [place] [address] 08/09/2024 10:00 AM GRAPHICS EDIT TECHNICIAN Therapy Visit [address] [phone] Rosibel Brown, PT [address] [address] Scheduled Referrals Name Type Priority Associated Diagnoses Orde r Schedule Physical Therapy Assembler Movement Referral Referral Routine Pelvic floor dysfunction Ordered: 07/06/2024 documented as of this encounter Visit Diagnoses Diagnosis Pelvic floor dysfunction- Primary Pelvic muscle wasting documented in this encounter Care Teams Computer Project Manager Relationship Specialty Start Date End Date Frieda Alfaro MD [facility] [address] [place] [address] PCP - General Internal Medicine 11/19/20 documented as of this encounter
--- OUTSIDE RECORDS SUMMARY | 2024-07-12 11:33 | XMS_ITS | Referral Summary ---
Author Organization [facility] Address [address] [place] [address] Care Team Providers Care Batch Plant Operator Name Role Phone Elsewhere, Pcp Primary Care Provider Unavailabl e Source Comments Patient records contain information from all sites at [facility]. For routine questions regarding patient records, call [phone] during business hours, M-F 8:00 AM - 5:00 PM Central Time. Record requests for emergency care only can be directed to [phone] at any time.[facility] Allergies Active Allergy Reactions Criticality Noted Date [...] on file Legal Sex Female 9:44 AM JOY OPERATOR Gender Identity Not on file Sexual Orientation Not on file Last Filed Vital Signs Vital Sign Reading Time Taken Comments Blood Pressure 129/55 11/13/2020 3:15 PM JOY OPERATOR Pulse 60 11/13/2020 3:15 PM JOY OPERATOR Temperature 36.3 ??C (97.3 ??F) 11/13/2020 3:09 PM CS T Respiratory Rate 9 11/13/2020 3:15 PM JOY OPERATOR Oxygen Saturation 99% 11/13/2020 3:15 PM JOY OPERATOR Inhaled Oxygen Concentration - - Weight 74.4 kg (164 lb 0.4 oz) 11/13/2020 12:22 PM JOY OPERATOR Height 165.6 cm (5' 5.2) 11/13/2020 12:22 PM CS T Body Mass Index 27.13 11/13/2020 12:22 PM JOY OPERATOR Plan of Treatment Upcoming Encounters Date Type Department Care Team (Late st Contact Info) Description 07/16/2024 11:30 AM CDT Office Visit Department of Family Medicine, [facility], in [place], [place] [address] [place] [phone] Bethany Talamantes APRN, C.N.P. [address] [place] [phone] Medical Devices Implanted Type Area Hedis Review Nurse Device Identifier Shelf Expiration Date Model / Serial / Lot Knee Implant Knee Implant Bilateral : Knee Procedures Procedure Name Priority Date/Time Associated Diagnosis Comments COLONOSCOPY Routine 11/13/2020 2:12 PM JOY OPERATOR Urgency Fecal Change In Bowel Habit COMPREHENSIVE METABOLIC PANEL, S/P Routine 11/10/2020 3:14 PM JOY OPERATOR Abdominal Pain Urgency Fecal Change In Bowel Habit from Last 3 Months or Most Recently Relevant to Health Maintenance Results * (ABNORMAL) Comprehensive Metabolic Panel (11/10/2020 3:14 PM JOY OPERATOR) Potassium, S 4.3 3.6 - 5.2 mmol/L 11/10/2020 4:05 PM JOY OPERATOR DTL Sodium, S 137 135 - 145 mmol/L 11/10/2020 4:05 PM JOY OPERATOR DTL Chloride, S 98 98 - 107 mmol/L 11/10/2020 4:05 PM JOY OPERATOR DTL Bicarbonate, S 30(H) 22 - 29 mmol/L 11/10/2020 4:05 PM JOY OPERATOR DTL Anion Gap 9 7 - 15 11/10/2020 4:05 PM JOY OPERATOR DTL BUN (Blood Urea Nitrogen), S 20 6 - 21 mg/dL 11/10/2020 4:05 PM JOY OPERATOR DTL Creatinine 0.97 0.59 - 1.04 mg/dL 11/10/2020 4:05 PM JOY OPERATOR DTL eGFR-Non Black/ 56(L) >=60 mL/min/BS A 11/10/2020 4:05 PM JOY OPERATOR DTL Comment: ----ADDITIONAL INFORMATION---- Estimated GFR calculated using the 2009 CKD_EPI creatinine equation. eGFR-Black/ 64 >=60 mL/min/BS A 11/10/2020 4:05 PM JOY OPERATOR DTL Comment: ----ADDITIONAL INFORMATION---- Estimated GFR calculated using the 2009 CKD_EPI creatinine equation. Calcium, Total, S 9.4 8.8 - 10.2 mg/dL 11/10/2020 4:05 PM JOY OPERATOR DTL Glucose, S 86 70 - 140 mg/dL 11/10/2020 4:05 PM JOY OPERATOR DTL Protein, Total, S 6.4 6.3 - 7.9 g/dL 11/10/2020 4:05 PM JOY OPERATOR DTL Albumin, S 4.3 3.5 - 5.0 g/dL 11/10/2020 4:05 PM JOY OPERATOR DTL Aspartate Aminotransferase (AST), S 21 8 - 43 U/L 11/10/2020 4:05 PM JOY OPERATOR DTL Alkaline Phosphatase, S 78 35 - 104 U/L 11/10/2020 4:05 PM JOY OPERATOR DTL Alanine Aminotransferase (ALT), S 21 7 - 45 U/L 11/10/2020 4:05 PM JOY OPERATOR DTL Bilirubin, Total, S 0.3 <=1.2 mg/dL 11/10/2020 4:05 PM JOY OPERATOR DTL Blood (Blood, Venous) 11/10/2020 3:14 PM JOY OPERATOR 11/10/2020 3:37 PM JOY OPERATOR us Dorian Mensah Ph.D. LAB BLOOD ADD-ON Final Re sult [facility] [address] [place] [address], [place] DTL [facility] [address] [place] [address] from Last 3 Months or Most Recently Relevant to Health Maintenance Insurance [facility] MEDICARE Advance Directives For more information, please contact: [phone] Documents on File Type Date Recorded Patient Strip Cutting Machine Operator Expl anation Advance Directives 11/29/2006 12:00 AM Leg acy document. See document viewer. Care Teams Batch Plant Operator Relationship Specialty Start Date End Date Elsewhere, Pcp PCP - General Family Medicine 10/09/18
--- OUTSIDE RECORDS SUMMARY | 2024-07-12 11:33 | XMS_ITS | Encounter Summary ---
Author Organization [facility] Address [address] [place] [address] Care Team Providers Care Technical Writing Lead/Mgr Name Role Phone Elsewhere, Pcp Primary Care Provider Unavailabl e Encounter Details Date Type Department Care Team (Late st Contact Info) Description 01/19/2007 Historical Ophthalmology [facility] [place] [address] Social History Tobacco Use Types Packs/Day Years Used Date Smoking Tobacco: Never Assessed Comments Unknown Sex and Gender Information Value Date Recorded Sex Assigned at Not on file Legal Sex Female 9:44 AM SOCK TURNER Gender Identity Not on file Sexual Orientation [...] thyroidectomy at least 15 yrs ago in [facility]3]. On synthroid now Eyes: last year thought [...] right trochleitis CDM Reports - EYEGEN Id: [id number] Status: Fnl documented in this encounter Plan of Treatment Upcoming Encounters Date Type Department Care Team (Late st Contact Info) Description 07/16/2024 11:30 AM CDT Office Visit Department of Family Medicine, [facility], in [place], [place] [address] [place] [phone] Bethany Talamantes APRN, C.N.P. [address] [place] [phone] documented as of this encounter Visit Diagnoses Not on filedocumented in this encounter Care Teams Technical Writing Lead/Mgr Relationship Specialty Start Date End Date Elsewhere, Pcp PCP - General Family Medicine 10/09/18 documented as of this encounter
== END 2024-07-11 15:49 | disposition home or self-care (01) ==
LOC: NFLDREF 07-12 11:31
PROVIDERS: PCP Internal Medicine; Referring Provider Internal Medicine; Visit Provider Family Medicine
DX: N39.0 Urinary tract infection, site not specified (principal)
CPT/HCPCS: 87086

== ENCOUNTER 2024-12-28 09:19 | Outpatient (CLI) | payer MEDICARE, BC, SELFPAY | END 2024-12-28 09:20 | disposition home or self-care (01) | LOC: NFLDREF 01-01 01:16 | PROVIDERS: PCP Internal Medicine; Referring Provider Internal Medicine; Visit Provider Internal Medicine | DX: E03.9 Hypothyroidism, unspecified (principal); I10 Essential (primary) hypertension | CPT/HCPCS: 80048; 84443 ==

== ENCOUNTER 2025-01-14 09:08 | Outpatient (CLI) | payer MEDICARE, BC, SELFPAY | END 2025-01-14 09:09 | disposition home or self-care (01) | LOC: AMB 01-16 09:26 | PROVIDERS: PCP Internal Medicine; Visit Provider Family Medicine | DX: S59.912A Unspecified injury of left forearm, initial encounter (principal); W01.0XXA Fall on same level from slipping, tripping and stumbling without subsequent striking against object, initial encounter; Y92.22 Religious institution as the place of occurrence of the external cause | CPT/HCPCS: A0425; A0427 ==

== ENCOUNTER 2025-01-14 09:35 | Emergency (ER) | payer MEDICARE, BC, SELFPAY ==
--- OUTSIDE RECORDS SUMMARY | 2025-01-14 09:37 | XMS_ITS | Clinical Summary ---
Author Organization [facility] Address [address] [place] [address] Care Team Providers Care Maintenance Operator Name Role Phone Elsewhere, Pcp Primary Care Provider Unavailabl e Source Comments Patient records contain information from all sites at [facility]. For routine questions regarding patient records, call [phone] during business hours, M-F 8:00 AM - 5:00 PM Central Time. Record requests for emergency care only can be directed to [phone] at any time.[facility] Allergies Active Allergy Reactions Criticality Noted Date [...] by mouth daily. 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 Gender Identity Not on file Sexual Orientation Not on file Last Filed Vital Signs Vital Sign Reading Time Taken Comments Blood Pressure 129/55 11/13/2020 3:15 PM VAT HOUSE SUPERVISOR Pulse 60 11/13/2020 3:15 PM VAT HOUSE SUPERVISOR Temperature 36.3 C (97.3 F) 11/13/2020 3:09 PM VAT HOUSE SUPERVISOR Respiratory Rate 9 11/13/2020 3:15 PM VAT HOUSE SUPERVISOR Oxygen Saturation 99% 11/13/2020 3:15 PM VAT HOUSE SUPERVISOR Inhaled Oxygen Concentration - - Weight 74.4 kg (164 lb 0.4 oz) 11/13/2020 12:22 PM VAT HOUSE SUPERVISOR Height 165.6 cm (5' 5.2) 11/13/2020 12:22 PM CS T Body Mass Index 27.13 11/13/2020 12:22 PM VAT HOUSE SUPERVISOR Plan of Treatment Health Maintenance Due Date Last Done Comments Thyroid Stimulating Hormone (TSH) test for thyroid function 1940 Creatinine Level (Kidney Function Test) 11/10/2021 11/10/2020 Potassium Level 11/10/2021 11/10/2020 Sodium Level 11/10/2021 11/10/2020 Depression Screening (Annual PHQ-2) 09/19/2024 Fall Risk Screen (Annual) 09/19/2024 COVID-19 Vaccine (9 - Pfizer risk season) 2024 06/15/2024, 06/10/2023, 01/12/2023, Additional history exists DTaP,Tdap,and Td Vaccines (3 - Td or Tdap) 12/09/2030 12/09/2020, 12/16/2010, 08/07/2003 Pneumococcal vaccine (50+ years) Completed 04/24/2018, 03/31/2015, 01/13/2007 Zoster Vaccines Completed 07/26/2018, 02/2018, 02/06/2010 Colonoscopy Discontinued 11/13/2020 Colorectal Cancer Surveillance Discontinued RSV vaccine - (32-36 weeks) or 60+ years Completed 07/26/2023 Influenza Vaccine Completed 06/15/2024, , 06/28/2022, Additional history exists CT Colonography Discontinued Cologuard Discontinued IPV Vaccines Aged Out No longer eligi ble based on patient's age to complete this topic Medical Devices Implanted Type Area Glass Setter Device Identifier Shelf Expiration Date Model / Serial / Lot Knee Implant Knee Implant Bilateral : Knee Procedures Procedure Name Priority Date/Time Associated Diagnosis Comments COLONOSCOPY Routine 11/13/2020 2:12 PM VAT HOUSE SUPERVISOR Urgency Fecal Change In Bowel Habit COMPREHENSIVE METABOLIC PANEL, S/P Routine 11/10/2020 3:14 PM VAT HOUSE SUPERVISOR Abdominal Pain Urgency Fecal Change In Bowel Habit from Last 3 Months or Most Recently Relevant to Health Maintenance Results * Colonoscopy (11/13/2020 2:12 PM VAT HOUSE SUPERVISOR) 11/13/2020 2:12 PM VAT HOUSE SUPERVISOR Impressions [employer] [employer] - 11/13/2020 3:05 PM VAT HOUSE SUPERVISOR Post-op Diagnoses: - Diverticulosis in the entire examined colon. - Internal hemorrhoids. - No specimens collected. Narrative [employer] - 11/13/2020 3:05 PM VAT HOUSE SUPERVISOR [facility] 9 GI GI Patient Name: Lorraine Caldwell Date of : 1940 Age: 80 Gender: Female Procedure Date: 11/13/2020 Procedure: Colonoscopy Providers: Neda Garcia MD, Gustavo Sahu MD (Fellow) Referring Provider: Ankit Diaz.,B.Ch., Ph.D. Pre-op Diagnoses: High risk colon cancer surveillance: Personal history of colonic polyps Recommendation: - Repeat colonoscopy in 5 years for surveillance if previous polyps were adenomatous, otherwise shared decision making given her current age. Findings: The perianal and digital rectal examinations were normal. Multiple small and large-mouthed diverticula were found in the entire colon. Internal hemorrhoids were found during retroflexion. Procedural Details: The patient was seen, evaluated, history reviewed, airway and heart-lung exams were performed by licensed provider and were satisfactory for planned level of sedation care. The risks, benefits and alternatives for the procedure and sedation were discussed and informed consent was obtained. A procedural pause was conducted in the presence of assisting personnel to verify the correct patient identity and procedure to be performed. Throughout the procedure, the patient's blood pressure, pulse, and oxygen saturations were monitored continuously. The Pediatric Colonoscope was introduced under direct vision through the anus and advanced to the cecum, identified by appendiceal orifice and ileocecal valve. The colonoscopy was performed without difficulty. The patient tolerated the procedure well. The quality of the bowel preparation was evaluated using the BBPS ([place] Bowel Preparation Scale) with scores of: Right Colon = 3, Transverse Colon = 3 and Left Colon = 3 (entire mucosa seen well with no residual staining, small fragments of stool or opaque liquid). The total BBPS score equals 9. Estimated Blood Loss: Estimated blood loss: none. Complications: No immediate complications. Sedation: Moderate (conscious) sedation was administered by the endoscopy nurse and supervised by the endoscopist. The patient's oxygen saturation, heart rate, blood pressure and response to care were monitored. Total physician intraservice time was 33 minutes. Attending Participation: I was present and participated during the entire procedure, including non-tinoco portions. Neda Garcia MD 11/13/2020 3:05:18 PM This report has been signed electronically. Number of Addenda: 0 us Dorian Sanders B.Ch., Ph.D. GI PROCEDURE ORDERABLES Final Result [facility] NA * (ABNORMAL) Comprehensive Metabolic Panel (11/10/2020 3:14 PM VAT HOUSE SUPERVISOR) Potassium, S 4.3 3.6 - 5.2 mmol/L 11/10/2020 4:05 PM VAT HOUSE SUPERVISOR DTL Sodium, S 137 135 - 145 mmol/L 11/10/2020 4:05 PM VAT HOUSE SUPERVISOR DTL Chloride, S 98 98 - 107 mmol/L 11/10/2020 4:05 PM VAT HOUSE SUPERVISOR DTL Bicarbonate, S 30(H) 22 - 29 mmol/L 11/10/2020 4:05 PM VAT HOUSE SUPERVISOR DTL Anion Gap 9 7 - 15 11/10/2020 4:05 PM VAT HOUSE SUPERVISOR DTL BUN (Blood Urea Nitrogen), S 20 6 - 21 mg/dL 11/10/2020 4:05 PM VAT HOUSE SUPERVISOR DTL Creatinine 0.97 0.59 - 1.04 mg/dL 11/10/2020 4:05 PM VAT HOUSE SUPERVISOR DTL eGFR-Non Black/ 56(L) >=60 mL/min/BS A 11/10/2020 4:05 PM VAT HOUSE SUPERVISOR DTL Comment: ----ADDITIONAL INFORMATION---- Estimated GFR calculated using the 2009 CKD_EPI creatinine equation. eGFR-Black/ 64 >=60 mL/min/BS A 11/10/2020 4:05 PM VAT HOUSE SUPERVISOR DTL Comment: ----ADDITIONAL INFORMATION---- Estimated GFR calculated using the 2009 CKD_EPI creatinine equation. Calcium, Total, S 9.4 8.8 - 10.2 mg/dL 11/10/2020 4:05 PM VAT HOUSE SUPERVISOR DTL Glucose, S 86 70 - 140 mg/dL 11/10/2020 4:05 PM VAT HOUSE SUPERVISOR DTL Protein, Total, S 6.4 6.3 - 7.9 g/dL 11/10/2020 4:05 PM VAT HOUSE SUPERVISOR DTL Albumin, S 4.3 3.5 - 5.0 g/dL 11/10/2020 4:05 PM VAT HOUSE SUPERVISOR DTL Aspartate Aminotransferase (AST), S 21 8 - 43 U/L 11/10/2020 4:05 PM VAT HOUSE SUPERVISOR DTL Alkaline Phosphatase, S 78 35 - 104 U/L 11/10/2020 4:05 PM VAT HOUSE SUPERVISOR DTL Alanine Aminotransferase (ALT), S 21 7 - 45 U/L 11/10/2020 4:05 PM VAT HOUSE SUPERVISOR DTL Bilirubin, Total, S 0.3 <=1.2 mg/dL 11/10/2020 4:05 PM VAT HOUSE SUPERVISOR DTL Blood (Blood, Venous) 11/10/2020 3:14 PM VAT HOUSE SUPERVISOR 11/10/2020 3:37 PM VAT HOUSE SUPERVISOR Dorian Sanders, B.Ch., Ph.D. LAB BLOOD AD D-ON Final Result [facility] [address] [place] [address], [place] DTL [facility] [address] [place] [address] from Last 3 Months or Most Recently Relevant to Health Maintenance Insurance [facility] MEDICARE Advance Directives For more information, please contact: [phone] Documents on File Type Date Recorded Patient Solar Sales Specialist Expl anation Advance Directives 11/29/2006 12:00 AM Leg acy document. See document viewer. Care Teams Maintenance Operator Relationship Specialty Start Date End Date Elsewhere, Pcp PCP - General Family Medicine 10/09/18
--- OUTSIDE RECORDS SUMMARY | 2025-01-14 09:37 | XMS_ITS | Clinical Summary ---
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 Gender Identity Not on file Sexual Orientation Not on file Plan of Treatment Health Maintenance Due Date Last Done Comments ADVANCE CARE PLANNING 1940 ANNUAL REVIEW OF HM ORDERS 1940 DEXA 1940 FALL RISK ASSESSMENT 2006 MEDICARE ANNUAL WELLNESS VISIT 2006 RSV VACCINE (1 - 1-dose 75+ series) 2016 PHQ-2 (once per calendar year) 2024 COVID-19 Vaccine ( season) 2024 06/15/2024, 06/10/2023, 01/12/2023, Additional history exists DTAP/TDAP/TD IMMUNIZATION (3 - Td or Tdap) 12/09/2030 12/09/2020, 12/16/2010, 08/07/2003 Pneumococcal Vaccine: 50+ Years Completed 04/24/2018, 03/31/2015, 01/13/2007 ZOSTER IMMUNIZATION Completed 07/26/2018, 04/24/2018, 02/06/2010 INFLUENZA VACCINE Completed 06/15/2024, , 06/28/2022, Additional history exists HPV IMMUNIZATION Aged Out No longer e ligible based on patient's age to complete this topic MENINGITIS IMMUNIZATION Aged Out No l onger eligible based on patient's age to complete this topic Insurance [facility] [employer] [facility] [employer] MEDICARE [facility] [place] MED[place] Care Teams Fire Prevention Bureau Captain Relationship Specialty Start Date End Date Frieda Alfaro MD [facility] [address] [place] [address] PCP - General Internal Medicine 11/19/20
--- OUTSIDE RECORDS SUMMARY | 2025-01-14 09:37 | XMS_ITS | Encounter Summary ---
Author Organization [facility] Address [address] [place] [address] Care Team Providers Care Cement Tester Assistant Name Role Phone Elsewhere, Pcp Primary Care Provider Unavailabl e Encounter Details Date Type Department Care Team (Late st Contact Info) Description 01/19/2007 Historical Ophthalmology [facility] 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 On synthroid now Eyes: last year thought [...] right trochleitis CDM Reports - EYEGEN Id: [id number] Status: Fnl documented in this encounter Plan of Treatment Not on file documented as of this encounter Visit Diagnoses Not on filedocumented in this encounter Care Teams Cement Tester Assistant Relationship Specialty Start Date End Date Elsewhere, Pcp PCP - General Family Medicine 10/09/18 documented as of this encounter
--- OUTSIDE RECORDS SUMMARY | 2025-01-14 09:37 | XMS_ITS | Clinical Summary ---
Author Organization [facility] Address [address] [place] [address] Care Team Providers Care Dressmaking Teacher Name Role Phone Frieda Alfaro MD Primary Care Provider [phone] Jorge Garcia MD Unavailable Allergies Active Allergy Reactions Criticality Noted Date Comments Hydroxyzine Hallucinations 03/14/2018 Atorvastatin Rash 05/09/2007 Sulfa (Sulfonamide Antibiotics) 03/20 Tramadol 12/22/2007 Ezetimibe Rash 05/09/2007 Medications POLICOSANOL 10 MG TAB 20mg daily 0 12/22/2007 Active FISH OIL 1,200 MG-144 MG-216 MG CAP 0 12/22/2007 Active GREEN TEA CAP 600mg 0 12/22/2007 Activ e IBUPROFEN 600 MG TAB prn 0 12/22/2007 Active HYDROCHLOROTHIA ZIDE 25 MG TAB take one tablet daily [...] breast (female), unspecifi ed site 04/12/2007 Immunizations Immunization Administration Dates Next Due AMB Influenza, IIV3 (Age >=3 years)(Flu Clinic [facility]) 07/25/2008 Td (Age >=7 Years) 08/07/2003 Social History Tobacco Use Types Packs/Day Years Used Date Smoking Tobacco: Never Passive Smoke Exposure: Never Tobacco Cessation:Counseling Given: Not Answered Alcohol Use Standard Drinks/Week Comments Yes 1 (1 standard drink = 0.6 oz pur e alcohol) Comments No Sex and Gender Information Value Date Recorded Sex Assigned at Not on file Legal Sex Female 6:05 AM PHYSICIST [employer]ARTH Gender Identity Not on file Sexual Orientation [...] on same day) for age 18+ 1959 Pneumococcal series for age 50+ (1 of 1 - PCV) 1991 Zoster (shingles) series for age 50+ (1 of 2) 1991 DEXA/DXA scan for age 65+ 2006 Medicare Wellness for age 65+ 2006 Tetanus booster 08/07/2013 08/07/2003 RSV vaccine for adults or (1 - 1-dose 75+ series) 2016 COVID-19 vaccine series ( season) 2024 06/15/2024, 06/10/2023, 01/12/2023, Additional history exists Influenza Vaccine (Season Ended) 2025 07/25/20 08 Insurance MEDICARE PART B HB ONLY [place] [place] BL[place] MR PB ONLY Care Teams Dressmaking Teacher Relationship Specialty Start Date End Date Frieda Alfaro MD [address] [place] [address] PCP - General Internal Medicine 04/03/13 Jorge Garcia MD [address] [place] [id number] Surgery - Urology 07/02/24
[2025-01-14 09:42] VITALS: BP 151/67; PULSE 84; RESP 18; TEMP 36.8; O2SAT 97; BMI 27.0
--- NOTE | 2025-01-14 09:46 | CRLHL7_ITS ---
For Patients: As a result of the Cures Act, medical imaging exams and procedure reports are released immediately into your electronic medical record. You may view this report before your referring provider. If you have questions, please contact your health care provider. Indication: Pain, fall Technique: Two views left shoulder Comparison: None Findings/Impression: Acute oblique fracture at the surgical neck of the left humerus without significant displacement. No dislocation at the glenohumeral joint. Dictated by Xavier Gusman MD @ 01/14/2025 10:57:07 AM (Electronically Signed)
--- NOTE | 2025-01-14 09:46 | CRLHL7_ITS ---
For Patients: As a result of the Cures Act, medical imaging exams and procedure reports are released immediately into your electronic medical record. You may view this report before your referring provider. If you have questions, please contact your health care provider. Indication: Fall and pain Technique: Two views left elbow Comparison: None Findings/Impression: There is a comminuted fracture of the distal left humerus with a transverse supracondylar component as well as a vertical component extending to the articular surface. Additional oblique nondisplaced component at the level of the capitellum. Mild anterior displacement butterfly fragments. Associated elbow effusion with soft tissue swelling. Dictated by Xavier Gusman MD @ 01/14/2025 10:58:49 AM (Electronically Signed)
[2025-01-14] MEDS: HYDROmorphone 0.5 mg/0.5 ml inj IVP ×2 (10:00→10:38)
--- NOTE | 2025-01-14 10:03 | ED_ITS ---
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 She did not hit her head, there is no loss of consciousness, but she can not really move her left shoulder at all. She tells me she has 4 chin she did in her right shoulder which she has a total shoulder arthroplasty, denies any pain in the chest, neck head, or pelvis or lower extremities. He is not on any anticoagulants, not really able to move her shoulder or her left elbow at all, denies any significant numbness tingling or weakness. Associated with this this just occurred approximately 30 minutes ago was brought in by EMS. MD complaint: injury to: left Onset (ago): minute(s) Other Extremity Injury: Left: elbow and shoulder Other injuries: none Hand dominance: Right Place: other Severity: moderate Exacerbating factors: movement of extremity Context: fall Associated symptoms: denies other symptoms Related Data Home Medications ?Medication ?Instructions ?Recorded ?Confirmed calcium 600 mg (as carbonate)-vit 1 tab PO DAILY 06/29/22 01/01/25 D3 1,000 unit-vitamin K2 90 mcg tab naproxen sodium 220 mg tablet 220 mg PO BID PRN 01/01/25 01/01/25 (Aleve) Previous Rx's ?Medication ?Instructions ?Recorded hydrochlorothiazide 25 mg tablet 25 mg PO QDAY #90 tabs 01/01/25 levothyroxine 50 mcg tablet 50 mcg PO QDAY #90 tabs 01/01/25 lisinopril 5 mg tablet 5 mg PO QDAY #90 tabs 01/01/25 trazodone 50 mg tablet 50 - 100 mg (1 - 2 x 50 mg) PO QHS 01/01/25 #180 tabs Allergies Allergy/AdvReac Type Severity Reaction Status Date / Time ezetimibe Allergy Severe Hives Verified 01/01/25 08:23 celecoxib Allergy Unknown Rash Verified 01/01/25 08:23 hydroxyzine Allergy Unknown Confusion Verified 01/01/25 08:23 tramadol (From Ultram) Allergy Unknown Verified 01/01/25 08:23 atorvastatin (From Lipitor) AdvReac Intermediate Verified 01/01/25 08:23 Sulfa (Sulfonamide AdvReac Intermediate Rash Verified 01/01/25 08:23 Antibiotics) Review of Systems Status of ROS: Reports: 10 or more systems reviewed and unremarkable except as noted in History and below PFSH PFS Medical History History of breast cancer ?Z85.3 - Personal history of malignant neoplasm of breast (ICD-10) History of atrial fibrillation ?Z86.79 - Personal history of other diseases of the circulatory system (ICD- 10) Surgical History History of thyroidectomy ?E89.0 - Postprocedural hypothyroidism (ICD-10) History of total knee replacement ?Z96.659 - Presence of unspecified artificial knee joint (ICD-10) History of suburethral sling procedure ?Z98.890 - Other specified postprocedural states (ICD-10) History of appendectomy ?Z90.49 - Acquired absence of other specified parts of digestive tract (ICD- 10) History of partial thyroidectomy ?E89.0 - Postprocedural hypothyroidism (ICD-10) History of hysteroscopy ?Z98.890 - Other specified postprocedural states (ICD-10) History of total shoulder replacement ?Z96.619 - Presence of unspecified artificial shoulder joint (ICD-10) History of bilateral mastectomy ?Z90.13 - Acquired absence of bilateral breasts and nipples (ICD-10) History of cataract surgery ?Z98.49 - Cataract extraction status, unspecified eye (ICD-10) History of tubal ligation ?Z98.51 - Tubal ligation status (ICD-10) History of section ?Z98.891 - History of uterine scar from previous surgery (ICD-10) History of arthroscopy of right knee ?Z98.890 - Other specified postprocedural states (ICD-10) Family History Brother Colonic polyp Social History What is your current living situation?: I presently have a place to live Problems where you live: no known problems In the past 12 months, utilities in danger of being shut off: no In past 12 months, lack of transportation kept you from medical appts, meetings, work, or getting things needed for daily living: no In the past 12 mos, have been you worried that your food would run out before you had money to buy more?: never true In the past 12 mos, the food you bought just didn't last and you didn't have money to buy more?: never true Smoking Status: Never smoker Do you use any of these nicotine containing products: None Second hand tobacco smoke exposure: No How often do you have a drink containing alcohol: never How often do you have six or more drinks on one occasion: Never AUDIT-C Alcohol total score: 0 Non-prescribed substance use: denies use How often does anyone, including family, friends and others, physically hurt you : never How often does anyone, including family, friends and others, insult or talk down to you: rarely How often does anyone, including family, friends and others, threaten you with harm: never How often does anyone, including family, friends and others, scream or curse at you: never service: No Health Related Social Needs: Other personal risk factors, not elsewhere classified (Z91.89) Exam Narrative: Exam Narrative: On examination room 6 she is in no apparent distress she is alert and oriented x3, no immobilization is been done her pupils are equal round reactive to light, no scleral icterus redness TMs are normal oropharynx is normal no evidence of any trauma or bruising swelling is noted over the head or neck region, her neck is excellent range of motion of flexion extension lateral flexion and cervical rotation there is no tenderness to palpation, her chest has non tender, to palpation both anteriorly posterior Sandra, thoracic and lumbar spines palpate normal. Good air entry bilaterally no wheezing crackles noted heart sounds are normal, her abdomen is soft and benign, no tenderness to palpation, no organomegaly. 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 Const: Vital Signs, click to edit/add: Vital Signs - 24 hr 01/14/25 09:42 01/14/25 11:40 Temperature 98.3 F 97.8 F Pulse Rate [Pulse Oximeter] 84 76 Respiratory Rate 18 16 Blood Pressure [Ri ght Upper Arm] 151/67 H 161/69 H Pulse Oximetry 97 99 Oxygen Delivery Me thod Room Air Room Air Course Consultations Consultation #1: I spoke to orthopedist , this is too complex and she will require surgery for this of her elbow. He thought that the shoulder proximal humeral head no it was sitting appropriately, and this likely can be treated conservatively. He recommends transfer to a trauma center, for specialized care. I discussed this with the patient and also the patient's daughter Arinaa Pradhan in [place] [phone] She was placed in a long-arm splint, with the elbow flexed to approximately 40?, she tolerated this well, there is a small abrasion noted of her lateral elbow. This appeared to be an abrasion and not of what I would suspect would be an open fracture. Bacitracin and also Telfa was applied over this. Post splinting, she was neurovascularly intact moving her fingers wrist, with good cap refill and good radial pulse. Time: 11:27 Consultation #2: I spoke to Dr. Payan at [facility] he accepted the patient in transfer, she be sent by ALS because of her need of pain m edication, and splinting. X-ray films will be pushed electronically to [facility]. Time: 11:27 Vital Signs Vital signs: Initial Vital Signs Temperature 98.3 F 01/14/25 09:42 Temperature Source Temporal Artery Scan 01/14/25 09:42 Pulse Rate 84 01/14/25 09:42 Respiratory Rate 18 01/14/25 09:42 Blood Pressure 151/67 H 01/14/25 09:42 Blood Pressure Mean 95 01/14/25 09:42 Blood Pressure Position Supine 01/14/25 09:42 Pulse Oximetry 97 01/14/25 09:42 Oxygen Delivery Method Room Air 01/14/25 09:42 Vital Signs Temperature 98.3 F 01/14/25 09:42 Pulse Rate 84 01/14/25 09:42 Respiratory Rate 18 01/14/25 09:42 Blood Pressure 151/67 H 01/14/25 09:42 Pulse Oximetry 97 01/14/25 09:42 Oxygen Delivery Method Room Air 01/14/25 09:42 Temperature 97.8 F 01/14/25 11:40 Pulse Rate 76 01/14/25 11:40 Respiratory Rate 16 01/14/25 11:40 Blood Pressure 161/69 H 01/14/25 11:40 Pulse Oximetry 99 01/14/25 11:40 Oxygen Delivery Method Room Air 01/14/25 11:40 Medications Administered Medications: Discontinued Medications Generic Name Dose Route Start Last Admin Trade Name Freq PRN Reason Stop Dose Admin Hydromorphone HCl 0.5 mg 01/14/25 09:46 01/14/25 10:00 Hydromorphone 0.5 Mg/0.5 Ml Inj IVP 01/14/25 09:47 0.5 mg ONCE ONE Administration Hydromorphone HCl 0.5 mg 01/14/25 10:34 01/14/25 10:38 Hydromorphone 0.5 Mg/0.5 Ml Inj IVP 01/14/25 10:35 0.5 mg ONCE ONE Administration MDM - Extremity Injury (Upper) MDM Narrative Medical decision making narrative: This very nice lady fell, she appears to have no stigmata of significant head or spinal injury. I would recommend that we do x-rays of her left shoulder and elbow, she is requesting something a little stronger for pain medication IV will be started we will use some Dilaudid, further care per x-ray findings, The time of this dictation her basic metabolic profile is pending, her hematology profile did not show any acute abnormalities. Medical Records Attestation: I reviewed the patient's medical records. Lab Data Attestation: I reviewed the patient's lab results. Labs: Lab Results 01/14/25 Range/Units 09:55 WBC 5.51 (4.50-11.00) K/uL RBC 4.59 (4.00-5.20) m/uL Hgb 14.5 (12.0-16.0) gm/dL Hct 42.7 (33.0-51.0) % MCV 93 (80-100) fL MCH 32 (26-34) pg MCHC 34 (32-36) gm/dL RDW Coeff of Dominga 13.1 (11.5-15.5) % Plt Count 183 (140-440) K/uL Neut % (Auto) 73.0 H (42.0-72.0) % Lymph % (Auto) 16.7 L (20-44) % [place] % (Auto) 8.3 (0.0-11.0) % Eos % (Auto) 1.1 (0.0-7.0) % Baso % (Auto) 0.5 (0.0-3.0) % Neut # (Auto) 4.00 (1.7-7.0) K/uL Lymph # (Auto) 0.90 (0.90-2.90) K/uL [place] # (Auto) 0.50 (0.00-0.90) K/UL Eos # (Auto) 0.06 (0.00-0.50) K/uL Baso # (Auto) 0.03 (0.00-0.30) K/uL Abs Immat Gran (auto) 0.02 (0.00-0.30) K/uL Imm/Tot Granulo (auto) 0.4 % Sodium 133 L (135-149) mmol/L Potassium 4.1 (3.6-5.1) mmol/L Chloride 98 (96-114) mmol/L Carbon Dioxide 26 (20-32) mmol/L Anion Gap 9 (7-15) mEq/L BUN 22 (7-30) mg/dL Creatinine 0.9 (0.5-1.5) mg/dL Estimated Creat Clear 33.71 Estimated GFR 63 ml/min Glucose 111 (60-115) mg/dL Calcium 9.2 (8.4-10.6) mg/dL Mild hyponatremia is noted. I do note in her chart that she has a history of chronic hyponatremia Imaging Data Left shoulder x-ray: Attestation: I have reviewed the pertinent imaging results. My impression: Complex left shoulder x-ray, with comminution through till the glenoid. Appears to be on the Y-view sitting appropriately, also was the T intercondylar elbow fracture of the distal issue distal humeral. Radiologist's impression: atient: Lorraine Caldwell MR#: [id number] : 1940 Acct:[id number] Loc: ED Service Date: 01/14/25 Attending : Ordering Physician: Adalberto Fischer M.D. Date of Service: 01/14/25 Procedure(s): XR shoulder LT min 2V Accession Number(s): [id number] cc: Frieda Alfaro M.D.; Adalberto Fischer M.D.~ For Patients: As a result of the Cures Act, medical imaging exams and procedure reports are released immediately into your electronic medical record. You may view this report before your referring provider. If you have questions, please contact your health care provider. Indication: Pain, fall Technique: Two views left shoulder Comparison: None Findings/Impression: Acute oblique fracture at the surgical neck of the left humerus without significant displacement. No dislocation at the glenohumeral joint. Dictated by Xavier Gusman MD @ 01/14/2025 10:57:07 AM (Electronically Signed)[place] [address] Diagnostic Imaging Report Patient: Lorraine Caldwell MR#: [id number] : 1940 Acct:[id number] Loc: ED Service Date: 01/14/25 Attending : Ordering Physician: Adalberto Fischer M.D. Date of Service: 01/14/25 Procedure(s): XR elbow LT 2V Accession Number(s): [id number] cc: Frieda Alfaro M.D.; Adalberto Fischer M.D.~ For Patients: As a result of the Cures Act, medical imaging exams and procedure reports are released immediately into your electronic medical record. You may view this report before your referring provider. If you have questions, please contact your health care provider. Indication: Fall and pain Technique: Two views left elbow Comparison: None Findings/Impression: There is a comminuted fracture of the distal left humerus with a transverse supracondylar component as well as a vertical component extending to the articular surface. Additional oblique nondisplaced component at the level of the capitellum. Mild anterior displacement butterfly fragments. Associated elbow effusion with soft tissue swelling. Dictated by Xavier Gusman MD @ 01/14/2025 10:58:49 AM (Electronically Sign ECG Data Attestation: I personally reviewed and interpreted this ECG as follows: ECG interpretation date: 01/14/25 Prior ECG tracings: available for review Interpretation: EKG shows normal sinus rhythm, with a ventricular rate of 62, QT is 400 and QTC is 406. QRS is normal at [address] wave changes are normal notable. In comparison to old EKG from 12/29/2022, no appreciable change. Assessment: Normal EKG Discharge Plan Discharge Clinical Impression: Closed fracture of head of left humerus, Closed fracture dislocation of left elbow, Abrasion of elbow, left, Fall, Hyponatremia Prescriptions: No Action naproxen sodium [Aleve] 220 mg tablet 220 mg PO BID PRN hydrochlorothiazide 25 mg tablet 25 mg PO QDAY Qty: 90 3RF levothyroxine 50 mcg tablet 50 mcg PO QDAY Qty: 90 3RF lisinopril 5 mg tablet 5 mg PO QDAY Qty: 90 3RF trazodone 50 mg tablet 50 - 100 mg PO QHS Qty: 180 3RF calcium carb-vitamin D3-vit K2 600 mg-1,000 unit-90 mcg tablet 1 tab PO DAILY Follow Up/Referrals: Frieda Alfaro MD [Primary Care Provider] -
--- OUTSIDE RECORDS SUMMARY | 2025-01-14 10:03 | XMS_ITS | Clinical Summary ---
Author Organization [facility] Address [address] [place] [address] Care Team Providers Care Grocery Clerk Marking Name Role Phone Elsewhere, Pcp Primary Care Provider Unavailabl e Source Comments Patient records contain information from all sites at [facility]. For routine questions regarding patient records, call [phone] during business hours, M-F 8:00 AM - 5:00 PM Central Time. Record requests for emergency care only can be directed to [phone] at any time.[facility] Allergies Active Allergy Reactions Criticality Noted [...] on file Legal Sex Female 9:44 AM SAND CUTTER Gender Identity Not on file Sexual Orientation Not on file Last Filed Vital Signs Vital Sign Reading Time Taken Comments Blood Pressure 129/55 11/13/2020 3:15 PM SAND CUTTER Pulse 60 11/13/2020 3:15 PM SAND CUTTER Temperature 36.3 C (97.3 F) 11/13/2020 3:09 PM SAND CUTTER Respiratory Rate 9 11/13/2020 3:15 PM SAND CUTTER Oxygen Saturation 99% 11/13/2020 3:15 PM SAND CUTTER Inhaled Oxygen Concentration - - Weight 74.4 kg (164 lb 0.4 oz) 11/13/2020 12:22 PM SAND CUTTER Height 165.6 cm (5' 5.2) 11/13/2020 12:22 PM CS T Body Mass Index 27.13 11/13/2020 12:22 PM SAND CUTTER Plan of Treatment Health Maintenance Due Date [...] this topic Medical Devices Implanted Type Area Sales Management Intern Device Identifier Shelf Expiration Date Model / Serial / Lot Knee Implant Knee Implant Bilateral : Knee Procedures Procedure Name Priority Date/Time Associated Diagnosis Comments COLONOSCOPY Routine 11/13/2020 2:12 PM SAND CUTTER Urgency Fecal Change In Bowel Habit COMPREHENSIVE METABOLIC PANEL, S/P Routine 11/10/2020 3:14 PM SAND CUTTER Abdominal Pain Urgency Fecal Change In Bowel Habit from Last 3 Months or Most Recently Relevant to Health Maintenance Results * Colonoscopy (11/13/2020 2:12 PM SAND CUTTER) 11/13/2020 2:12 PM SAND CUTTER Impressions [facility] [employer] - 11/13/2020 3:05 PM SAND CUTTER Post-op Diagnoses: - Diverticulosis in the entire examined colon. - Internal hemorrhoids. - No specimens collected. Narrative [facility] [employer] - 11/13/2020 3:05 PM SAND CUTTER [facility] 9 GI GI Patient Name: Lorraine [...] bowel preparation was evaluated using the BBPS ([place] Bowel Preparation Scale) with scores of: Right [...] Ph.D. GI PROCEDURE ORDERABLES Final Result [facility] NA * (ABNORMAL) Comprehensive Metabolic Panel (11/10/2020 3:14 PM SAND CUTTER) Potassium, S 4.3 3.6 - 5.2 mmol/L 11/10/2020 4:05 PM SAND CUTTER DTL Sodium, S 137 135 - 145 mmol/L 11/10/2020 4:05 PM SAND CUTTER DTL Chloride, S 98 98 - 107 mmol/L 11/10/2020 4:05 PM SAND CUTTER DTL Bicarbonate, S 30(H) 22 - 29 mmol/L 11/10/2020 4:05 PM SAND CUTTER DTL Anion Gap 9 7 - 15 11/10/2020 4:05 PM SAND CUTTER DTL BUN (Blood Urea Nitrogen), S 20 6 - 21 mg/dL 11/10/2020 4:05 PM SAND CUTTER DTL Creatinine 0.97 0.59 - 1.04 mg/dL 11/10/2020 4:05 PM SAND CUTTER DTL eGFR-Non Black/ 56(L) >=60 mL/min/BS A 11/10/2020 4:05 PM SAND CUTTER DTL Comment: ----ADDITIONAL INFORMATION---- Estimated GFR calculated using the 2009 CKD_EPI creatinine equation. eGFR-Black/ 64 >=60 mL/min/BS A 11/10/2020 4:05 PM SAND CUTTER DTL Comment: ----ADDITIONAL INFORMATION---- Estimated GFR calculated using the 2009 CKD_EPI creatinine equation. Calcium, Total, S 9.4 8.8 - 10.2 mg/dL 11/10/2020 4:05 PM SAND CUTTER DTL Glucose, S 86 70 - 140 mg/dL 11/10/2020 4:05 PM SAND CUTTER DTL Protein, Total, S 6.4 6.3 - 7.9 g/dL 11/10/2020 4:05 PM SAND CUTTER DTL Albumin, S 4.3 3.5 - 5.0 g/dL 11/10/2020 4:05 PM SAND CUTTER DTL Aspartate Aminotransferase (AST), S 21 8 - 43 U/L 11/10/2020 4:05 PM SAND CUTTER DTL Alkaline Phosphatase, S 78 35 - 104 U/L 11/10/2020 4:05 PM SAND CUTTER DTL Alanine Aminotransferase (ALT), S 21 7 - 45 U/L 11/10/2020 4:05 PM SAND CUTTER DTL Bilirubin, Total, S 0.3 <=1.2 mg/dL 11/10/2020 4:05 PM SAND CUTTER DTL Blood (Blood, Venous) 11/10/2020 3:14 PM SAND CUTTER 11/10/2020 3:37 PM SAND CUTTER Dorian Sanders, B.Ch., Ph.D. LAB BLOOD AD D-ON Final Result [facility] [address] [place] [address], [place] DTL [facility] [address] [place] [address] from Last 3 Months or Most Recently Relevant to Health Maintenance Insurance [facility] MEDICARE Advance Directives For more information, please contact: [phone] Documents on File Type Date Recorded Patient Leather Patcher Expl anation Advance Directives 11/29/2006 12:00 AM Leg acy document. See document viewer. Care Teams Grocery Clerk Marking Relationship Specialty Start Date End Date Elsewhere, Pcp PCP - General Family Medicine 10/09/18
--- OUTSIDE RECORDS SUMMARY | 2025-01-14 10:04 | XMS_ITS | Clinical Summary ---
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
--- OUTSIDE RECORDS SUMMARY | 2025-01-14 10:04 | XMS_ITS | Clinical Summary ---
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
--- OUTSIDE RECORDS SUMMARY | 2025-01-14 10:04 | XMS_ITS | Encounter Summary ---
Author Organization [facility] Address [address] [place] [address] Care Team Providers Care Groutman Name Role Phone Elsewhere, Pcp Primary Care Provider Unavailabl e Encounter Details Date Type Department Care Team (Late st Contact Info) Description 01/19/2007 Historical Ophthalmology [facility] 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 On synthroid now Eyes: last year [...] right trochleitis CDM Reports - EYEGEN Id: [id number] Status: Fnl documented in this encounter Plan of Treatment Not on file documented as of this encounter Visit Diagnoses Not on filedocumented in this encounter Care Teams Groutman Relationship Specialty Start Date End Date Elsewhere, Pcp PCP - General Family Medicine 10/09/18 documented as of this encounter
[2025-01-14 10:45] LABS: Basophils Absolute Auto 0.03 K/uL (0.00-0.30); Basophils Percent Auto 0.5 % (0.0-3.0); Eosinophils Absolute Auto 0.06 K/uL (0.00-0.50); Eosinophils Percent Auto 1.1 % (0.0-7.0); Hematocrit 42.7 % (33.0-51.0); Hemoglobin* 14.5 gm/dL (12.0-16.0); Immature Granulocytes Abs Auto 0.02 K/uL (0.00-0.30); Immature Granulocytes Pct Auto 0.4 %; Lymphocytes Percent Auto 16.7 % (20-44); Mean Corpuscular HGB Conc 34 gm/dL (32-36); Mean Corpuscular Hemoglobin 32 pg (26-34); Mean Corpuscular Volume 93 fL (80-100); Monocytes Percent Auto 8.3 % (0.0-11.0); Platelet Count* 183 K/uL (140-440); RDW Coefficient of Variation % 13.1 % (11.5-15.5); Red Blood Count 4.59 m/uL (4.00-5.20); White Blood Count* 5.51 K/uL (4.50-11.00)
[2025-01-14 10:46] LABS: Slide Review Reflex No
[2025-01-14 11:29] LABS: Chloride* 98 mmol/L (96-114); Potassium* 4.1 mmol/L (3.6-5.1); Sodium* 133 mmol/L (135-149)
[2025-01-14 11:33] LABS: Anion Gap 9 mEq/L (7-15); Blood Urea Nitrogen* 22 mg/dL (7-30); Calcium* 9.2 mg/dL (8.4-10.6); Carbon Dioxide* 26 mmol/L (20-32); Creatinine* 0.9 mg/dL (0.5-1.5); Est. Creatinine Clearance* 33.71; Estimated Glomerular Filt Rate 63 ml/min; Glucose* 111 mg/dL (60-115)
[2025-01-14 11:40] VITALS: BP 161/69; PULSE 76; RESP 16; TEMP 36.6; O2SAT 99
== END 2025-01-14 12:16 | disposition short-term general hospital (02) ==
PROVIDERS: Emergency Provider Family Medicine; PCP Internal Medicine
DX: S42.402A Unspecified fracture of lower end of left humerus, initial encounter for closed fracture (principal); W01.198A Fall on same level from slipping, tripping and stumbling with subsequent striking against other object, initial encounter; Y93.01 Activity, walking, marching and hiking; Y92.480 Sidewalk as the place of occurrence of the external cause
CPT/HCPCS: 36415; 73030; 73070; 80048; 85025; 93005; 96374; 96376; 99284; 99285; J1171

== ENCOUNTER 2025-01-14 12:06 | Outpatient (CLI) | payer MEDICARE, BC, SELFPAY | END 2025-01-14 12:07 | disposition home or self-care (01) | LOC: AMB 01-16 09:33 | PROVIDERS: PCP Internal Medicine; Visit Provider Family Medicine | DX: S59.912A Unspecified injury of left forearm, initial encounter (principal); W01.0XXA Fall on same level from slipping, tripping and stumbling without subsequent striking against object, initial encounter; Y92.22 Religious institution as the place of occurrence of the external cause | CPT/HCPCS: A0425; A0427 ==

== ENCOUNTER 2025-02-18 11:04 | Outpatient (CLI) | payer MEDICARE, BC, SELFPAY | END 2025-02-18 11:05 | disposition home or self-care (01) | PROVIDERS: PCP Internal Medicine; Visit Provider Internal Medicine | DX: S42.415A Nondisplaced simple supracondylar fracture without intercondylar fracture of left humerus, initial encounter for closed fracture (principal) | CPT/HCPCS: 80053; 83970; 84100; 84134 ==

== ENCOUNTER 2025-06-03 15:36 | Outpatient (CLI) | payer MEDICARE, BC, SELFPAY | END 2025-06-03 15:37 | disposition home or self-care (01) | PROVIDERS: PCP Internal Medicine; Visit Provider Internal Medicine | DX: G31.84 Mild cognitive impairment of uncertain or unknown etiology (principal); E87.1 Hypo-osmolality and hyponatremia; E03.9 Hypothyroidism, unspecified; I10 Essential (primary) hypertension | CPT/HCPCS: 80053; 82306; 82607; 83735; 84165; 84443 ==

== ENCOUNTER 2025-06-13 15:15 | Outpatient (CLI) | payer MEDICARE, BC, SELFPAY ==
--- NOTE | 2025-06-13 15:30 | CRLHL7_ITS ---
For Patients: As a result of the Century Cures Act, medical imaging exams and procedure reports are released immediately into your electronic medical record. You may view this report before your referring provider. If you have questions, please contact your health care provider. INDICATION: Mild cognitive impairment. TECHNIQUE: Multiplanar MRI of the brain was performed without the administration of intravenous contrast. COMPARISON: None. FINDINGS: No evidence of acute infarction or intracranial hemorrhage. A 1.1 cm extra-axial FLAIR hyperintense lesion along the right anterior falx, presumably a meningioma. No mass effect or parenchymal edema. There are moderate patchy and confluent T2/FLAIR hyperintensities in the subcortical and periventricular white matter. While nonspecific, this can be seen as sequel of chronic small vessel ischemia. The ventricles and sulci are prominent and proportionate reflecting moderate diffuse brain volume loss. No significant paranasal sinus mucosal thickening/secretions. No evidence of acute orbital pathology. There intra-ocular lens replacements bilaterally No significant mastoid effusion. No suspicious marrow signal abnormality. A well-defined ovoid T2/FLAIR hyperintense lesion in the left retroauricular soft tissues with corresponding restricted diffusion measuring 2.3 x 1.0 cm. IMPRESSION: 1. No acute intracranial abnormality. 2. 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 No mass effect or parenchymal edema. 3. Moderate nonspecific white matter change that can be seen as sequela of chronic small vessel ischemia. 4. Moderate diffuse brain volume loss. 5. A 2.3 cm lesion in the left retroauricular soft tissues favored to represent an epidermal inclusion cyst. Dictated by yS Juan MD @ 06/20/2025 2:09:37 PM (Electronically Signed)
== END 2025-06-13 15:16 | disposition home or self-care (01) ==
LOC: MRI 15:16
PROVIDERS: PCP Internal Medicine; Visit Provider Internal Medicine
DX: D32.0 Benign neoplasm of cerebral meninges (principal); I67.82 Cerebral ischemia
CPT/HCPCS: 70551